=== PATIENT | female | born 1965 | race Caucasian/White ===

== ENCOUNTER → 2016-07-08 | Day surgery (SDC) | payer BC ==
[~2016-07-08] MED LIST: Lactated Ringers 1,000 ML IV SCH; Lactated Ringers 1,000 ML ONE; Midazolam 1 MG/ML 2 ML SDV ONE; Propofol 200 MG/20 ML SDV ONE; Sodium Chloride 0.9% 10 ML Syringe FLUSH PRN; fentaNYL 100 MCG/2 ML SDV ONE
--- NOTE | 2016-07-08 10:34 | PCM.OPNOTE ---
- General Post-Op/Procedure Note Date of Surgery/Procedure: 07/08/16 Operative Procedure(s): 1. Diagnostic EGD with cold forceps biopsy. 2. Diagnostic colonoscopy Pre Op Diagnosis: History of recurrent diverticulitis, personal history of adenomatous colon polyps, history of diarrhea, hematochezia, family history of colon cancer in mother, left lower quadrant pain, history of gastritis, history of duodenitis, history of gastric ulcers, reflux, heartburn, inability to wean from PPI Post-Op Diagnosis: Normal appearing upper endoscopy, normal appearing colonoscopy with no evidence of diverticulitis [place] [facility] [place] [facility] [place]geon: Clarisa Mcwilliams Anesthesia Provider: Anita Lind Special Effects Specialist: Betty Mcclain Pathology: 1. Small bowel biopsy 2. Antral biopsy 3. Distal esophageal biopsy Fluid Replacement, Intraop: 1,200 (mL crystalloid ) EBL in mLs: 1 Complications: None Condition: Good Free Text/Narrative:: INDICATION FOR PROCEDURE: The patient is a 51-year-old woman who was referred to me by KIMBERLI Olguin for evaluation of multiple abdominal complaints and concern for recurrent diverticulitis. The patient has been treated for diverticulitis three times this year. CT yesterday did not demonstrate any diverticulitis. She has previously had colonoscopies in 2009 and 2011. Performing a colonoscopy and EGD and the associated risks of the procedures had been discussed with the patient. The patient found these risks acceptable and agreed to proceed. DESCRIPTION OF PROCEDURE: The patient was taken to the operating room and placed in the left lateral decubitus position. After induction of adequate sedation, a bite block was placed. A standard Olympus gastroscope was inserted into the oropharynx and guided down the esophagus without difficulty. The gastroesophageal junction was appreciated at 39 cm from the teeth. There was no evidence of stricture or esophageal ulcerations. The scope was advanced into the stomach, and there was no gastritis or gastric ulcers. The scope was passed into the proximal jejunum and the duodenum which were unremarkable. There were no petechiae or ulcerations. The proximal jejunum was grossly normal in appearance. Multiple cold forceps biopsies were obtained of the proximal jejunum and duodenum. The scope was withdrawn into the antrum, and additional cold forceps biopsies were obtained. The remainder of the gastric body was examined, and there were no additional findings. The scope was retroflexed, and there was no evidence of hiatal hernia. The scope was straightened and withdrawn to the GE junction. Additional cold forceps biopsies were obtained of the distal esophagus. The scope was withdrawn through the remainder of the esophagus and no further abnormalities were noted. The posterior oropharynx was grossly normal in appearance. The scope was fully withdrawn and attention was then turned to the colonoscopy. A digital rectal exam was performed which was unremarkable. An Olympus colonoscope was inserted into the rectum and guided under direct visualization to the appendiceal orifice and ileocecal valve. The scope was then slowly withdrawn through the colon. The quality of the prep was good. There was no evidence of angiodysplasias, diverticulum or mass lesions. There was no evidence of diverticulitis or other colonic inflammation. The scope was withdrawn into the rectum and retroflexed. There was no significant prominence of the patient's internal hemorrhoids. The scope was straightened, the colon was desufflated,and the scope was withdrawn. The patient was awakened from sedation and transferred to the recovery room in stable condition having tolerated the procedure well. POSTOPERATIVE PLAN: I discussed with the patient my intraoperative findings and recommendations. She should complete her antibiotic course to avoid antibiotic resistance development. I will refer her to Gastroenterology for suspicious of irritable bowel syndrome for further treatment. Also, gallbladder testing may be warranted and I have ordered this for her. She may try to wean off of her Zantac, Protonix, and Carafate as tolerated.
--- NOTE | 2016-07-08 12:25 | PCM.PREANE ---
Preanesthetic Assessment - Anesthesia/Transfusion/Family Hx Anesthesia History: Prior Anesthesia Without Reaction Type of Anesthesia Reaction: Other (see below) Family History of Anesthesia Reaction: No Type of Transfusion Reactions: Reports: Unknown - Review of Systems General: No Symptoms Pulmonary: Shortness of Breath (with activity), Other (asthma) Cardiovascular: No Symptoms, Other (htn) Gastrointestinal: Diarrhea, Nausea, Other (reflux) Other: Reports: Thyroid Problems - Physical Assessment NPO Status Date: 07/07/16 NPO Status Time: 23:30 Pulse: 79 O2 Sat by Pulse Oximetry: 96 Respiratory Rate: 16 Blood Pressure: 141/89 Temperature: 37.4 C Height: 1.6 m Weight: 108.862 kg ASA Class: 3 Mental Status: Alert & Oriented x3 Airway Class: Mallampati = 2 Dentition: Reports: Normal Dentition Thyro-Mental Finger Breadths: 3 Mouth Opening Finger Breadths: 2 ROM/Head Extension: Full - Allergies Allergies/Adverse Reactions: Allergies Allergy/AdvReac Type Severity Reaction Status Date / Time Anesthetics - Amide Type Allergy Rash Verified 07/07/16 13:17 Anesthetics - Radha Type- Allergy Rash Verified 07/07/16 13:17 Parabens [Anesthetics - Radha Type] benzalkonium chloride Allergy Rash Verified 07/07/16 13:17 methylparaben Allergy Rash Verified 07/07/16 13:17 Sulfa (Sulfonamide AdvReac Nausea and Verified 07/07/16 13:17 Antibiotics) Vomiting local anesthetics Allergy Rash Uncoded 07/07/16 13:17 - Blood Blood Available: No Product(s) Available: None - Anesthesia Plan Pre-Op Medication Ordered: None - Acknowledgements Anesthesia Type Planned: MAC Pt an Appropriate Candidate for the Planned Anesthesia: Yes Alternatives and Risks of Anesthesia Discussed w Pt/Guardian: Yes Pt/Guardian Understands and Agrees with Anesthesia Plan: Yes PreAnesthesia Questionnaire Cardiovascular History: Reports: Hypertension, Other (See Below) Other Cardiovascular History: varicose veins Respiratory History: Reports: Asthma Gastrointestinal History: Reports: GERD, Hemorrhoids, Irritable Bowel Syndrome, Other (See Below) Other Gastrointestinal History: adenamatous colon polyp, magligant neoplasm of GI tract, diverticultis, abdominal pain Genitourinary History: Reports: Other (See Below) Other Genitourinary History: dysuria 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: Musculoskeletal History: Reports: Other (See Below) Other Musculoskeletal History: L foot pain Neurological History: Reports: None Psychiatric History: Reports: Depression, Other (See Below) Other Psychiatric History: insomnia Endocrine/Metabolic History: Reports: Hypothyroidism Hematologic History: Reports: Other (See Below) Other Hematologic History: leuokpenia Immunologic History: Reports: None Oncologic (Cancer) History: Reports: None Dermatologic History: Reports: Eczema - Past Surgical History Head Surgeries/Procedures: Reports: None HEENT Surgical History: Reports: Oral Surgery GI Surgical History: Reports: Colonoscopy, EGD Female Surgical History: Reports: Section, Hysterectomy Musculoskeletal Surgical History: Reports: Carpal Tunnel - SUBSTANCE USE Smoking Status *Q: Never Smoker Recreational Drug Use History: No - HOME MEDS Home Medications: Home Meds Ranitidine [Zantac] 150 mg PO BID 05/27/14 [History] Acetaminophen [Tylenol] 2 tab PO Q4H PRN 07/07/16 [History] Ciprofloxacin HCl [Ciprofloxacin HCl] 500 mg PO BID 07/07/16 [History] Citalopram Hydrobromide [Celexa] 40 mg PO DAILY 07/07/16 [History] Hydrochlorothiazide 25 mg PO DAILY 07/07/16 [History] LORazepam [LORazepam] 1 mg PO TID PRN 07/07/16 [History] Levothyroxine Sodium [Levothyroxine Sodium] 25 mcg PO DAILY 07/07/16 [History] Lisinopril 10 mg PO DAILY 07/07/16 [History] Pantoprazole Sodium [Pantoprazole Sodium] 40 mg PO BID 07/07/16 [History] Sucralfate [Carafate] 1 gm PO ASDIRECTED 07/07/16 [History] atorvaSTATin Calcium [Atorvastatin Calcium] 10 mg PO DAILY 07/07/16 [History] metroNIDAZOLE [Metronidazole] 500 mg PO TID 07/07/16 [History] traZODone HCl [Trazodone HCl] 50 mg PO BEDTIME 07/07/16 [History] - CURRENT (IN HOUSE) MEDS Current Meds: Current Medications Lactated Ringer's (Ringers, Lactated) 1,000 mls @ 125 mls/hr IV ASDIRECTED KATHRYN Stop: 07/08/16 23:00 Sodium Chloride (Saline Flush) 10 ml FLUSH ASDIRECTED PRN PRN Reason: Keep Vein Open Stop: 07/08/16 18:00
--- NOTE | 2016-07-08 14:14 | PCM48HPAN ---
Post Anesthesia Note - EVALUATION WITHIN 48HRS OF ANESTHETIC Vital Signs in Normal Range: Yes Patient Participated in Evaluation: Yes Respiratory Function Stable: Yes Airway Patent: Yes Cardiovascular Function Stable: Yes Hydration Status Stable: Yes Pain Control Satisfactory: Yes Nausea and Vomiting Control Satisfactory: Yes Mental Status Recovered: Yes
[2016-07-08 15:02] VITALS: BP 140/80
== END | disposition home or self-care (01) ==
LOC: JD.SDS 11:31
PROVIDERS: ATTEND Surgery
DX: K92.1 Melena (principal); R10.814 Left lower quadrant abdominal tenderness; R12 Heartburn; K21.9 Gastro-esophageal reflux disease without esophagitis; Z87.19 Personal history of other diseases of the digestive system; Z80.0 Family history of malignant neoplasm of digestive organs; I10 Essential (primary) hypertension; J45.909 Unspecified asthma, uncomplicated; E03.9 Hypothyroidism, unspecified; F32.9 Major depressive disorder, single episode, unspecified; Z86.010 Personal history of colon polyps; Z90.710 Acquired absence of both cervix and uterus; Z90.722 Acquired absence of ovaries, bilateral; Z90.49 Acquired absence of other specified parts of digestive tract; Z98.890 Other specified postprocedural states; Z79.899 Other long term (current) drug therapy
CPT/HCPCS: 43239; 45378; 88305; J2250; J3010; J7120; J2704

== ENCOUNTER 2016-07-24 01:57 | Emergency (ER) | payer BC ==
--- NOTE | 2016-07-24 02:14 | EDM.PDOC ---
ED HPI GENERAL MEDICAL PROBLEM - General Chief Complaint: ENT Problem Stated Complaint: NOSE BLEED Time Seen by Provider: 07/24/16 02:14 Source of Information: Reports: Patient History Limitations: Reports: No Limitations - History of Present Illness INITIAL COMMENTS - FREE TEXT/NARRATIVE: 51-year-old female reports that she got up to use the bathroom and felt like she had to blow her nose. When she did so a great deal of blood and clot came from the left naris. Subsequently continued to bleed. Started about 0100 hours this morning the bleeding it will stop when she arrived in the ED. She's not prone to nosebleeds and is been no recent nasal trauma. She is on a CPAP machine that started using about a month ago. She was spitting up blood and some clots as well. She reports no recent cold or allergy symptoms involving the nose. Is not on any blood thinners. He uses Motrin once for while. Onset: Sudden Onset Date: 07/24/16 Onset Time: 01:00 Duration: Hour(s):, Constant, Improving (Was improving at the time of admission to the ED.) Location: Reports: Face (Epistaxis left nares) Severity: Moderate Improves with: Reports: None Worsens with: Reports: None Context: Reports: Other (Awoke to use the bathroom and felt very nasally congested. When she blew her nose a large amount of clot and bleeding started from the left naris. It continued for the last 2 hours.). 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 (see below) (None) - Related Data Allergies Allergy/AdvReac Type Severity Reaction Status Date / Time Anesthetics - Amide Type Allergy Rash Verified 07/24/16 02:05 Anesthetics - Radha Type- Allergy Rash Verified 07/24/16 02:05 Parabens [Anesthetics - Radha Type] benzalkonium chloride Allergy Rash Verified 07/24/16 02:05 methylparaben Allergy Rash Verified 07/24/16 02:05 Sulfa (Sulfonamide AdvReac Nausea and Verified 07/24/16 02:05 Antibiotics) Vomiting local anesthetics Allergy Rash Uncoded 07/24/16 02:05 Home Meds: Home Meds Ranitidine [Zantac] 150 mg PO BID 05/27/14 [History] Acetaminophen [Tylenol] 2 tab PO Q4H PRN 07/07/16 [History] Citalopram Hydrobromide [Celexa] 40 mg PO DAILY 07/07/16 [History] LORazepam 1 mg PO TID PRN 07/07/16 [History] Levothyroxine Sodium 25 mcg PO DAILY 07/07/16 [History] Lisinopril 10 mg PO DAILY 07/07/16 [History] Pantoprazole Sodium 40 mg PO BID 07/07/16 [History] Sucralfate [Carafate] 1 gm PO ASDIRECTED 07/07/16 [History] atorvaSTATin Calcium [Atorvastatin Calcium] 10 mg PO DAILY 07/07/16 [History] traZODone HCl [Trazodone HCl] 50 mg PO BEDTIME PRN 07/07/16 [History] Ibuprofen 400 mg PO ASDIRECTED PRN 07/08/16 [History] Past Medical History Cardiovascular History: Reports: Hypertension, Other (See Below) Other Cardiovascular History: varicose veins Respiratory History: Reports: Asthma, Sleep Apnea (Artery using a CPAP machine about a month ago.) Gastrointestinal History: Reports: GERD, Hemorrhoids, Irritable Bowel Syndrome, Other (See Below) Other Gastrointestinal History: adenamatous colon polyp, magligant neoplasm of GI tract, diverticultis, abdominal pain, gall stones Genitourinary History: Reports: Other (See Below) Other Genitourinary History: dysuria 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: Musculoskeletal History: Reports: Other (See Below) Other Musculoskeletal History: L foot pain Neurological History: Reports: None Psychiatric History: Reports: Depression, Other (See Below) Other Psychiatric History: insomnia Endocrine/Metabolic History: Reports: Hypothyroidism Hematologic History: Reports: Other (See Below) Other Hematologic History: leuokpenia Immunologic History: Reports: None Oncologic (Cancer) History: Reports: None Dermatologic History: Reports: Eczema - Past Surgical History Head Surgeries/Procedures: Reports: None HEENT Surgical History: Reports: Oral Surgery GI Surgical History: Reports: Colonoscopy, EGD Female Surgical History: Reports: Section, Hysterectomy Musculoskeletal Surgical History: Reports: Carpal Tunnel Social & Family History - Tobacco Use Smoking Status *Q: Never Smoker - Caffeine Use Caffeine Use: Reports: Coffee, Soda - Recreational Drug Use Recreational Drug Use: No - Living Situation & Occupation Living situation: Reports: Occupation: Employed ED ROS ENT - Review of Systems Review Of Systems: See Below Constitutional: Denies: Fever, Chills, Malaise, Weakness, Fatigue, Decreased Appetite, Weight Loss HEENT: Reports: Nosebleed Respiratory: Reports: No Symptoms (Left naris as described in history of present illness), Other Cardiovascular: Reports: No Symptoms (Has obstructive sleep apnea uses CPAP for the last month.) Endocrine: Reports: No Symptoms GI/Abdominal: Reports: No Symptoms Musculoskeletal: Reports: No Symptoms Skin: Reports: No Symptoms Neurological: Reports: No Symptoms Psychiatric: Reports: No Symptoms Hematologic/Lymphatic: Reports: No Symptoms Immunologic: Reports: No Symptoms ED EXAM, ENT - Physical Exam Exam: See Below Exam Limited By: No Limitations General Appearance: Alert, WD/WN, No Apparent Distress Eye Exam: Bilateral Eye: Normal Inspection Nose: Active Bleeding (3 minimal), Other (The right nasal mucosa looked normal. The left shows marked inflammation and irritation of the anterior nasal septum. No ulcers are evident. Evidence of recent bleeding evident. No clots present.) Mouth/Throat: Normal Inspection, Normal Gums, Normal Lips, Dental Tenderness, Other (Of blood or clots in the posterior oropharynx or nasopharynx.) Head: Atraumatic, Normocephalic Neck: Normal Inspection, Supple, Non-Tender, Full Range of Motion Respiratory/Chest: No Respiratory Distress, Lungs Clear, Normal Breath Sounds, No Accessory Muscle Use ED ENT PROCEDURES - Epistaxis Procedure Indication: epistaxis, controlled Recent anticoagulants/antiplatlets: No Uncontrolled HTN: No Recent septal/nasal surgery: No Site of bleeding: left nare, anterior Clearing of clots: patient blew nose Ice pack to area: No Chemical cautery: silver nitrate topical Course - Vital Signs Last Recorded V/S: Last Vital Signs Temp 36.0 C 07/24/16 02:00 Pulse 86 07/24/16 02:00 Resp 18 07/24/16 02:00 BP 148/101 H 07/24/16 02:00 Pulse Ox 97 07/24/16 02:00 - Radiology Interpretation Free Text/Narrative:: 50-year-old female presents the ED with acute onset of left-sided epistaxis. She went to use the bathroom and felt nasally congested. When she blew her nose large amount of clot and bleeding then started from the left naris. It has been going on for about an hour and a half before decision made to come to the ED. By the time she got here the bleeding had for the most part subsided. On inspection there is evidence of marked irritation inflammation of the left anterior nasal mucosal. He underwent cauterization with silver nitrate to bring bleeding under control. I will recheck her in 10-15 minutes. - Re-Assessments/Exams Free Text/Narrative Re-Assessment/Exam: 07/24/16 02:51 on reinspection the nasal mucosa appears to been cauterized satisfactory with no further bleeding. Patient will use Polysporin ointment to the inside of each naris at bedtime for the next week. Advised probably place him water to act as a humidification in her CPAP machine as well. She'll use Polysporin on intermittent basis after this to keep the mucosa moist to prevent further nosebleeds. Departure - Departure Time of Disposition: 02:50 Disposition: Home, Self-Care 01 Condition: fair Clinical Impression: Anterior epistaxis - Discharge Information Instructions: Nosebleed, [id number] Referrals: Emelyn Banks, NARROW GAUGE OPERATOR [Primary Care Provider] - Forms: ED Department Discharge Additional Instructions: Evaluation in the interim tonight in regards to acute onset of left-sided nasal bleeding. Exam reveals marked inflammation of the anterior nasal septum on the left side of the nose. The most common causes dry air and decreased humidity in the air to cause dryness of the lining of the nose to cause her to bleed. The vessels are very close to the surface of the skin or mucosa in the nose. Area noted to have been recently bleeding was cauterized with silver nitrate to bring it under control. Suggest treatment at home to be Polysporin ointment on the end of a Q-tip applied to each side of the nasal mucosa on the septum every night at bedtime for the next week and then perhaps 3 times weekly it is possible that current use of CPAP machine is causing the lining of the nose to dry out and precipitating nosebleeds.
[2016-07-24 02:24] VITALS: BP 148/101
== END 2016-07-24 02:59 | disposition home or self-care (01) ==
LOC: JD.ED 01:57
DX: R04.0 Epistaxis (principal); I10 Essential (primary) hypertension; J45.909 Unspecified asthma, uncomplicated; G47.30 Sleep apnea, unspecified; K21.9 Gastro-esophageal reflux disease without esophagitis; F32.9 Major depressive disorder, single episode, unspecified; E03.9 Hypothyroidism, unspecified; Z98.890 Other specified postprocedural states; Z79.899 Other long term (current) drug therapy; Z88.2 Allergy status to sulfonamides; Z88.8 Allergy status to other drugs, medicaments and biological substances
CPT/HCPCS: 30901; 99282-25; 99283-25

== ENCOUNTER → 2016-09-02 | Day surgery (SDC) | payer BC ==
[~2016-09-02] MED LIST changes: +Acetaminophen/oxyCODONE 325-5 MG Tab PO ONE; +Albuterol 6.7 GM Inhaler INH ONE; +Bupivacaine 0.5% 30 ML SDV ONE; +Dexamethasone 4 MG/ML 5 ML MDV ONE; +HYDROmorphone 1 MG/ML Syringe IVPUSH PRN; +Iopamidol 612 MG/ML 50 ML SDV ONE; +Ketamine 500 mg/10 ML MDV ONE; +Ketorolac 30 MG/ML SDV ONE; +Lidocaine 1% 30 ML SDV ONE; +Lidocaine 1% 4 ML ONE; +Lidocaine 1%/Sod Bicarbonate in NS 8.4% 1 ML Syringe IV PRN; +Neostigmine Methylsulfate 1 MG/ML 5 ML Syringe ONE; +Ondansetron 4 MG/2 ML SDV IVPUSH PRN; +Ondansetron 4 MG/2 ML SDV ONE; +Phenylephrine/Normal Saline 100 MCG/ML 10 ML Syringe ONE; +Rocuronium 50 MG/5 ML Vial ONE; +Sodium Chloride 0.9% 50 ML SDV ONE; +ceFAZolin 1 GM Vial ONE; +diphenhydrAMINE 50 MG/ML SDV IVPUSH PRN; +ePHEDrine/Normal Saline 25 MG/5 ML Syringe ONE; +fentaNYL 250 MCG/5 ML SDV ONE
--- NOTE | 2016-09-02 07:02 | PCM.HP ---
H&P History of Present Illness - General Date of Service: 09/02/16 Admit Problem/Dx: Gallstones and abdominal pain Source of Information: Patient History Limitations: Reports: No Limitations - History of Present Illness Initial Comments - Free Text/Narative: Asha is a 51-year-old woman who presents today for laparoscopic cholecystectomy and intraoperative cholangiogram. She was last evaluated in the clinic on 07/28. She denies any health changes since that visit. She previoulsy had primarily pain in the right upper back and pain with the ultrasound on the right and some on the left. ~The pain was worse with fatty foods and beef. This is still the case. She does report increased burping and gassy feelings. An ultrasound of the patient's abdomen on July 17 showed multiple small layering gallstones were noted within the gallbladder. On last check her liver enzymes were normal, however she has a history of having a slightly elevated AST previously. ~She has no history of elevated bilirubin. ~ She has no ilan colored stools. ~She has no history of jaundice. She had a diagnostic EGD and diagnostic colonoscopy on July 08, this was more to evaluate a left lower quadrant abdominal pain which had been suspected to be due to recurrent diverticulitis. ~The patient had no evidence of diverticulitis during her procedure. ~In fact, there were no diverticula. ~She also had a history of adenomatous colon polyps and none were located on recent endoscopy. ~ The patient does have a history of chronic diarrhea, which we have attributed to irritable bowel disease. ~Her mother does have a history of colon cancer. ~ The patient also has a history of gastric ulcers, reflux and heartburn as well as inability to wean from PPI, however her diagnostic EGD including the biopsies obtained were unremarkable. She is allergic to the preservative in local anesthesia only. Recently had lesion removal with use of local without preservative and had no reactions. - Related Data Allergies/Adverse Reactions: Allergies Allergy/AdvReac Type Severity Reaction Status Date / Time Anesthetics - Amide Type Allergy Rash Verified 09/02/16 12:26 Anesthetics - Radha Type- Allergy Rash Verified 09/02/16 12:26 Parabens [Anesthetics - Radha Type] benzalkonium chloride Allergy Rash Verified 09/02/16 12:26 methylparaben Allergy Rash Verified 09/02/16 12:26 Sulfa (Sulfonamide AdvReac Nausea and Verified 09/02/16 12:26 Antibiotics) Vomiting local anesthetics Allergy Mild Rash Uncoded 09/02/16 12:26 Home Medications: Home Meds Ranitidine [Zantac] 150 mg PO BID 05/27/14 [History] Acetaminophen [Tylenol] 2 tab PO Q4H PRN 07/07/16 [History] Citalopram Hydrobromide [Celexa] 40 mg PO DAILY 07/07/16 [History] LORazepam 0.5 mg PO TID PRN 07/07/16 [History] Levothyroxine Sodium 50 mcg PO DAILY 07/07/16 [History] Lisinopril 10 mg PO DAILY 07/07/16 [History] Pantoprazole Sodium 40 mg PO BID 07/07/16 [History] Sucralfate [Carafate] 1 gm PO ASDIRECTED 07/07/16 [History] atorvaSTATin Calcium [Atorvastatin Calcium] 10 mg PO DAILY 07/07/16 [History] traZODone HCl [Trazodone HCl] 50 mg PO BEDTIME PRN 07/07/16 [History] Ibuprofen 400 mg PO ASDIRECTED PRN 07/08/16 [History] Past Medical History Cardiovascular History: Reports: Hypertension, Other (See Below) Other Cardiovascular History: varicose veins Respiratory History: Reports: Asthma, Sleep Apnea Gastrointestinal History: Reports: GERD, Hemorrhoids, Irritable Bowel Syndrome, Other (See Below) Other Gastrointestinal History: adenamatous colon polyp, magligant neoplasm of GI tract, diverticultis, abdominal pain, gall stones Genitourinary History: Reports: Other (See Below) Other Genitourinary History: dysuria 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: Musculoskeletal History: Reports: Other (See Below) Other Musculoskeletal History: L foot pain Neurological History: Reports: None Psychiatric History: Reports: Depression, Other (See Below) Other Psychiatric History: insomnia Endocrine/Metabolic History: Reports: Hypothyroidism Hematologic History: Reports: Other (See Below) Other Hematologic History: leuokpenia Immunologic History: Reports: None Oncologic (Cancer) History: Reports: None Dermatologic History: Reports: Eczema - Past Surgical History Head Surgeries/Procedures: Reports: None HEENT Surgical History: Reports: Oral Surgery GI Surgical History: Reports: Appendectomy, Colonoscopy, EGD Female Surgical History: Reports: Section, Hysterectomy Musculoskeletal Surgical History: Reports: Carpal Tunnel Social & Family History - Tobacco Use Smoking Status *Q: Never Smoker - Caffeine Use Caffeine Use: Reports: Coffee, Soda - Recreational Drug Use Recreational Drug Use: No - Living Situation & Occupation Living situation: Reports: Occupation: Employed H&P Review of Systems - Review of Systems: Review Of Systems: See Below Free Text/Narrative: Denies any exertional chest pain or shortness of breath. No history of any easy bleeding or bruising. No history of clotting disorders. No history of anesthetic complications. No recent cough, colds, flus. All other systems reviewed and were negative except as per history of present illness. General: Reports: No Symptoms. Denies: Fever, Chills, Night Sweats, Diaphoresis HEENT: Reports: No Symptoms Pulmonary: Reports: No Symptoms. Denies: Shortness of Breath, Cough Cardiovascular: Reports: No Symptoms. Denies: Chest Pain, Palpitations, Dyspnea on Exertion Gastrointestinal: Reports: No Symptoms, Other (see hpi ) Genitourinary: Reports: No Symptoms Musculoskeletal: Reports: No Symptoms Skin: Reports: No Symptoms Psychiatric: Reports: No Symptoms Neurological: Reports: No Symptoms Hematologic/Lymphatic: Reports: No Symptoms Immunologic: Reports: No Symptoms Exam - Exam Exam: See Below - Vital Signs Weight: 108.862 kg - Exam General: Alert, Oriented, Cooperative HEENT: Conjunctiva Clear. No: Scleral Icterus Lungs: Clear to Auscultation, Normal Respiratory Effort Cardiovascular: Regular Rate, Regular Rhythm, Normal S1, Normal S2. No: Systolic Murmur, Diastolic Murmur Abdomen: Soft. No: Tenderness Back Exam: Normal Inspection Extremities: Normal Inspection. No: Clubbing, Cyanosis, Edema, Increased Warmth Skin: Warm, Dry, Intact Neurological: Normal Speech Neuro Extensive - Mental Status: Alert, Oriented x3, Normal Mood/Affect, Normal Cognition, Memory Intact Psychiatric: Alert, Normal Affect, Normal Mood *Q Meaningful Use (ADM) - VTE *Q VTE Criteria *Q: - Stroke *Q Stroke Criteria *Q: - AMI *Q AMI Criteria *Q: - Problem List (1) Cholelithiasis SNOMED Code(s): 595845114 ICD Code: K80.20 - CALCULUS OF GALLBLADDER W/O CHOLECYSTITIS W/O OBSTRUCTION Status: Acute Current Visit: Yes Qualifiers: Cholelithiasis location: gallbladder Cholecystitis presence: without cholecystitis Biliary obstruction: without biliary obstruction Qualified Code(s): K80.20 - Calculus of gallbladder without cholecystitis without obstruction (2) Elevated liver enzymes SNOMED Code(s): 947494664, 076624007 ICD Code: R74.8 - ABNORMAL LEVELS OF OTHER SERUM ENZYMES Status: Acute Current Visit: Yes Problem List Initiated/Reviewed/Updated: Yes Orders Last 24hrs: Active Orders 24 hr Category Date Time Status Peripheral IV Care [RC] . DIRECTED Care 09/02/16 07:00 Active Verify Patient Consent Obtain [RC] ASDIRECTED Care 09/02/16 07:00 Active Lactated Ringers [Ringers, Lactated] 1,000 ml Med 09/02/16 07:00 Active IV ASDIRECTED Sodium Chloride 0.9% [Saline Flush] Med 09/02/16 07:00 Active 10 ml FLUSH ASDIRECTED PRN Medication Administration Instruction [OM.PC] Routine Oth 09/02/16 07:00 Ordered Peripheral IV Insertion Adult [OM.PC] Routine Oth 09/02/16 07:00 Ordered Medication Orders Lactated Ringer's (Ringers, Lactated) 1,000 mls @ 125 mls/hr IV ASDIRECTED KATHRYN Stop: 09/02/16 23:00 Sodium Chloride (Saline Flush) 10 ml FLUSH ASDIRECTED PRN PRN Reason: Keep Vein Open Stop: 09/02/16 18:00 Assessment/Plan Comment:: 51 year old female with: 1. Calculus of gallbladder and bile duct without cholecystitis or obstruction 2. Abdominal pain, unspecified location Plan: We will proceed with laparoscopic cholecystectomy with interoperative cholangiogram.This will be scheduled at [facility] due to her body mass index of 42 and her obstructive sleep apnea. Risks~and benefits were reviewed. Previously Explicitly discussed with the patient the possibility of worsening diarrhea and failure to improve her abdominal pain symptoms. Discussed lifting restrictions of no lifting greater than 20 pounds for 4 weeks. She had no further questions or concerns. This patient was evaluated with Dr. Clarisa Mcwilliams, plan formulated by Dr. Clarisa Andrea NP scribing for Dr. Clarisa Mcwilliams
--- NOTE | 2016-09-02 12:18 | PCM.PREANE ---
Preanesthetic Assessment - Procedure Proposed Procedure: Lap Mariola - Anesthesia/Transfusion/Family Hx Anesthesia History: Prior Anesthesia Without Reaction Family History of Anesthesia Reaction: No Transfusion History: No Prior Transfusion(s) Type of Transfusion Reactions: Reports: Unknown Intubation History: Unknown - Review of Systems General: No Symptoms Pulmonary: Other (ADRIANNA with CPAP) Cardiovascular: No Symptoms Gastrointestinal: Other (GERD) Neurological: No Symptoms Other: Reports: Depression - Physical Assessment NPO Status Date: 09/01/16 NPO Status Time: 20:00 Pulse: 78 O2 Sat by Pulse Oximetry: 98 Respiratory Rate: 18 Blood Pressure: 127/88 Temperature: 37.4 C Height: 1.6 m Weight: 108.862 kg ASA Class: 2 Mental Status: Alert & Oriented x3 Airway Class: Mallampati = 2 Dentition: Reports: Missing Tooth/Teeth (multiple molars ) Thyro-Mental Finger Breadths: 3 Mouth Opening Finger Breadths: 3 ROM/Head Extension: Full Lungs: Clear to auscultation, Normal respiratory effort Cardiovascular: Regular Rate, Regular Rhythm - Allergies Allergies/Adverse Reactions: Allergies Allergy/AdvReac Type Severity Reaction Status Date / Time Anesthetics - Amide Type Allergy Rash Verified 09/01/16 15:56 Anesthetics - Radha Type- Allergy Rash Verified 09/01/16 15:56 Parabens [Anesthetics - Radha Type] benzalkonium chloride Allergy Rash Verified 09/01/16 15:56 methylparaben Allergy Rash Verified 09/01/16 15:56 Sulfa (Sulfonamide AdvReac Nausea and Verified 09/01/16 15:56 Antibiotics) Vomiting local anesthetics Allergy Rash Uncoded 09/01/16 15:56 - Blood Blood Available: No Product(s) Available: None - Anesthesia Plan Pre-Op Medication Ordered: None - Acknowledgements Anesthesia Type Planned: General Anesthesia Pt an Appropriate Candidate for the Planned Anesthesia: Yes Alternatives and Risks of Anesthesia Discussed w Pt/Guardian: Yes Pt/Guardian Understands and Agrees with Anesthesia Plan: Yes PreAnesthesia Questionnaire Cardiovascular History: Reports: Hypertension, Other (See Below) Other Cardiovascular History: varicose veins Respiratory History: Reports: Asthma, Sleep Apnea Gastrointestinal History: Reports: GERD, Hemorrhoids, Irritable Bowel Syndrome, Other (See Below) Other Gastrointestinal History: adenamatous colon polyp, magligant neoplasm of GI tract, diverticultis, abdominal pain, gall stones Genitourinary History: Reports: Other (See Below) Other Genitourinary History: dysuria 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: Musculoskeletal History: Reports: Other (See Below) Other Musculoskeletal History: L foot pain Neurological History: Reports: None Psychiatric History: Reports: Depression, Other (See Below) Other Psychiatric History: insomnia Endocrine/Metabolic History: Reports: Hypothyroidism Hematologic History: Reports: Other (See Below) Other Hematologic History: leuokpenia Immunologic History: Reports: None Oncologic (Cancer) History: Reports: None Dermatologic History: Reports: Eczema - Past Surgical History Head Surgeries/Procedures: Reports: None HEENT Surgical History: Reports: Oral Surgery GI Surgical History: Reports: Appendectomy, Colonoscopy, EGD Female Surgical History: Reports: Section, Hysterectomy Musculoskeletal Surgical History: Reports: Carpal Tunnel - SUBSTANCE USE Smoking Status *Q: Never Smoker Recreational Drug Use History: No - HOME MEDS Home Medications: Home Meds Ranitidine [Zantac] 150 mg PO BID 05/27/14 [History] Acetaminophen [Tylenol] 2 tab PO Q4H PRN 07/07/16 [History] Citalopram Hydrobromide [Celexa] 40 mg PO DAILY 07/07/16 [History] LORazepam 0.5 mg PO TID PRN 07/07/16 [History] Levothyroxine Sodium 50 mcg PO DAILY 07/07/16 [History] Lisinopril 10 mg PO DAILY 07/07/16 [History] Pantoprazole Sodium 40 mg PO BID 07/07/16 [History] Sucralfate [Carafate] 1 gm PO ASDIRECTED 07/07/16 [History] atorvaSTATin Calcium [Atorvastatin Calcium] 10 mg PO DAILY 07/07/16 [History] traZODone HCl [Trazodone HCl] 50 mg PO BEDTIME PRN 07/07/16 [History] Ibuprofen 400 mg PO ASDIRECTED PRN 07/08/16 [History] - CURRENT (IN HOUSE) MEDS Current Meds: Current Medications Lactated Ringer's (Ringers, Lactated) 1,000 mls @ 125 mls/hr IV ASDIRECTED KATHRYN Stop: 09/02/16 23:00 Sodium Chloride (Saline Flush) 10 ml FLUSH ASDIRECTED PRN PRN Reason: Keep Vein Open Stop: 09/02/16 18:00 Discontinued Medications Dexamethasone (Dexamethasone) Confirm Administered Dose 20 mg .ROUTE .STK-MED ONE Stop: 09/02/16 12:17 Fentanyl (Sublimaze) Confirm Administered Dose 250 mcg .ROUTE .STK-MED ONE Stop: 09/02/16 12:15 Lidocaine HCl (Xylocaine-Mpf 1%) Confirm Administered Dose 4 mls @ as directed .ROUTE .STK-MED ONE Stop: 09/02/16 12:17 Lidocaine/Sodium Bicarbonate (Buffered Lidocaine 1% In Ns 8.4%) 0.25 ml IV ONETIME PRN PRN Reason: Prior to IV Start Midazolam HCl (Versed 1 Mg/Ml) Confirm Administered Dose 2 mg .ROUTE .STK-MED ONE Stop: 09/02/16 12:15 Ondansetron HCl (Zofran) Confirm Administered Dose 4 mg .ROUTE .STK-MED ONE Stop: 09/02/16 12:17 Propofol (Diprivan 20 Ml) Confirm Administered Dose 200 mg .ROUTE .STK-MED ONE Stop: 09/02/16 12:15 Rocuronium [place] (Zemuron) Confirm Administered Dose 50 mg .ROUTE .STK-MED ONE Stop: 09/02/16 12:17
[2016-09-02] MEDS: Iopamidol 612 MG/ML 50 ML SDV ONE ×2 (13:13→14:17)
[2016-09-02] MEDS: Sodium Chloride 0.9% 50 ML SDV ONE ×2 (13:14→14:17)
--- NOTE | 2016-09-02 15:24 | PCM.OPNOTE ---
- General Post-Op/Procedure Note Date of Surgery/Procedure: 09/02/16 Operative Procedure(s): 1. Laparoscopic cholecystectomy with intraoperative cholangiogram. 2. Fluoroscopic guidance and interpretation Pre Op Diagnosis: Symptomatic cholelithiases Post-Op Diagnosis: Symptomatic cholelithiases, question of possible small non- obstructing gallstones in the cystic duct, fatty liver Anesthesia Technique: General ET tube, Local Primary Surgeon: Clarisa Mcwilliams Anesthesia Provider: Taisha Hernandez Pathology: Gallbladder Fluid Replacement, Intraop: 2,200 (mL crystalloid ) EBL in mLs: 30 Complications: None Condition: Good Free Text/Narrative:: INDICATION FOR PROCEDURE: The patient is a 51-year-old woman who had been referred to me by KIMBERLI Olguin. I had been working her up for chronic abdominal pain when gallstones were discovered. She did have a remote history of elevated transaminases. I discussed with the patient performing a laparoscopic cholecystectomy with intraoperative cholangiogram and associated risks of the procedure. The patient found these risks acceptable and agreed to proceed. DESCRIPTION OF PROCEDURE: The patient was taken to the operating room and placed in the supine position. Sequential compressive devices were placed on the bilateral lower extremities. After induction of general endotracheal anesthesia, the abdomen was prepped and draped in the usual sterile fashion. Preoperative antibiotics had been administered as per protocol. Due to the patient's body habitus, her umbilicus was low, and a supraumbilical small vertical midline incision was made using a scalpel. This was deepened down through the subcutaneous tissues to the anterior abdominal wall fascia which was elevated with Kochers and incised. The abdomen was bluntly entered using a hemostat. An 0 Vicryl stay suture was placed. A Rossi cannula was introduced into the abdomen and the abdomen was insufflated to 15 mm of mercury. The abdomen was then surveyed. There was fatty change of the liver. There was a large amount of intra-abdominal fat with an extremely fatty omentum. It was difficult to visualize the other intra-abdominal organs. Attention was turned then to the patient's gallbladder which was distended and white in color. Three additional 5 mm trocars were then placed under direct visualization after first injecting local anesthetic, one in the epigastrium, one in the right subcostal margin, and one in the right lateral abdomen. The gallbladder fundus was elevated, and the triangle of Calot was dissected. The infundibulum was difficult to dissect due to the large overhanging fatty liver. The critical view of safety was obtained. The Latif cholangiocatheter clamp was placed and the catheter advanced into the infundibulum under direct visualization. A cholangiogram was performed, unfortunately there was back fill into the gallbladder which decreased the quality of the images. There was free flow contrast into the duodenum. There appeared to be a smooth and tapered common bile duct with no evidence of stricture or obstruction/filling defects. However, there did appear to be several small filling defects in the cystic duct , but contrast was traveling around the defects. Retrograde flow was seen into the common hepatic duct and hepatic radicals without obvious abnormality. It was not an optimal study. The cholangiocatheter was removed. The cystic duct was then triply clipped and fully transected. The cystic artery was then triply clipped and transected using Endo Misa. The gallbladder was then taken off the liver bed using hook electrocautery. The gallbladder was placed into an EndoCatch bag. The abdomen was irrigated and suctioned until the effluent was clear. The liver bed was reinspected for hemostasis. The 5 mm trocars were removed with no evidence of bleeding. The Rossi cannula and gallbladder within the EndoCatch bag were then removed. There were multiple small stones within the gallbladder. The patient's fascial incision was closed using an 0-Vicryl [id number] suture. Additional local anesthetic was injected janay-incisionally. The incisions were then closed using subcuticular 4-0 Monocryl suture. Dermabond was placed over the patient's skin incisions. The patient was then awakened from anesthesia, extubated, and transferred to the recovery room in stable condition having tolerated the procedure well. Sponge and instrument counts were reported as correct at the end of the case. POSTOPERATIVE PLAN: The patient will be discharged home today. Prescriptions for Percocet 5/325mg were given in addition to Zofran ODT. They will follow up in 2 weeks for a post- operative check. They are not lift over 20 pounds for the next 4 weeks. They are to call the office with any questions or concerns. I would like her to obtain an MRCP within the following week to confirm the imaging from fluoroscopy as the intraoperative cholangiogram was suboptimal.
--- NOTE | 2016-09-02 15:41 | PCM.POSTAN ---
POST ANESTHESIA ASSESSMENT - MENTAL STATUS Mental Status: other (drowsy ) - VITAL SIGNS Pulse Rate: 104 SaO2: 98 Resp Rate: 10 Blood Pressure: 97/59 Temperature: 97.9 C - RESPIRATORY Respiratory Status: respiratory rate WNL, airway patent, O2 saturation stable - CARDIOVASCULAR CV Status: pulse rate WNL, blood pressure stable - GASTROINTESTINAL GI Status: no symptoms - PAIN Pain Score: 5 - POST OP HYDRATION Hydration Status: adequate & stable
[2016-09-02] MEDS: fentaNYL 100 MCG/2 ML SDV IVPUSH PRN ×3 (15:42→16:18)
[2016-09-02 18:38] VITALS: BP 151/88
--- NOTE | 2016-09-06 13:33 | CR ---
Operative cholangiogram Technique: Multiple fluoroscopic spot views were obtained. Study obtained utilizing C-arm device in the operating room. Findings: Filling defects are seen within the cystic duct presumably representing gallstones. There is no contrast within the duodenum suggesting distal CBD obstruction. No additional abnormality is appreciated. Impression: 1. Filling defects within the cystic duct is suspicious for gallstones. 2. Lack of contrast within the duodenum and difficult to exclude obstructing distal CBD stone. Diagnostic code #3
== END | disposition home or self-care (01) ==
LOC: JD.SDS 11:13
PROVIDERS: ATTEND Surgery
DX: K80.10 Calculus of gallbladder with chronic cholecystitis without obstruction (principal); K76.0 Fatty (change of) liver, not elsewhere classified; Z88.4 Allergy status to anesthetic agent; Z88.2 Allergy status to sulfonamides; Z88.8 Allergy status to other drugs, medicaments and biological substances; I10 Essential (primary) hypertension; K21.9 Gastro-esophageal reflux disease without esophagitis; G47.30 Sleep apnea, unspecified; F32.9 Major depressive disorder, single episode, unspecified; E03.9 Hypothyroidism, unspecified
CPT/HCPCS: 47563; 74300; 88304; A9270; J0690; J1100; J1885; J2250; J2405; J2710; J3010; J7050; J7120; Q9967; 00790; J2704

== ENCOUNTER 2018-06-29 07:35 | Emergency (ER) | payer BC ==
[2018-06-29 07:46] VITALS: BP 133/85
--- NOTE | 2018-06-29 07:59 | EDM.PDOC ---
ED HPI GENERAL MEDICAL PROBLEM - General Chief Complaint: Lower Extremity Injury/Pain Stated Complaint: HURT RIGHT KNEE Time Seen by Provider: 06/29/18 07:52 Source of Information: Reports: Patient History Limitations: Reports: No Limitations - History of Present Illness INITIAL COMMENTS - FREE TEXT/NARRATIVE: 53-year-old female presents to the ED with acute right medial knee pain that occurred spontaneously while sitting on the couch last night. She felt a pop tearing sensation in the medial aspect of her knee which cause severe pain. Limited ability to weight-bear this morning. Kept her awake a good portion of the night as well. She is known to have arthritic changes in both knees. She's been told she needs a left total knee replacement. She just recently underwent L -spine surgery and in the sciatica was on the right leg. This is slowly getting better. She did take a Flexeril and hydrocodone tablet last night for pain relief with minimal relief in the right knee. Has had no surgery to either knee. 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) (A hydrocodone tablet last night with minimal relief of the pain.) - Related Data Allergies Allergy/AdvReac Type Severity Reaction Status Date / Time Anesthetics - Amide Type Allergy Rash Verified 09/02/16 12:26 Anesthetics - Radha Type- Allergy Rash Verified 09/02/16 12:26 Parabens [Anesthetics - Radha Type] benzalkonium chloride Allergy Rash Verified 09/02/16 12:26 methylparaben Allergy Rash Verified 09/02/16 12:26 Sulfa (Sulfonamide AdvReac Nausea and Verified 09/02/16 12:26 Antibiotics) Vomiting local anesthetics Allergy Mild Rash Uncoded 09/02/16 12:26 Home Meds: Home Meds Ranitidine [Zantac] 150 mg PO BID 05/27/14 [History] Acetaminophen [Tylenol] 2 tab PO Q4H PRN 07/07/16 [History] Citalopram Hydrobromide [Celexa] 40 mg PO DAILY 07/07/16 [History] LORazepam 0.5 mg PO TID PRN 07/07/16 [History] Levothyroxine Sodium 50 mcg PO DAILY 07/07/16 [History] Lisinopril 10 mg PO DAILY 07/07/16 [History] Pantoprazole Sodium 40 mg PO BID 07/07/16 [History] Sucralfate [Carafate] 1 gm PO ASDIRECTED 07/07/16 [History] atorvaSTATin Calcium [Atorvastatin Calcium] 10 mg PO DAILY 07/07/16 [History] traZODone HCl [Trazodone HCl] 50 mg PO BEDTIME PRN 07/07/16 [History] Meloxicam 15 mg PO DAILY #12 tablet 06/29/18 [Rx] oxyCODONE HCl/Acetaminophen [Percocet 5-325 mg Tablet] 1 - 2 each PO Q4H PRN # 20 tablet 06/29/18 [Rx] Past Medical History Cardiovascular History: Reports: Hypertension, Other (See Below) Other Cardiovascular History: varicose veins Respiratory History: Reports: Asthma, Sleep Apnea Gastrointestinal History: Reports: GERD, Hemorrhoids, Irritable Bowel Syndrome, Other (See Below) Other Gastrointestinal History: adenamatous colon polyp, magligant neoplasm of GI tract, diverticultis, abdominal pain, gall stones Genitourinary History: Reports: Other (See Below) Other Genitourinary History: dysuria 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: Musculoskeletal History: Reports: Back Pain, Chronic, Other (See Below) Other Musculoskeletal History: L foot pain Neurological History: Reports: None Psychiatric History: Reports: Depression, Other (See Below) Other Psychiatric History: insomnia Endocrine/Metabolic History: Reports: Hypothyroidism, Obesity/BMI 30+ Hematologic History: Reports: Other (See Below) Other Hematologic History: leuokpenia Immunologic History: Reports: None Oncologic (Cancer) History: Reports: None Dermatologic History: Reports: Eczema - Past Surgical History Head Surgeries/Procedures: Reports: None HEENT Surgical History: Reports: Oral Surgery GI Surgical History: Reports: Appendectomy, Colonoscopy, EGD Female Surgical History: Reports: Section, Hysterectomy Musculoskeletal Surgical History: Reports: Carpal Tunnel Other Musculoskeletal Surgeries/Procedures:: Lower lumbar fusion. Social & Family History - Tobacco Use Smoking Status *Q: Never Smoker - Caffeine Use Caffeine Use: Reports: Coffee - Recreational Drug Use Recreational Drug Use: No - Living Situation & Occupation Living situation: Reports: Occupation: Employed Review of Systems - Review of Systems Review Of Systems: See Below Constitutional: Denies: Chills, Diaphoresis, Fever, Weakness, Other Eyes: Reports: No Symptoms Ears: Reports: No Symptoms Nose: Reports: No Symptoms Mouth/Throat: Reports: No Symptoms Respiratory: Reports: No Symptoms Cardiovascular: Reports: Other (History of hypertension.) GI/Abdominal: Reports: Other (History of GERD) Genitourinary: Reports: No Symptoms Musculoskeletal: Reports: Back Pain (Recently underwent surgery L-spine for discectomy laminectomy right sided sciatica.), Joint Pain (Today presents with acute onset of right medial joint knee pain) Skin: Reports: No Symptoms ( since last night.) Neurological: Reports: Paresthesia Psychiatric: Reports: Depression (Depression.), Anxiety ED EXAM, GENERAL - Physical Exam Exam: See Below Exam Limited By: No Limitations General Appearance: Alert, WD/WN, Mild Distress Eye Exam: Bilateral Eye: Normal Inspection (No abnormalities detected) Extremities: Other (Examination of her right knee shows no evidence of a traumatic effusion. No pain along the lateral joint line or in the distribution of the lateral collateral ligament. There is marked tenderness along the medial joint line pain starting anteriorly and worsening at joint space at the site of mid medial collateral ligament insertion. There is some tenderness along the distribution of the superior and inferior insertion sites of medial collateral ligament. Cruciate ligaments are intact.) Neurological: Alert, Oriented, CN II-XII Intact, Normal Cognition Psychiatric: Normal Affect, Normal Mood Skin Exam: Warm, Dry, Intact, Normal Color, No Rash Course - Vital Signs Last Recorded V/S: Last Vital Signs Temp 37.0 C 06/29/18 07:43 Pulse 120 H 06/29/18 07:43 Resp 18 06/29/18 07:43 BP 133/85 06/29/18 07:43 Pulse Ox 96 06/29/18 07:43 - Orders/Labs/Meds Orders: Active Orders 24 hr Category Date Time Status Ondansetron [Zofran ODT] Med 06/29/18 09:35 Active 4 mg PO Q4H PRN Medication Orders Ondansetron HCl (Zofran Odt) 4 mg PO Q4H PRN PRN Reason: Nausea/Vomiting Last Admin: 06/29/18 09:45 Dose: 4 mg Meds: Medications Generic Name Dose Route Start Last Admin Trade Name Freq PRN Reason Stop Dose Admin Ondansetron HCl 4 mg 06/29/18 09:35 06/29/18 09:45 Zofran Odt PO 4 mg Q4H PRN Administration Nausea/Vomiting Discontinued Medications Generic Name Dose Route Start Last Admin Trade Name Freq PRN Reason Stop Dose Admin Hydromorphone HCl 1 mg 06/29/18 09:35 06/29/18 09:45 Dilaudid IM 06/29/18 09:36 1 mg ONETIME ONE Administration - Radiology Interpretation Free Text/Narrative:: 53-year-old female presents to the ED with acute medial right knee pain since last night. She is on the couch when she felt a pop tearing sensation in her right knee. Pain was severe at the time and has not let up much overnight. This morning she can barely weight-bear. Clinically she appears to torn her medial meniscus and the right knee. However she mentions that her left knee is bad enough that she needs a total knee replacement. Therefore x-rays of the right knee will be obtained to see how much general arthritic changes there is an whether or not there are any loose bodies that she's been having pain in the right knee. Will look for loose bodies. - Re-Assessments/Exams Free Text/Narrative Re-Assessment/Exam: 06/29/18 09:05: X-ray of the right knee reveals degenerative changes at the patellofemoral joint including a spur off the inferior pole of the patella. There is also significant narrowing of the medial joint space compatible with degenerative arthritis. No fractures are identified and no loose bodies were identified within the joint space. Patient will be discharged home in a right knee immobilizer to be on during the day and off at night. She will be using a walker to aid her gait since she only had back surgery last week with fusion. It has relieved her sciatic in her right leg. Apparently she had spinal stenosis. I was unable to stress the meniscus in her right knee due to inability to roll over 4-6 comfortably at the edge of the bed. Therefore my plan is to adopt a wait and see approach and see if things settle down her right knee over the next 10-14 days. If not then MRI of the knee can be done to assess the medial meniscus. He definitely is pain along the medial joint space and over the distribution of the medial collateral ligament particularly over the joint space. If this is the case then she will settle down over the next week to 10 days. He is on Flexeril 10 mg every every 8 hours when necessary for muscle spasm in her right leg and pain relief and hydrocodone 5/3/25 which is not finding very effective. Will switch her to Percocet 5/3/25 milligrams one or 2 every 4-6 hours for pain relief. Also we'll add meloxicam 15 mg once daily to her treatment plan for the next 12 days. She will follow up with Emma Santoro--her normal care provider , in 12 days time. Departure - Departure Time of Disposition: 09:42 Disposition: Home, Self-Care 01 Condition: Fair Clinical Impression: Strain of right knee Qualifiers: Encounter type: initial encounter Qualified Code(s): S86.911A - Strain of unspecified muscle(s) and tendon(s) at lower leg level, right leg, initial encounter - Discharge Information *PRESCRIPTION DRUG MONITORING PROGRAM REVIEWED*: Not Applicable *COPY OF PRESCRIPTION DRUG MONITORING REPORT IN PATIENT TOMÁS: Not Applicable Prescriptions: Meloxicam 15 mg PO DAILY #12 tablet oxyCODONE HCl/Acetaminophen [Percocet 5-325 mg Tablet] 1 - 2 each PO Q4H PRN # 20 tablet PRN Reason: pain relief. Instructions: How to Use a Knee Immobilizer, [id number], Muscle Strain Referrals: Emma Santoro PA-C [Primary Care Provider] - Forms: ED Department Discharge Additional Instructions: Evaluation the emergency room today in regards to acute injury to the medial aspect of your right knee. This occurred spontaneously while sitting on the cultures last night. Examination reveals marked pain along the medial joint space of the right knee particularly in the distribution of the medial collateral ligament and I suspect the ligament itself was straining. There is no blood within the joint to suggest internal derangement or tear. There is always a possibility of torn medial meniscus or cartilage in the knee. Suggest conservative treatment for the next 10-12 days and then review with her normal care provider Emma Santoro. Suggest knee immobilizer on during the day and off at night. You may wear it at night if necessary if you up to the bathroom and good deal. Placed her hydrocodone tablets on hold until finishing the Percocet tablets that we started today for pain relief. Use meloxicam 15 mg once daily for 12 days to relieve pain and inflammation the right knee. Suggest using a walker teenager gait and balance since you have had recent back surgery and now right knee pain. Suggest purchasing MiraLAX powder 17 g in using 1 scoop or 17 g daily while you are on the pain medications as they all like to cause constipation. Ache follow-up appointment to see Emma In 12 days time. - My Orders Last 24 Hours: My Active Orders 06/29/18 09:35 Ondansetron [Zofran ODT] 4 mg PO Q4H PRN - Assessment/Plan Last 24 Hours: My Active Orders 06/29/18 09:35 Ondansetron [Zofran ODT] 4 mg PO Q4H PRN
--- NOTE | 2018-06-29 09:20 | CR ---
Right knee: Four views of the right knee were obtained as well as an additional sunrise patellar view. Comparison: No prior right knee exam. Mild joint space narrowing is seen within the patellofemoral joint. Moderate narrowing of the medial joint compartment is seen. Medial osteophytes are noted. No joint effusion is seen. No discrete fracture or other abnormality is appreciated. Impression: 1. Degenerative change as noted above. Diagnostic code #2
[2018-06-29] MEDS ORDERED: HYDROmorphone 1 MG/ML Syringe IM ONE (09:35)
[2018-06-29] MEDS ORDERED: Ondansetron 4 MG Tab.DIS PO PRN (09:35)
== END 2018-06-29 10:00 | disposition home or self-care (01) ==
LOC: JD.ED 07:35
DX: S86.911A Strain of unspecified muscle(s) and tendon(s) at lower leg level, right leg, initial encounter (principal); J45.909 Unspecified asthma, uncomplicated; K21.9 Gastro-esophageal reflux disease without esophagitis; I10 Essential (primary) hypertension; F32.9 Major depressive disorder, single episode, unspecified; Z88.8 Allergy status to other drugs, medicaments and biological substances; Z88.2 Allergy status to sulfonamides; Z79.899 Other long term (current) drug therapy; X50.9XXA Other and unspecified overexertion or strenuous movements or postures, initial encounter
CPT/HCPCS: 73564; 96372; 99283; A9270; J1170

== ENCOUNTER 2018-11-07 08:06 | Inpatient (IN) | payer BC ==
[~2018-11-07 08:06] MED LIST changes: +Acetaminophen 325 MG Tab PO SCH; -Acetaminophen/oxyCODONE 325-5 MG Tab PO ONE; -Albuterol 6.7 GM Inhaler INH ONE; -Bupivacaine 0.5% 30 ML SDV ONE; -Dexamethasone 4 MG/ML 5 ML MDV ONE; +EPINEPHrine 1 MG/1 ML Amp ONE; -HYDROmorphone 1 MG/ML Syringe IVPUSH PRN; -Iopamidol 612 MG/ML 50 ML SDV ONE; -Ketamine 500 mg/10 ML MDV ONE; -Ketorolac 30 MG/ML SDV ONE; -Lactated Ringers 1,000 ML ONE; +Lidocaine 1% 2 ML ONE; -Lidocaine 1% 30 ML SDV ONE; -Lidocaine 1% 4 ML ONE; +Lidocaine 1%/Sod Bicarbonate in NS 8.4% 1 ML Syringe IDERM PRN; -Lidocaine 1%/Sod Bicarbonate in NS 8.4% 1 ML Syringe IV PRN; -Neostigmine Methylsulfate 1 MG/ML 5 ML Syringe ONE; -Ondansetron 4 MG/2 ML SDV IVPUSH PRN; -Ondansetron 4 MG/2 ML SDV ONE; -Phenylephrine/Normal Saline 100 MCG/ML 10 ML Syringe ONE; +Pregabalin 25 MG Cap PO SCH; -Rocuronium 50 MG/5 ML Vial ONE; +Ropivacaine 0.5% 5 MG/ML 30 ML SDV ONE; -Sodium Chloride 0.9% 50 ML SDV ONE; -diphenhydrAMINE 50 MG/ML SDV IVPUSH PRN; -ePHEDrine/Normal Saline 25 MG/5 ML Syringe ONE; -fentaNYL 250 MCG/5 ML SDV ONE; +oxyCODONE ER 10 MG TAB.ER PO SCH
[2018-11-07] MEDS ORDERED: ceFAZolin 1 GM Vial ONE (08:29)
[2018-11-07] MEDS ORDERED: Vancomycin 1 GM SDV ONE (08:29)
[2018-11-07] MEDS ORDERED: Bupivacaine 0.25% 10 ML SDV ONE (08:29)
[2018-11-07] MEDS ORDERED: Iodine/Sodium Iodide 2% Tincture 30 ML Bottle ONE (08:29)
--- NOTE | 2018-11-07 08:52 | PCM.PREANE ---
Preanesthetic Assessment - Anesthesia/Transfusion/Family Hx Anesthesia History: Prior Anesthesia Without Reaction Family History of Anesthesia Reaction: No (feels like starting cold with stuffy nose and cough) Transfusion History: No Prior Transfusion(s) Type of Transfusion Reactions: Reports: Unknown Intubation History: Unknown - Review of Systems General: Other (morbid obese with BMI of 42) Pulmonary: Other (ADRIANNA with CPAP, asthma) Cardiovascular: Other (HTn , EKG demonstrated NSR) Gastrointestinal: Other (GERD, history of colon ca) Neurological: No Symptoms Other: Reports: Thyroid Problems, Depression - Physical Assessment NPO Status Date: 11/06/18 NPO Status Time: 23:00 Vital Signs: Last Vital Signs Temp 37.6 C 11/07/18 08:15 Pulse 86 11/07/18 08:15 Resp 16 11/07/18 08:15 BP 154/86 H 11/07/18 08:15 Pulse Ox 96 11/07/18 08:15 Height: 1.6 m Weight: 111 kg ASA Class: 3 Mental Status: Alert & Oriented x3 Dentition: Reports: Normal Dentition Thyro-Mental Finger Breadths: 3 Mouth Opening Finger Breadths: 3 ROM/Head Extension: Full Lungs: Clear to Auscultation, Normal Respiratory Effort Cardiovascular: Regular Rate, Regular Rhythm - Lab Values: Laboratory Last Values MRSA (PCR) Negative 10/18/18 10:45 - Allergies Allergies/Adverse Reactions: Allergies Allergy/AdvReac Type Severity Reaction Status Date / Time Sulfa (Sulfonamide AdvReac Nausea and Verified 11/04/18 13:34 Antibiotics) Vomiting preservatives in anesthetics Allergy Hives Uncoded 11/04/18 13:34 - Blood Blood Available: No Product(s) Available: None - Anesthesia Plan Pre-Op Medication Ordered: None Beta Lory: Metoprolol Med Last Dose Date: 11/07/18 Med Last Dose Time: 07:00 - Acknowledgements Anesthesia Type Planned: Spinal Pt an Appropriate Candidate for the Planned Anesthesia: Yes Alternatives and Risks of Anesthesia Discussed w Pt/Guardian: Yes Pt/Guardian Understands and Agrees with Anesthesia Plan: Yes PreAnesthesia Questionnaire Cardiovascular History: Reports: Hypertension, Other (See Below) Other Cardiovascular History: varicose veins Respiratory History: Reports: Asthma, Sleep Apnea Gastrointestinal History: Reports: GERD, Hemorrhoids, Irritable Bowel Syndrome, Other (See Below) Other Gastrointestinal History: adenamatous colon polyp, magligant neoplasm of GI tract, diverticultis, abdominal pain, gall stones Genitourinary History: Reports: Other (See Below) Other Genitourinary History: dysuria 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: Musculoskeletal History: Reports: Back Pain, Chronic, Other (See Below) Other Musculoskeletal History: L foot pain Neurological History: Reports: None Psychiatric History: Reports: Depression, Other (See Below) Other Psychiatric History: insomnia Endocrine/Metabolic History: Reports: Hypothyroidism, Obesity/BMI 30+ Hematologic History: Reports: Other (See Below) Other Hematologic History: leuokpenia Immunologic History: Reports: None Oncologic (Cancer) History: Reports: None Dermatologic History: Reports: Eczema - Past Surgical History Head Surgeries/Procedures: Reports: None HEENT Surgical History: Reports: Oral Surgery Respiratory Surgical History: Reports: None GI Surgical History: Reports: Appendectomy, Colonoscopy, EGD Female Surgical History: Reports: Section, Hysterectomy Neurological Surgical History: Reports: None Musculoskeletal Surgical History: Reports: Carpal Tunnel Other Musculoskeletal Surgeries/Procedures:: Lower lumbar fusion. - SUBSTANCE USE Smoking Status *Q: Never Smoker Second Hand Smoke Exposure: No Recreational Drug Use History: No - HOME MEDS Home Medications: Home Meds Ranitidine [Zantac] 150 mg PO BID 05/27/14 [History] Citalopram Hydrobromide [Celexa] 40 mg PO DAILY 07/07/16 [History] Lisinopril 10 mg PO DAILY 07/07/16 [History] Pantoprazole Sodium 40 mg PO BID 07/07/16 [History] atorvaSTATin Calcium [Atorvastatin Calcium] 10 mg PO DAILY 07/07/16 [History] Cyclobenzaprine [Flexeril] 2.5 mg PO TID PRN 11/04/18 [History] Levothyroxine [Synthroid] 50 mcg PO DAILY 11/04/18 [History] Metoprolol Succinate 25 mg PO DAILY 11/04/18 [History] Ondansetron HCl [Zofran] 4 mg PO DAILY 11/04/18 [History] metFORMIN HCl [Metformin HCl ER] 500 mg PO DAILY 11/04/18 [History] traMADol HCl [Tramadol HCl] 50 mg PO Q6H PRN 11/04/18 [History] - CURRENT (IN HOUSE) MEDS Current Meds: Current Medications Acetaminophen (Tylenol) 975 mg PO ONETIME [facility] Stop: 11/07/18 13:00 Last Admin: 11/07/18 08:27 Dose: 975 mg Bisacodyl (Dulcolax) 5 mg PO DAILY PRN PRN Reason: Constipation Morphine Sulfate 8 mg/Epinephrine HCl 0.3 mg/Cefuroxime Sodium 750 mg/Ketorolac Tromethamine 30 mg/Sodium Chloride 27.9 ml 0 mg .XX ONETIME ONE Stop: 11/07/18 10:01 Cyclobenzaprine HCl (Flexeril) 10 mg PO BID PRN PRN Reason: Spasms Docusate Sodium (Colace) 100 mg PO BID [facility] Lactated Ringer's (Ringers, Lactated) 1,000 mls @ 125 mls/hr IV ASDIRECTED [facility] Stop: 11/07/18 23:00 Cefazolin Sodium/Dextrose 2 gm (/ Premix) 50 mls @ 100 mls/hr IV Q8H [facility] Stop: 11/08/18 06:59 Ketorolac Tromethamine (Toradol) 15 mg IVPUSH Q6H PRN PRN Reason: Pain Lidocaine/Sodium Bicarbonate (Buffered Lidocaine 1% In Ns 8.4%) 0.25 ml IDERM ONETIME PRN PRN Reason: Prior to IV Start Stop: 11/07/18 18:00 Magnesium Hydroxide (Milk Of Magnesia) 30 ml PO BID PRN PRN Reason: Constipation Morphine Sulfate (Morphine) 2 mg IVPUSH Q2H PRN PRN Reason: Breakthrough Pain Naloxone HCl (Narcan) 0.1 mg IVPUSH Q5M PRN PRN Reason: Oversedation Ondansetron HCl (Zofran) 4 mg IVPUSH Q6H PRN PRN Reason: Nausea/Vomiting Oxycodone HCl (Oxycontin) 10 mg PO ONETIME [facility] Stop: 11/07/18 13:00 Last Admin: 11/07/18 08:27 Dose: 10 mg Oxycodone/Acetaminophen (Percocet 325-5 Mg) 1 - 2 tab PO Q4H PRN PRN Reason: Pain Pregabalin (Lyrica) 50 mg PO ONETIME [facility] Stop: 11/07/18 13:00 Last Admin: 11/07/18 08:27 Dose: 50 mg Rivaroxaban (Xarelto) 10 mg PO DAILY KATHRYN Senna (Senna) 8.6 mg PO BID PRN PRN Reason: Constipation Sodium Chloride (Saline Flush) 10 ml FLUSH ASDIRECTED PRN PRN Reason: Keep Vein Open Stop: 11/07/18 18:00 Discontinued Medications Bupivacaine HCl (Sensorcaine-Mpf 0.25%) Confirm Administered Dose 30 ml .ROUTE .STK-MED ONE Stop: 11/07/18 08:30 Cefazolin Sodium (Ancef) Confirm Administered Dose 2 gm .ROUTE .STK-MED ONE Stop: 11/07/18 07:06 Cefazolin Sodium (Ancef) Confirm Administered Dose 2 gm .ROUTE .STK-MED ONE Stop: 11/07/18 08:30 Epinephrine HCl (Adrenalin) Confirm Administered Dose 1 mg .ROUTE .STK-MED ONE Stop: 11/07/18 07:34 Fentanyl (Sublimaze) Confirm Administered Dose 100 mcg .ROUTE .STK-MED ONE Stop: 11/07/18 07:06 Lidocaine HCl (Xylocaine-Mpf 1%) Confirm Administered Dose 2 mls @ as directed .ROUTE .STK-MED ONE Stop: 11/07/18 07:34 Iodine (Iodine 2% Mild Tincture) Confirm Administered Dose 30 ml .ROUTE .STK- MED ONE Stop: 11/07/18 08:30 Midazolam HCl (Versed 1 Mg/Ml) Confirm Administered Dose 2 mg .ROUTE .STK-MED ONE Stop: 11/07/18 07:07 Propofol (Diprivan 20 Ml) Confirm Administered Dose 600 mg .ROUTE .STK-MED ONE Stop: 11/07/18 07:06 Ropivacaine (Naropin 0.5%) Confirm Administered Dose 30 ml .ROUTE .STK-MED ONE Stop: 11/07/18 07:34 Tranexamic Acid (Cyklokapron) Confirm Administered Dose 1,000 mg .ROUTE .STK- MED ONE Stop: 11/07/18 08:30 Vancomycin HCl (Vancomycin) Confirm Administered Dose 1 gm .ROUTE .STK-MED ONE Stop: 11/07/18 08:30
[2018-11-07] MEDS ORDERED: Albuterol 0.083% 2.5 MG/3 ML Neb Soln NEB ONE (08:58)
[2018-11-07] MEDS ORDERED: Albuterol 0.083% 2.5 MG/3 ML Neb Soln ONE (09:09)
[2018-11-07] MEDS ORDERED: fentaNYL 100 MCG/2 ML SDV ONE (10:24)
[2018-11-07] MEDS ORDERED: Midazolam 1 MG/ML 2 ML SDV ONE (10:41)
[2018-11-07] MEDS ORDERED: Naloxone 0.4 MG/ML SDV IVPUSH PRN (11:00)
[2018-11-07] MEDS ORDERED: Magnesium Hydroxide 400 MG/5 ML Susp 30 ML Cup PO PRN (11:00)
[2018-11-07] MEDS ORDERED: Morphine 2 MG/ML Syringe IVPUSH PRN (11:00)
[2018-11-07] MEDS ORDERED: Ondansetron 4 MG/2 ML SDV IVPUSH PRN (11:00)
[2018-11-07] MEDS ORDERED: Sennosides 8.6 MG Tab PO PRN (11:00)
[2018-11-07] MEDS ORDERED: Bisacodyl 5 MG Tab PO PRN (11:00)
[2018-11-07] MEDS ORDERED: Lactated Ringers 1,000 ML ONE (11:04)
[2018-11-07] MEDS ORDERED: Phenylephrine/Normal Saline 100 MCG/ML 10 ML Syringe ONE (11:04)
[2018-11-07] MEDS ORDERED: Ketorolac 30 MG/ML SDV ONE (11:05)
[2018-11-07] MEDS ORDERED: Ketamine 500 mg/10 ML MDV ONE (11:05)
[2018-11-07] MEDS ORDERED: Ondansetron 4 MG/2 ML SDV ONE (11:15)
[2018-11-07] MEDS: Morphine 8 MG, EPINEPHrine 0.3 MG, Cefuroxime 750 MG, Ketorolac 30 MG, Sodium Chloride ... ONE ×10 (11:40→19:56)
[2018-11-07] MEDS ORDERED: fentaNYL 100 MCG/2 ML SDV IVPUSH PRN (12:22)
[2018-11-07] MEDS ORDERED: diphenhydrAMINE 50 MG/ML SDV IVPUSH PRN (12:22)
--- NOTE | 2018-11-07 12:22 | PCM.POSTAN ---
POST ANESTHESIA ASSESSMENT - MENTAL STATUS Mental Status: Alert, Oriented - VITAL SIGNS Vital Signs: Last Vital Signs Temp 37.6 C 11/07/18 08:15 Pulse 86 11/07/18 08:15 Resp 16 11/07/18 08:15 BP 154/86 H 11/07/18 08:15 Pulse Ox 98 11/07/18 09:12 - RESPIRATORY Respiratory Status: Respiratory Rate WNL, Airway Patent, Supplemental Oxygen - CARDIOVASCULAR CV Status: Pulse Rate WNL, Blood Pressure Stable - GASTROINTESTINAL GI Status: No Symptoms - PAIN Pain Score: 0 - POST OP HYDRATION Hydration Status: Adequate & Stable
--- NOTE | 2018-11-07 12:48 | PCM.SN ---
- Free Text/Narrative Note: Right selective femoral nerve block at the adductor canal for post-procedure pain control Time Out: 1224 Start: 1224 End: 1232 Chart reviewed. Consent signed. Questions answered. Appropriate monitors applied. Time out performed. Right mid-shaft femur evaluated with ultrasound. Scanning medially femur, I was able to identify the femoral artery in the adductor canal. The saphenous nerve was lateral to the artery. The skin was prepped lateral to the ultrasound probe with chlorahexadine. The 21ga 4 insulated block needle was inserted under direct ultrasound guidance into the adductor canal. 20mL of 0.5% ropivacaine with 1:200,000 epinephrine was injected cirmcumferentially about the nerve with intermittent negative aspiration every 5mL. Patient tolerated the procedure well. No complications noted. See pictures on progress note and vital signs on nurses notes. Block completed postoperatively. Aminah Hodgson CRNA
--- NOTE | 2018-11-07 13:02 | CR ---
Right knee: AP and lateral views of the right knee were obtained. Comparison: Previous right knee study of 06/29/18. Knee prosthesis is noted. Components are aligned. Underlying bony structures are intact. Soft tissue air is noted from the surgical procedure. Impression: 1. Satisfactory postoperative radiographic appearance of recently placed right knee prosthesis. Diagnostic code #2
[2018-11-07] MEDS: ceFAZolin 2 GM in Premix Bag 1 BAG IV SCH ×2 (15:02→21:42)
[2018-11-07] MEDS: Ketorolac 15 MG/ML SDV IVPUSH PRN (15:07)
[2018-11-07] MEDS ORDERED: Sodium Chloride 0.9% 1,000 ML IV ONE (15:29)
[2018-11-07] MEDS ORDERED: Scopolamine 1.5 MG Transdermal Patch TRDERM ONE (15:45)
[2018-11-07] MEDS: Acetaminophen/oxyCODONE 325-5 MG Tab PO PRN ×2 (17:27→21:44)
[2018-11-07] MEDS: Famotidine 20 MG Tab PO SCH (20:03)
[2018-11-07] MEDS: Pantoprazole 40 MG Tab.CR PO SCH (20:03)
[2018-11-07] MEDS: Docusate Sodium 100 MG Cap PO SCH (20:03)
[2018-11-07] MEDS: Cyclobenzaprine 10 MG Tab PO PRN (20:09)
[2018-11-08] MEDS: Ketorolac 15 MG/ML SDV IVPUSH PRN ×2 (00:18→07:58)
[2018-11-08] MEDS: Acetaminophen/oxyCODONE 325-5 MG Tab PO PRN ×3 (04:17→12:47)
[2018-11-08] MEDS: ceFAZolin 2 GM in Premix Bag 1 BAG IV SCH (05:36)
[2018-11-08] MEDS ORDERED: Levothyroxine 50 MCG Tab PO SCH (06:00)
--- NOTE | 2018-11-08 07:13 | PCM.CONS ---
H&P History of Present Illness - General Date of Service: 11/08/18 Admit Problem/Dx: Admission Diagnosis/Problem Admission Diagnosis/Problem Osteoarthritis of knee Source of Information: Patient, Old Records, Provider, RN Notes Reviewed History Limitations: Reports: Physical Impairment - History of Present Illness Initial Comments - Free Text/Narative: This is a 53 yo white female with past medical hx/o HTN, Hypothyroidism, GERD, IBS, Hemorrhoids, Eczema, Insomnia, Depression, ADRIANNA and Morbid Obesity who recently underwent RTKA. She is doing relatively well POD#1. Her pain however is not fully controlled controlled. She rates her pain at 6/10 and did not sleep well last night. She denies any other acute issues. His Hgb is stable at 11.1. The hospitalist services were consulted for post operative care. Right Knee Pain Score (Numeric/FACES): 6 - Related Data Allergies/Adverse Reactions: Allergies Allergy/AdvReac Type Severity Reaction Status Date / Time Sulfa (Sulfonamide AdvReac Nausea and Verified 11/07/18 13:46 Antibiotics) Vomiting preservatives in anesthetics Allergy Hives Uncoded 11/04/18 13:34 Home Medications: Home Meds Ranitidine [Zantac] 150 mg PO BID 05/27/14 [History] Citalopram Hydrobromide [Celexa] 40 mg PO DAILY 07/07/16 [History] Lisinopril 10 mg PO DAILY 07/07/16 [History] Pantoprazole Sodium 40 mg PO BID 07/07/16 [History] atorvaSTATin Calcium [Atorvastatin Calcium] 10 mg PO DAILY 07/07/16 [History] Levothyroxine [Synthroid] 50 mcg PO DAILY 11/04/18 [History] Metoprolol Succinate 25 mg PO DAILY 11/04/18 [History] Ondansetron HCl [Zofran] 4 mg PO DAILY 11/04/18 [History] metFORMIN HCl [Metformin HCl ER] 500 mg PO DAILY 11/04/18 [History] traMADol HCl [Tramadol HCl] 50 mg PO Q6H PRN 11/04/18 [History] Bisacodyl [Dulcolax] 5 mg PO DAILY PRN tablet 11/08/18 [Rx] Cyclobenzaprine [Flexeril] 5 mg PO TID PRN #30 tablet 11/08/18 [Rx] Docusate Sodium [Colace] 100 mg PO BID cap 11/08/18 [Rx] Magnesium Hydroxide [Milk of Magnesia] 30 ml PO BID PRN cup 11/08/18 [Rx] Remove Patch 1 ea TRDERM Q72H each 11/08/18 [Rx] Rivaroxaban [Xarelto] 10 mg PO DAILY #30 tablet 11/08/18 [Rx] Sennosides [Senna] 8.6 mg PO BID PRN tablet 11/08/18 [Rx] oxyCODONE 5 - 10 mg PO Q4H PRN #60 tab 11/08/18 [Rx] Past Medical History Cardiovascular History: Reports: Hypertension, Other (See Below) Other Cardiovascular History: varicose veins Respiratory History: Reports: Asthma, Sleep Apnea Gastrointestinal History: Reports: GERD, Hemorrhoids, Irritable Bowel Syndrome, Other (See Below) Other Gastrointestinal History: adenamatous colon polyp, magligant neoplasm of GI tract, diverticultis, abdominal pain, gall stones Genitourinary History: Reports: Other (See Below) Other Genitourinary History: dysuria 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: Musculoskeletal History: Reports: Back Pain, Chronic, Other (See Below) Other Musculoskeletal History: L foot pain Neurological History: Reports: None Psychiatric History: Reports: Depression, Other (See Below) Other Psychiatric History: insomnia Endocrine/Metabolic History: Reports: Hypothyroidism, Obesity/BMI 30+ Hematologic History: Reports: Other (See Below) Other Hematologic History: leuokpenia Immunologic History: Reports: None Oncologic (Cancer) History: Reports: None Dermatologic History: Reports: Eczema - Past Surgical History Head Surgeries/Procedures: Reports: None HEENT Surgical History: Reports: Oral Surgery Respiratory Surgical History: Reports: None GI Surgical History: Reports: Appendectomy, Colonoscopy, EGD Female Surgical History: Reports: Section, Hysterectomy Neurological Surgical History: Reports: None Musculoskeletal Surgical History: Reports: Carpal Tunnel Other Musculoskeletal Surgeries/Procedures:: Lower lumbar fusion. Social & Family History - Family History Family Medical History: Noncontributory - Tobacco Use Smoking Status *Q: Never Smoker Second Hand Smoke Exposure: No - Caffeine Use Caffeine Use: Reports: Coffee Other Caffeine Use: 2-3 cups/day - Recreational Drug Use Recreational Drug Use: No - Living Situation & Occupation Living situation: Reports: Occupation: Employed H&P Review of Systems - Review of Systems: Review Of Systems: See Below General: Denies: Fever, Chills, Malaise, Weakness, Fatigue HEENT: Reports: No Symptoms Pulmonary: Denies: Shortness of Breath Cardiovascular: Denies: Chest Pain, Dyspnea on Exertion, Lightheadedness Gastrointestinal: Denies: Abdominal Pain, Nausea, Vomiting Genitourinary: Reports: No Symptoms Musculoskeletal: Reports: Leg Pain Psychiatric: Denies: Confusion, Depression, Anxiety, Suicidal Ideation Neurological: Reports: Difficulty Walking, Gait Disturbance. Denies: Confusion , Weakness Hematologic/Lymphatic: Reports: No Symptoms Immunologic: Reports: No Symptoms Exam - Exam Exam: See Below - Vital Signs Vital Signs: Last Vital Signs Temp 37.1 C 11/08/18 03:56 Pulse 84 11/08/18 03:56 Resp 20 11/08/18 03:56 BP 103/65 11/08/18 03:56 Pulse Ox 93 L 11/08/18 03:56 Weight: 114.124 kg - Exam General: Alert, Oriented, Cooperative, Other (Morbidly Obese) HEENT: Conjunctiva Clear, EACs Clear, EOMI, Hearing Intact, Mucosa Moist & [place] , Nares Patent, Normal Nasal Septum, Posterior Pharynx Clear, Pupils Equal, Pupils Reactive Neck: Supple, Trachea Midline Lungs: Normal Respiratory Effort, Decreased Breath Sounds Cardiovascular: Regular Rate, Regular Rhythm GI/Abdominal Exam: Normal Bowel Sounds, Soft, Non-Tender, No Organomegaly, No Distention, No Abnormal Bruit, Other (Obese) (Female) Exam: Deferred Rectal (Female) Exam: Deferred Back Exam: Normal Inspection, Decreased Range of Motion Extremities: Normal Inspection, Non-Tender, No Pedal Edema, Normal Capillary Refill, Limited Range of Motion Peripheral Pulses: 2+: Dorsalis Pedis (L), Dorsalis Pedis (R) Skin: Warm, Dry, Intact Skin Alteration Location (Drawings Not To Scale): 1 - dressed, covered and wrapped with polar care Neuro Extensive - Mental Status: Oriented x3, Normal Cognition, Memory Intact Neuro Extensive - Motor, Sensory, Reflexes: CN II-XII Intact (limited but grossly intact), Abnormal Gait DTR: 2+: Achilles (L), Achilles (R) Psychiatric: Alert, Normal Affect, Normal Mood - Patient Data Lab Results Last 24 hrs: Laboratory Results - last 24 hr 11/07/18 11/08/18 11/08/18 Range/Units 09:04 04:20 04:20 WBC 5.18 (3.98-10.04) K/mm3 RBC 4.22 (3.98-5.22) M/mm3 Hgb 11.1 L (11.2-15.7) gm/dl Hct 34.9 (34.1-44.9) % MCV 82.7 (79.4-94.8) fl MCH 26.3 (25.6-32.2) pg MCHC 31.8 L (32.2-35.5) g/dl RDW Std Deviation 45.1 (36.4-46.3) fL Plt Count 211 (182-369) K/mm3 MPV 10.6 (9.4-12.3) fl Sodium 141 (136-145) mEq/L Potassium 4.1 (3.5-5.1) mEq/L Chloride 105 (98-107) mEq/L Carbon Dioxide 26 (21-32) mEq/L Anion Gap 14.1 (5-15) BUN 13 (7-18) mg/dL Creatinine 0.9 (0.55-1.02) mg/dL Est Cr Clr Drug Dosing 60.99 mL/min Estimated GFR (MDRD) > 60 (>60) mL/min BUN/Creatinine Ratio 14.4 (14-18) Glucose 102 (74-106) mg/dL POC Glucose 89 (70-105) mg/dL Calcium 8.6 (8.5-10.1) mg/dL Total Bilirubin 0.5 (0.2-1.0) mg/dL AST 133 H (15-37) U/L ALT 206 H (14-59) U/L Alkaline Phosphatase 121 H (46-116) U/L Total Protein 6.4 (6.4-8.2) g/dl Albumin 3.1 L (3.4-5.0) g/dl Globulin 3.3 gm/dL Albumin/Globulin Ratio 0.9 L (1-2) Result Diagrams: 11/08/18 04:20 11/08/18 04:20 Consult PN Assessment/Plan POD#: 1 Procedures: Procedures BONE IMAGING (3D) (03/23/18) BONE IMAGING WHOLE BODY (03/23/18) CONTROL OF NOSEBLEED (07/24/16) CT ABD & PELV W/CONTRAST (07/07/16) CT HEAD/BRAIN W/O DYE (05/27/14) DIAGNOSTIC COLONOSCOPY (07/08/16) EGD BIOPSY SINGLE/MULTIPLE (07/08/16) EMERGENCY DEPT VISIT (06/29/18) IMMUNIZATION ADMIN (05/27/14) LAPARO CHOLECYSTECTOMY/GRAPH (09/02/16) MRI ABDOMEN W/O DYE (09/10/16) MRI JNT OF LWR EXTRE W/O DYE (08/02/17) MRI LUMBAR SPINE W/O DYE (01/21/18) POLYSOM 6/>YRS CPAP 4/> PARM (06/10/16) RPR S/N/AX/GEN/TRNK2.6-7.5CM (05/27/14) TDAP VACCINE 7 YRS/> IM (05/27/14) THER/PROPH/DIAG INJ SC/IM (06/29/18) TISSUE EXAM BY PATHOLOGIST (09/02/16) TISSUE EXAM BY PATHOLOGIST (07/08/16) US EXAM ABDOM COMPLETE (07/17/16) X-RAY BILE DUCTS/PANCREAS (09/02/16) X-RAY EXAM KNEE 4 OR MORE (06/29/18) X-RAY EXAM L-S SPINE 2/3 VWS (07/22/18) X-RAY EXAM NECK SPINE 4/5VWS (01/06/18) Problem List Initiated/Reviewed/Updated: Yes Plan: Assessment: Acute: RTKA - POD #1 - Defer Management to Primary Team Post-Operative Care - Had a brief episode of hypotension after surgery - Patient is clinically and hemodynamically stable - Hgb is at 11.1 - She is drinking and eating well Transaminitis - AST/ALT:133/203 - Alks of 121 with GGT level of 689 - Patient she was taking a lot of Tylenol prior to surgery - She is on Statin but denies hx/o IVDU or Hep C infection - Was hypotensive post surgery - She is status post cholecystectomy - Hold statin and avoid Tylenol - Consider outpatient abdominal U/S if no improvement of liver enzymes to r/ o biliary disease/abnormality - Discussed case with her PCP if patient goes home today Chronic: HTN, Hypothyroidism, GERD, IBS, Hemorrhoids, Eczema, Insomnia, Depression, ADRIANNA on CPAP and Morbid Obesity Plan: From the hospitalist standpoint, patient is doing relatively well. We recommend the following as above, continue current treatment, and resume home medications. Any changes or further recommendations will be based on the patient 's course. Thank you for the opportunity to participate in the management of this patient. We will follow her along with you. Requesting Provider: Dr. Jeff Date Consult Requested: 11/07/18 Reason for Consult: Post Operative Care Patient History Reviewed: Yes Admission H&P Reviewed: Yes Notified Requestor: Yes Time Spent (in minutes): 20
[2018-11-08 07:55] VITALS: BP 112/76; PULSE 93
[2018-11-08] MEDS: Docusate Sodium 100 MG Cap PO SCH (08:02)
[2018-11-08] MEDS: Famotidine 20 MG Tab PO SCH (08:02)
[2018-11-08] MEDS: Pantoprazole 40 MG Tab.CR PO SCH (08:03)
--- NOTE | 2018-11-08 08:18 | PCM48HPAN ---
Post Anesthesia Note - EVALUATION WITHIN 48HRS OF ANESTHETIC Vital Signs in Normal Range: Yes Patient Participated in Evaluation: Yes Respiratory Function Stable: Yes Airway Patent: Yes Cardiovascular Function Stable: Yes Hydration Status Stable: Yes Pain Control Satisfactory: Yes Nausea and Vomiting Control Satisfactory: Yes (little nausea yesterday, better today) Mental Status Recovered: Yes Vital Signs: Last Vital Signs Temp 99.1 F 11/08/18 07:53 Pulse 93 11/08/18 08:02 Resp 16 11/08/18 07:53 BP 112/76 11/08/18 08:02 Pulse Ox 94 L 11/08/18 07:53
--- NOTE | 2018-11-08 08:33 | PCM.SURGPN ---
- General Info Date of Service: 11/08/18 POD#: 1 Functional Status: Reports: Tolerating Diet, Ambulating, Urinating, Incentive Spirometry, Other (The pt states her pain was controlled over the night.) - Patient Data Vitals - Most Recent: Last Vital Signs Temp 99.1 F 11/08/18 07:53 Pulse 93 11/08/18 08:02 Resp 16 11/08/18 07:53 BP 112/76 11/08/18 08:02 Pulse Ox 94 L 11/08/18 07:53 Weight - Most Recent: 251 lb 9.6 oz I&O - Last 24 Hours: Intake & Output 11/07/18 11/08/18 11/08/18 22:59 06:59 14:59 Intake Total 2780 1700 Output Total 800 1450 Balance 1980 250 Lab Results Last 24 Hrs: Laboratory Results - last 24 hr 11/07/18 11/08/18 11/08/18 Range/Units 09:04 04:20 04:20 WBC 5.18 (3.98-10.04) K/mm3 RBC 4.22 (3.98-5.22) M/mm3 Hgb 11.1 L (11.2-15.7) gm/dl Hct 34.9 (34.1-44.9) % MCV 82.7 (79.4-94.8) fl MCH 26.3 (25.6-32.2) pg MCHC 31.8 L (32.2-35.5) g/dl RDW Std Deviation 45.1 (36.4-46.3) fL Plt Count 211 (182-369) K/mm3 MPV 10.6 (9.4-12.3) fl Sodium 141 (136-145) mEq/L Potassium 4.1 (3.5-5.1) mEq/L Chloride 105 (98-107) mEq/L Carbon Dioxide 26 (21-32) mEq/L Anion Gap 14.1 (5-15) BUN 13 (7-18) mg/dL Creatinine 0.9 (0.55-1.02) mg/dL Est Cr Clr Drug Dosing 60.99 mL/min Estimated GFR (MDRD) > 60 (>60) mL/min BUN/Creatinine Ratio 14.4 (14-18) Glucose 102 (74-106) mg/dL POC Glucose 89 (70-105) mg/dL Calcium 8.6 (8.5-10.1) mg/dL Total Bilirubin 0.5 (0.2-1.0) mg/dL GGT (5-55) U/L AST 133 H (15-37) U/L ALT 206 H (14-59) U/L Alkaline Phosphatase 121 H (46-116) U/L Total Protein 6.4 (6.4-8.2) g/dl Albumin 3.1 L (3.4-5.0) g/dl Globulin 3.3 gm/dL Albumin/Globulin Ratio 0.9 L (1-2) 11/08/18 Range/Units 04:20 WBC (3.98-10.04) K/mm3 RBC (3.98-5.22) M/mm3 Hgb (11.2-15.7) gm/dl Hct (34.1-44.9) % MCV (79.4-94.8) fl MCH (25.6-32.2) pg MCHC (32.2-35.5) g/dl RDW Std Deviation (36.4-46.3) fL Plt Count (182-369) K/mm3 MPV (9.4-12.3) fl Sodium (136-145) mEq/L Potassium (3.5-5.1) mEq/L Chloride (98-107) mEq/L Carbon Dioxide (21-32) mEq/L Anion Gap (5-15) BUN (7-18) mg/dL Creatinine (0.55-1.02) mg/dL Est Cr Clr Drug Dosing mL/min Estimated GFR (MDRD) (>60) mL/min BUN/Creatinine Ratio (14-18) Glucose (74-106) mg/dL POC Glucose (70-105) mg/dL Calcium (8.5-10.1) mg/dL Total Bilirubin (0.2-1.0) mg/dL GGT 689 H (5-55) U/L AST (15-37) U/L ALT (14-59) U/L Alkaline Phosphatase (46-116) U/L Total Protein (6.4-8.2) g/dl Albumin (3.4-5.0) g/dl Globulin gm/dL Albumin/Globulin Ratio (1-2) Med Orders - Current: Current Medications Bisacodyl (Dulcolax) 5 mg PO DAILY PRN PRN Reason: Constipation Citalopram Hydrobromide (Celexa) 40 mg PO DAILY [facility] Last Admin: 11/08/18 08:02 Dose: 40 mg Cyclobenzaprine HCl (Flexeril) 10 mg PO BID PRN PRN Reason: Spasms Last Admin: 11/07/18 20:09 Dose: 10 mg Docusate Sodium (Colace) 100 mg PO BID [facility] Last Admin: 11/08/18 08:02 Dose: 100 mg Famotidine (Pepcid) 20 mg PO BID [facility] Last Admin: 11/08/18 08:02 Dose: 20 mg Levothyroxine Sodium (Synthroid) 50 mcg PO ACBREAKFAST [facility] Last Admin: 11/08/18 05:36 Dose: 50 mcg Lisinopril (Prinivil) 10 mg PO DAILY [facility] Last Admin: 11/08/18 08:02 Dose: 10 mg Magnesium Hydroxide (Milk Of Magnesia) 30 ml PO BID PRN PRN Reason: Constipation Metoprolol Succinate (Toprol Xl) 25 mg PO DAILY [facility] Last Admin: 11/08/18 08:02 Dose: 25 mg Miscellaneous Information (Remove Patch) 1 ea TRDERM Q72H [facility] Morphine Sulfate (Morphine) 2 mg IVPUSH Q2H PRN PRN Reason: Breakthrough Pain Naloxone HCl (Narcan) 0.1 mg IVPUSH Q5M PRN PRN Reason: Oversedation Ondansetron HCl (Zofran) 4 mg IVPUSH Q6H PRN PRN Reason: Nausea/Vomiting Last Admin: 11/07/18 15:08 Dose: 4 mg Oxycodone/Acetaminophen (Percocet 325-5 Mg) 1 - 2 tab PO Q4H PRN PRN Reason: Pain Last Admin: 11/08/18 08:03 Dose: 2 tab Pantoprazole Sodium (Protonix) 40 mg PO BID [facility] Last Admin: 11/08/18 08:03 Dose: 40 mg Rivaroxaban (Xarelto) 10 mg PO DAILY [facility] Last Admin: 11/08/18 08:02 Dose: 10 mg Senna (Senna) 8.6 mg PO BID PRN PRN Reason: Constipation Simvastatin (Zocor) 10 mg PO DAILY [facility] Discontinued Medications Acetaminophen (Tylenol) 975 mg PO ONETIME [facility] Stop: 11/07/18 13:00 Last Admin: 11/07/18 08:27 Dose: 975 mg Albuterol (Proventil Neb Soln) 2.5 mg NEB ONETIME ONE Stop: 11/07/18 08:59 Last Admin: 11/07/18 09:11 Dose: 2.5 mg Albuterol (Proventil Neb Soln) Confirm Administered Dose 2.5 mg .ROUTE .STK-MED ONE Stop: 11/07/18 09:10 Last Admin: 11/07/18 16:00 Dose: Not Given Bupivacaine HCl (Sensorcaine-Mpf 0.25%) Confirm Administered Dose 30 ml .ROUTE .STK-MED ONE Stop: 11/07/18 08:30 Last Admin: 11/07/18 11:41 Dose: 30 ml Cefazolin Sodium (Ancef) Confirm Administered Dose 2 gm .ROUTE .STK-MED ONE Stop: 11/07/18 07:06 Cefazolin Sodium (Ancef) Confirm Administered Dose 2 gm .ROUTE .STK-MED ONE Stop: 11/07/18 08:30 Last Admin: 11/07/18 11:35 Dose: 2 gm Morphine Sulfate 8 mg/Epinephrine HCl 0.3 mg/Cefuroxime Sodium 750 mg/Ketorolac Tromethamine 30 mg/Sodium Chloride 27.9 ml 0 mg .XX ONETIME ONE Stop: 11/07/18 10:01 Last Admin: 11/07/18 19:56 Dose: Not Given Diphenhydramine HCl (Benadryl) 25 mg IVPUSH Q6H PRN PRN Reason: itching Stop: 11/07/18 16:00 Epinephrine HCl (Adrenalin) Confirm Administered Dose 1 mg .ROUTE .STK-MED ONE Stop: 11/07/18 07:34 Fentanyl (Sublimaze) Confirm Administered Dose 100 mcg .ROUTE .STK-MED ONE Stop: 11/07/18 07:06 Fentanyl (Sublimaze) Confirm Administered Dose 100 mcg .ROUTE .STK-MED ONE Stop: 11/07/18 10:25 Fentanyl (Sublimaze) 50 mcg IVPUSH Q5M PRN PRN Reason: pain Stop: 11/07/18 16:00 Glycopyrrolate () Confirm Administered Dose 1 mg .ROUTE .STK-MED ONE Stop: 11/07/18 11:02 Lactated Ringer's (Ringers, Lactated) 1,000 mls @ 125 mls/hr IV ASDIRECTED [facility] Stop: 11/07/18 23:00 Last Admin: 11/07/18 08:45 Dose: 125 mls/hr Cefazolin Sodium/Dextrose 2 gm (/ Premix) 50 mls @ 100 mls/hr IV Q8H [facility] Stop: 11/08/18 06:59 Last Admin: 11/08/18 05:36 Dose: 100 mls/hr Lidocaine HCl (Xylocaine-Mpf 1%) Confirm Administered Dose 2 mls @ as directed .ROUTE .STK-MED ONE Stop: 11/07/18 07:34 Lactated Ringer's (Ringers, Lactated) Confirm Administered Dose 1,000 mls @ as directed .ROUTE .STK-MED ONE Stop: 11/07/18 11:05 Sodium Chloride (Normal Saline) 1,000 mls @ 999 mls/hr IV ONETIME ONE Stop: 11/07/18 16:29 Last Admin: 11/07/18 15:45 Dose: 999 mls/hr Iodine (Iodine 2% Mild Tincture) Confirm Administered Dose 30 ml .ROUTE .STK- MED ONE Stop: 11/07/18 08:30 Last Admin: 11/07/18 11:32 Dose: 18 ml Ketamine HCl (Ketalar) Confirm Administered Dose 500 mg .ROUTE .STK-MED ONE Stop: 11/07/18 11:06 Ketorolac Tromethamine (Toradol) 15 mg IVPUSH Q6H PRN PRN Reason: Pain Last Admin: 11/08/18 07:58 Dose: 15 mg Ketorolac Tromethamine (Toradol) Confirm Administered Dose 30 mg .ROUTE .STK- MED ONE Stop: 11/07/18 11:06 Lidocaine/Sodium Bicarbonate (Buffered Lidocaine 1% In Ns 8.4%) 0.25 ml IDERM ONETIME PRN PRN Reason: Prior to IV Start Stop: 11/07/18 18:00 Midazolam HCl (Versed 1 Mg/Ml) Confirm Administered Dose 2 mg .ROUTE .STK-MED ONE Stop: 11/07/18 07:07 Midazolam HCl (Versed 1 Mg/Ml) Confirm Administered Dose 2 mg .ROUTE .STK-MED ONE Stop: 11/07/18 10:42 Ondansetron HCl (Zofran) Confirm Administered Dose 4 mg .ROUTE .STK-MED ONE Stop: 11/07/18 11:16 Oxycodone HCl (Oxycontin) 10 mg PO ONETIME [facility] Stop: 11/07/18 13:00 Last Admin: 11/07/18 08:27 Dose: 10 mg Phenylephrine HCl (Phenylephrine In Ns 100 Mcg/Ml) Confirm Administered Dose 1 mg .ROUTE .STK-MED ONE Stop: 11/07/18 11:05 Pregabalin (Lyrica) 50 mg PO ONETIME [facility] Stop: 11/07/18 13:00 Last Admin: 11/07/18 08:27 Dose: 50 mg Propofol (Diprivan 20 Ml) Confirm Administered Dose 600 mg .ROUTE .STK-MED ONE Stop: 11/07/18 07:06 Ropivacaine (Naropin 0.5%) Confirm Administered Dose 30 ml .ROUTE .STK-MED ONE Stop: 11/07/18 07:34 Scopolamine (Transderm-Scop) 1.5 mg TRDERM Q72H ONE Stop: 11/07/18 15:46 Last Admin: 11/07/18 15:45 Dose: 1.5 mg Simvastatin (Zocor) 10 mg PO DAILY [facility] Sodium Chloride (Saline Flush) 10 ml FLUSH ASDIRECTED PRN PRN Reason: Keep Vein Open Stop: 11/07/18 18:00 Tranexamic Acid (Cyklokapron) Confirm Administered Dose 1,000 mg .ROUTE .STK- MED ONE Stop: 11/07/18 08:30 Last Admin: 11/07/18 11:50 Dose: 1,000 mg Vancomycin HCl (Vancomycin) Confirm Administered Dose 1 gm .ROUTE .STK-MED ONE Stop: 11/07/18 08:30 Last Admin: 11/07/18 11:43 Dose: 1 gm - Exam Wound/Incisions: Dressing Dry and Intact General: Alert, Cooperative, No Acute Distress Lungs: Normal Respiratory Effort Extremities: Other (NVS intact for RLE. Navid's negative.) - Problem List Review Problem List Initiated/Reviewed/Updated: Yes - My Orders Last 24 Hours: Active Orders 24 hr Category Date Time Status RT Aerosol Therapy [RC] ASDIRECTED Care 11/07/18 08:58 Active Ready for Discharge [RC] PER UNIT ROUTINE Care 11/08/18 08:28 Ordered Regular Diet [DIET] Diet 11/07/18 Lunch Active Acetaminophen/oxyCODONE [Percocet 325-5 MG] Med 11/07/18 11:00 Active 1 - 2 tab PO Q4H PRN Bisacodyl [Dulcolax] Med 11/07/18 11:00 Active 5 mg PO DAILY PRN Citalopram [Celexa] Med 11/08/18 09:00 Active 40 mg PO DAILY Cyclobenzaprine [Flexeril] Med 11/07/18 11:00 Active 10 mg PO BID PRN Docusate Sodium [Colace] Med 11/07/18 21:00 Active 100 mg PO BID Famotidine [Pepcid] Med 11/07/18 21:00 Active 20 mg PO BID Levothyroxine [Synthroid] Med 11/08/18 06:00 Active 50 mcg PO ACBREAKFAST Lisinopril [Prinivil] Med 11/08/18 09:00 Active 10 mg PO DAILY Magnesium Hydroxide [Milk of Magnesia] Med 11/07/18 11:00 Active 30 ml PO BID PRN Metoprolol Succinate [Toprol XL] Med 11/08/18 09:00 Active 25 mg PO DAILY Morphine Med 11/07/18 11:00 Active 2 mg IVPUSH Q2H PRN Naloxone [Narcan] Med 11/07/18 11:00 Active 0.1 mg IVPUSH Q5M PRN Ondansetron [Zofran] Med 11/07/18 11:00 Active 4 mg IVPUSH Q6H PRN Pantoprazole [ProTONIX] Med 11/07/18 21:00 Active 40 mg PO BID Remove Patch Med 11/10/18 15:45 Active 1 ea TRDERM Q72H Rivaroxaban [Xarelto] Med 11/08/18 09:00 Active 10 mg PO DAILY Sennosides [Senna] Med 11/07/18 11:00 Active 8.6 mg PO BID PRN Simvastatin [Zocor] Med 11/11/18 09:00 Active 10 mg PO DAILY Medication Orders Bisacodyl (Dulcolax) 5 mg PO DAILY PRN PRN Reason: Constipation Citalopram Hydrobromide (Celexa) 40 mg PO DAILY [facility] Last Admin: 11/08/18 08:02 Dose: 40 mg Cyclobenzaprine HCl (Flexeril) 10 mg PO BID PRN PRN Reason: Spasms Last Admin: 11/07/18 20:09 Dose: 10 mg Docusate Sodium (Colace) 100 mg PO BID [facility] Last Admin: 11/08/18 08:02 Dose: 100 mg Admin: 11/07/18 20:03 Dose: 100 mg Famotidine (Pepcid) 20 mg PO BID [facility] Last Admin: 11/08/18 08:02 Dose: 20 mg Admin: 11/07/18 20:03 Dose: 20 mg Levothyroxine Sodium (Synthroid) 50 mcg PO ACBREAKFAST [facility] Last Admin: 11/08/18 05:36 Dose: 50 mcg Lisinopril (Prinivil) 10 mg PO DAILY [facility] Last Admin: 11/08/18 08:02 Dose: 10 mg Magnesium Hydroxide (Milk Of Magnesia) 30 ml PO BID PRN PRN Reason: Constipation Metoprolol Succinate (Toprol Xl) 25 mg PO DAILY [facility] Last Admin: 11/08/18 08:02 Dose: 25 mg Miscellaneous Information (Remove Patch) 1 ea TRDERM Q72H [facility] Morphine Sulfate (Morphine) 2 mg IVPUSH Q2H PRN PRN Reason: Breakthrough Pain Naloxone HCl (Narcan) 0.1 mg IVPUSH Q5M PRN PRN Reason: Oversedation Ondansetron HCl (Zofran) 4 mg IVPUSH Q6H PRN PRN Reason: Nausea/Vomiting Last Admin: 11/07/18 15:08 Dose: 4 mg Oxycodone/Acetaminophen (Percocet 325-5 Mg) 1 - 2 tab PO Q4H PRN PRN Reason: Pain Last Admin: 11/08/18 08:03 Dose: 2 tab Admin: 11/08/18 04:17 Dose: 2 tab Admin: 11/07/18 21:44 Dose: 2 tab Admin: 11/07/18 17:27 Dose: 2 tab Pantoprazole Sodium (Protonix) 40 mg PO BID [facility] Last Admin: 11/08/18 08:03 Dose: 40 mg Admin: 11/07/18 20:03 Dose: 40 mg Rivaroxaban (Xarelto) 10 mg PO DAILY [facility] Last Admin: 11/08/18 08:02 Dose: 10 mg Senna (Senna) 8.6 mg PO BID PRN PRN Reason: Constipation Simvastatin (Zocor) 10 mg PO DAILY [facility]ATHRYN - Assessment Assessment (Free Text/Narrative):: POD#1 - right TKA - Plan Plan (Free Text/Narrative):: 1. Hgb 11.1. 2. Xarelto 10mg PO daily (hx GERD and ulcer), frequent mobility, TEDs. 3. Discharge to home today if cleared by Hospitalist service and therapies. 4. LFTs elevated. Further orders per Hospitalist service. The pt's case was discussed with Dr. Jeff.
[2018-11-08] MEDS ORDERED: Citalopram 20 MG Tab PO SCH (09:00)
[2018-11-08] MEDS ORDERED: Lisinopril 10 MG Tab PO SCH (09:00)
[2018-11-08] MEDS ORDERED: Rivaroxaban 10 MG Tab PO SCH (09:00)
[2018-11-08] MEDS ORDERED: Metoprolol Succinate 25 MG Tab.ER PO SCH (09:00)
[2018-11-08] MEDS ORDERED: Simvastatin 10 MG Tab PO SCH (09:00)
[2018-11-08] MEDS: Cyclobenzaprine 10 MG Tab PO PRN (11:34)
--- NOTE | 2018-11-09 09:32 | PCM.DCSUM1 ---
Discharge Summary - Hospital Course Brief History: Preston is a 62 yo male who underwent right TKA with Dr. Jeff on . The procedure was completed under spinal anesthesia with MAC. The pt tolerated the procedure well and was admitted to the Medical-Surgical Unit. The pt received Ancef janay-operatively. She participated in P.T. and O.T. and progressed well. She was allowed to WBAT and used a FWW for mobility. The pt' s surgical wound was dressed with a Mepilex dressing and remained clean and dry. On POD#1, the pt was started on Xarelto 10mg PO daily for VTE prophylaxis. The pt used TEDs and SCDs also. On POD#1, the pt's hemoglobin was 11.1. Medical management was provided by the Hospitalist service and the pt 's hospital course was remarkable for elevated LFTs. The pt will follow-up with her PCP regarding lab testing. On POD#1, the pt was deemed appropriate for discharge to home. - Discharge Data Discharge Date: 11/08/18 Discharge Disposition: Home, Self-Care 01 Condition: Good - Referral to Home Health Primary Care Physician: Laurie Guo PA-C - Patient Summary/Data Consults: Consultations 11/07/18 07:06 OT Evaluation and Treatment [CONS] Routine PT Evaluation and Treatment [CONS] Routine 11/07/18 07:07 Consult to Physician [CONS] Routine - Patient Instructions Diet: Usual Diet as Tolerated Activity: Apply Ice, As Tolerated, Elevate Extremity, Full Weight Bearing Driving: Do Not Drive Showering/Bathing: May Shower Wound/Incision Care: Keep Operative Site/Wound Site Clean and Dry, Do NOT Change Dressing Notify Provider of: Fever, Increased Pain, Swelling and Redness, Drainage, Nausea and/or Vomiting Other/Special Instructions: Please get up and moving around EVERY HOUR while awake. This helps to prevent blood clots. Please use your walker and have help with mobility as needed. Take a short walk in your home every hour while awake. Please take the Xarelto blood thinner medication daily as directed. At home, please complete the exercises that you learned during the Hospital stay. Schedule for physical therapy. Use the pain medication as needed. The medication may cause drowsiness and constipation. Contact your primary care provider for instructions if you are constipated. You may use a stool softener like docusate sodium or Colace 100mg twice daily and/or a laxative like Miralax daily for constipation. Increase your water and fiber intake while you are using the pain medication. Discontinue use of the pain medication as soon as able. Please do not use other medications that may cause drowsiness (other pain medications, anxiety pills, cold medications, sleeping pills, etc) while using the prescription pain medication. Do not use alcohol while using the pain medication. Please do not use Tylenol or acetaminophen at this time due to elevated liver tests. HOLD use of the Lipitor at this time. Please follow- up with your primary care provider to monitor your liver tests. At this time, please do not use ibuprofen (Motrin, Advil) or naproxen (Aleve) for pain management as you are using the Xarelto. When the Xarelto course is completed in 4 to 6 weeks, you could use ibuprofen or naproxen for pain management (IF THIS IS ALLOWED BY OUR PRIMARY CARE PROVIDER). Wear the SAW hose during the day and you may remove these at night. Elevate the limb to decrease swelling. Place ice to the area often. Place a towel between your skin and the blue pad. Use the incentive spirometer often. Take deep breaths throughout the day. Please keep the dressing in place until follow-up. Notify the Clinic if the dressing becomes saturated. Increase your protein intake while you are healing. Please closely monitor your blood sugars and notify your primary care provider with abnormal values. Elevated blood sugars increases the risk of infection. Call the Clinic with questions or concerns - [phone]. - Discharge Plan *PRESCRIPTION DRUG MONITORING PROGRAM REVIEWED*: No *COPY OF PRESCRIPTION DRUG MONITORING REPORT IN PATIENT TOMÁS: No Prescriptions/Med Rec: Cyclobenzaprine [Flexeril] 5 mg PO TID PRN #30 tablet PRN Reason: Spasms oxyCODONE 5 - 10 mg PO Q4H PRN #60 tab PRN Reason: Pain Rivaroxaban [Xarelto] 10 mg PO DAILY #30 tablet Home Medications: Home Meds Ranitidine [Zantac] 150 mg PO BID 05/27/14 [History] Citalopram Hydrobromide [Celexa] 40 mg PO DAILY 07/07/16 [History] Lisinopril 10 mg PO DAILY 07/07/16 [History] Pantoprazole Sodium 40 mg PO BID 07/07/16 [History] atorvaSTATin Calcium [Atorvastatin Calcium] 10 mg PO DAILY 07/07/16 [History] Levothyroxine [Synthroid] 50 mcg PO DAILY 11/04/18 [History] Metoprolol Succinate 25 mg PO DAILY 11/04/18 [History] Ondansetron HCl [Zofran] 4 mg PO DAILY 11/04/18 [History] metFORMIN HCl [Metformin HCl ER] 500 mg PO DAILY 11/04/18 [History] traMADol HCl [Tramadol HCl] 50 mg PO Q6H PRN 11/04/18 [History] Bisacodyl [Dulcolax] 5 mg PO DAILY PRN tablet 11/08/18 [Rx] Cyclobenzaprine [Flexeril] 5 mg PO TID PRN #30 tablet 11/08/18 [Rx] Docusate Sodium [Colace] 100 mg PO BID cap 11/08/18 [Rx] Magnesium Hydroxide [Milk of Magnesia] 30 ml PO BID PRN cup 11/08/18 [Rx] Remove Patch 1 ea TRDERM Q72H each 11/08/18 [Rx] Rivaroxaban [Xarelto] 10 mg PO DAILY #30 tablet 11/08/18 [Rx] Sennosides [Senna] 8.6 mg PO BID PRN tablet 11/08/18 [Rx] oxyCODONE 5 - 10 mg PO Q4H PRN #60 tab 11/08/18 [Rx] Patient Handouts: Total Knee Replacement, [id number] Referrals: Emma Santoro PA-C [Ordering Only Provider] - 11/14/18 2:00 pm Abi Coy PA-C [Physician Education Faculty Member] - (Please follow up with JANAY Whiteside on November 15 at 9:45, November 22 at 10:45, & December 27 at 10:45.) - Discharge Summary/Plan Comment DC Time >30 min.: No - Patient Data Vitals - Most Recent: Last Vital Signs Temp 99.1 F 11/08/18 07:53 Pulse 93 11/08/18 08:02 Resp 16 11/08/18 07:53 BP 112/76 11/08/18 08:02 Pulse Ox 94 L 11/08/18 07:53 Weight - Most Recent: 251 lb 9.6 oz Med Orders - Current: Current Medications Discontinued Medications Acetaminophen (Tylenol) 975 mg PO ONETIME [facility] Stop: 11/07/18 13:00 Last Admin: 11/07/18 08:27 Dose: 975 mg Albuterol (Proventil Neb Soln) 2.5 mg NEB ONETIME ONE Stop: 11/07/18 08:59 Last Admin: 11/07/18 09:11 Dose: 2.5 mg Albuterol (Proventil Neb Soln) Confirm Administered Dose 2.5 mg .ROUTE .STK-MED ONE Stop: 11/07/18 09:10 Last Admin: 11/07/18 16:00 Dose: Not Given Bisacodyl (Dulcolax) 5 mg PO DAILY PRN PRN Reason: Constipation Bupivacaine HCl (Sensorcaine-Mpf 0.25%) Confirm Administered Dose 30 ml .ROUTE .STK-MED ONE Stop: 11/07/18 08:30 Last Admin: 11/07/18 11:41 Dose: 30 ml Cefazolin Sodium (Ancef) Confirm Administered Dose 2 gm .ROUTE .STK-MED ONE Stop: 11/07/18 07:06 Cefazolin Sodium (Ancef) Confirm Administered Dose 2 gm .ROUTE .STK-MED ONE Stop: 11/07/18 08:30 Last Admin: 11/07/18 11:35 Dose: 2 gm Citalopram Hydrobromide (Celexa) 40 mg PO DAILY [facility] Last Admin: 11/08/18 08:02 Dose: 40 mg Morphine Sulfate 8 mg/Epinephrine HCl 0.3 mg/Cefuroxime Sodium 750 mg/Ketorolac Tromethamine 30 mg/Sodium Chloride 27.9 ml 0 mg .XX ONETIME ONE Stop: 11/07/18 10:01 Last Admin: 11/07/18 19:56 Dose: Not Given Cyclobenzaprine HCl (Flexeril) 10 mg PO BID PRN PRN Reason: Spasms Last Admin: 11/08/18 11:34 Dose: 10 mg Diphenhydramine HCl (Benadryl) 25 mg IVPUSH Q6H PRN PRN Reason: itching Stop: 11/07/18 16:00 Docusate Sodium (Colace) 100 mg PO BID [facility] Last Admin: 11/08/18 08:02 Dose: 100 mg Epinephrine HCl (Adrenalin) Confirm Administered Dose 1 mg .ROUTE .STK-MED ONE Stop: 11/07/18 07:34 Famotidine (Pepcid) 20 mg PO BID [facility] Last Admin: 11/08/18 08:02 Dose: 20 mg Fentanyl (Sublimaze) Confirm Administered Dose 100 mcg .ROUTE .STK-MED ONE Stop: 11/07/18 07:06 Fentanyl (Sublimaze) Confirm Administered Dose 100 mcg .ROUTE .STK-MED ONE Stop: 11/07/18 10:25 Fentanyl (Sublimaze) 50 mcg IVPUSH Q5M PRN PRN Reason: pain Stop: 11/07/18 16:00 Glycopyrrolate () Confirm Administered Dose 1 mg .ROUTE .STK-MED ONE Stop: 11/07/18 11:02 Lactated Ringer's (Ringers, Lactated) 1,000 mls @ 125 mls/hr IV ASDIRECTED [facility] Stop: 11/07/18 23:00 Last Admin: 11/07/18 08:45 Dose: 125 mls/hr Cefazolin Sodium/Dextrose 2 gm (/ Premix) 50 mls @ 100 mls/hr IV Q8H [facility] Stop: 11/08/18 06:59 Last Admin: 11/08/18 05:36 Dose: 100 mls/hr Lidocaine HCl (Xylocaine-Mpf 1%) Confirm Administered Dose 2 mls @ as directed .ROUTE .STK-MED ONE Stop: 11/07/18 07:34 Lactated Ringer's (Ringers, Lactated) Confirm Administered Dose 1,000 mls @ as directed .ROUTE .STK-MED ONE Stop: 11/07/18 11:05 Sodium Chloride (Normal Saline) 1,000 mls @ 999 mls/hr IV ONETIME ONE Stop: 11/07/18 16:29 Last Admin: 11/07/18 15:45 Dose: 999 mls/hr Iodine (Iodine 2% Mild Tincture) Confirm Administered Dose 30 ml .ROUTE .STK- MED ONE Stop: 11/07/18 08:30 Last Admin: 11/07/18 11:32 Dose: 18 ml Ketamine HCl (Ketalar) Confirm Administered Dose 500 mg .ROUTE .STK-MED ONE Stop: 11/07/18 11:06 Ketorolac Tromethamine (Toradol) 15 mg IVPUSH Q6H PRN PRN Reason: Pain Last Admin: 11/08/18 07:58 Dose: 15 mg Ketorolac Tromethamine (Toradol) Confirm Administered Dose 30 mg .ROUTE .STK- MED ONE Stop: 11/07/18 11:06 Levothyroxine Sodium (Synthroid) 50 mcg PO ACBREAKFAST [facility] Last Admin: 11/08/18 05:36 Dose: 50 mcg Lidocaine/Sodium Bicarbonate (Buffered Lidocaine 1% In Ns 8.4%) 0.25 ml IDERM ONETIME PRN PRN Reason: Prior to IV Start Stop: 11/07/18 18:00 Lisinopril (Prinivil) 10 mg PO DAILY [facility] Last Admin: 11/08/18 08:02 Dose: 10 mg Magnesium Hydroxide (Milk Of Magnesia) 30 ml PO BID PRN PRN Reason: Constipation Metoprolol Succinate (Toprol Xl) 25 mg PO DAILY [facility] Last Admin: 11/08/18 08:02 Dose: 25 mg Midazolam HCl (Versed 1 Mg/Ml) Confirm Administered Dose 2 mg .ROUTE .STK-MED ONE Stop: 11/07/18 07:07 Midazolam HCl (Versed 1 Mg/Ml) Confirm Administered Dose 2 mg .ROUTE .STK-MED ONE Stop: 11/07/18 10:42 Miscellaneous Information (Remove Patch) 1 ea TRDERM Q72H [facility] Morphine Sulfate (Morphine) 2 mg IVPUSH Q2H PRN PRN Reason: Breakthrough Pain Naloxone HCl (Narcan) 0.1 mg IVPUSH Q5M PRN PRN Reason: Oversedation Ondansetron HCl (Zofran) 4 mg IVPUSH Q6H PRN PRN Reason: Nausea/Vomiting Last Admin: 11/07/18 15:08 Dose: 4 mg Ondansetron HCl (Zofran) Confirm Administered Dose 4 mg .ROUTE .STK-MED ONE Stop: 11/07/18 11:16 Oxycodone HCl (Oxycontin) 10 mg PO ONETIME [facility] Stop: 11/07/18 13:00 Last Admin: 11/07/18 08:27 Dose: 10 mg Oxycodone/Acetaminophen (Percocet 325-5 Mg) 1 - 2 tab PO Q4H PRN PRN Reason: Pain Last Admin: 11/08/18 12:47 Dose: 2 tab Pantoprazole Sodium (Protonix) 40 mg PO BID [facility] Last Admin: 11/08/18 08:03 Dose: 40 mg Phenylephrine HCl (Phenylephrine In Ns 100 Mcg/Ml) Confirm Administered Dose 1 mg .ROUTE .STK-MED ONE Stop: 11/07/18 11:05 Pregabalin (Lyrica) 50 mg PO ONETIME [facility] Stop: 11/07/18 13:00 Last Admin: 11/07/18 08:27 Dose: 50 mg Propofol (Diprivan 20 Ml) Confirm Administered Dose 600 mg .ROUTE .STK-MED ONE Stop: 11/07/18 07:06 Rivaroxaban (Xarelto) 10 mg PO DAILY [facility] Last Admin: 11/08/18 08:02 Dose: 10 mg Ropivacaine (Naropin 0.5%) Confirm Administered Dose 30 ml .ROUTE .STK-MED ONE Stop: 11/07/18 07:34 Scopolamine (Transderm-Scop) 1.5 mg TRDERM Q72H ONE Stop: 11/07/18 15:46 Last Admin: 11/07/18 15:45 Dose: 1.5 mg Senna (Senna) 8.6 mg PO BID PRN PRN Reason: Constipation Simvastatin (Zocor) 10 mg PO DAILY KATHRYN Simvastatin (Zocor) 10 mg PO DAILY [facility] Sodium Chloride (Saline Flush) 10 ml FLUSH ASDIRECTED PRN PRN Reason: Keep Vein Open Stop: 11/07/18 18:00 Tranexamic Acid (Cyklokapron) Confirm Administered Dose 1,000 mg .ROUTE .STK- MED ONE Stop: 11/07/18 08:30 Last Admin: 11/07/18 11:50 Dose: 1,000 mg Vancomycin HCl (Vancomycin) Confirm Administered Dose 1 gm .ROUTE .STK-MED ONE Stop: 11/07/18 08:30 Last Admin: 11/07/18 11:43 Dose: 1 gm
[2018-11-11] MEDS ORDERED: Simvastatin 10 MG Tab PO SCH (09:00)
--- NOTE | 2018-11-11 10:56 | PCM.OPNOTE ---
- General Post-Op/Procedure Note Date of Surgery/Procedure: 11/07/18 Operative Procedure(s): right total knee arthroplasty Pre Op Diagnosis: right knee osteoarthrosis Post-Op Diagnosis: Same Anesthesia Technique: Local, MAC, Spinal Primary Surgeon: Abdi Jeff Anesthesia Provider: Anita Lind Printing Services Coordinator: Abi Coy Printing Services Coordinator: Bailee aHynes EBChana in mLs: 500 Complications: None Condition: Good Free Text/Narrative:: size 3/3 9mm 29x9
--- NOTE | 2018-11-11 11:44 | OR ---
DATE OF OPERATION: 11/07/2018 SURGEON: Abdi Jeff MD OPERATION PERFORMED: Right total knee arthroplasty. PREOPERATIVE DIAGNOSIS: Right knee osteoarthrosis. POSTOPERATIVE DIAGNOSIS: Right knee osteoarthrosis. ANESTHESIA: Local MAC with spinal. ANESTHESIA PROVIDER: Anita Lind. BENEFITS COORDINATOR: 1. Abi Coy PA-C. 2. Bailee Haynes LPN. ESTIMATED BLOOD LOSS: 500 mL. COMPLICATIONS: None. CONDITION: Stable. IMPLANTS: 1. [place] size 3 press-fit CR femur. 2. [place] size 3 press-fit tibial base plate. 3. [place] size 3, 9 mm CS polyethylene insert. 4. [place] size 29 x 9 mm asymmetric press-fit patella. DESCRIPTION OF PROCEDURE: The patient was identified in the preop holding area. Proper site was marked and identified by the surgeon. The patient was taken back to the operating theater. After adequate anesthesia, the patient's right lower extremity had a nonsterile tourniquet applied and it was sterilely prepped and draped in the usual sterile fashion. OR time-out was performed. The patient received 2 g IV Ancef. At this time, the right lower extremity was exsanguinated. Tourniquet was insufflated to 300 mmHg. Standard medial parapatellar incision was made. Medial parapatellar arthrotomy was created. Deep fibers of the MCL were raised and anterior fat pad was resected. At this time, attention was turned to the patella. Patella measured 22, it was resected to a 13 for 29 x 9 mm patella. Drill holes were then drilled and found to be in adequate position. The drill was then drilled in the distal femur and the intramedullary distal femoral cutting guide was then placed. 8 mm was resected off the distal femur and was found to be an adequate resection. Sizing guide was placed. It was found to be a size 3 press-fit CR femur that was shown on the implant record at the beginning of this dictation. The drill holes were drilled for the epicondylar axis using [place]itesides line and epicondyles as reference. At this time, the 4-in - 1 cutting block was placed. An anterior posterior and anterior and posterior chamfer cuts were then completed. Attention was turned to the tibia. The posterior medial lateral retractors were placed. The extramedullary tibial guide was placed. It was placed in the old footprint of the ACL. It was aligned with the center of the ankle and 0 degrees of slope, 9 mm was then resected off the unaffected side. There was found to be an acceptable reduction. At this time, posterior osteophytes were removed along with medial and lateral meniscus. A trial implant was placed with a correct sized tibia that was mentioned at the beginning of the dictation. A [place] size 3, 9 mm CS polyethylene insert was then placed. The patient's knee was brought through range of motion. The patella was tracking centrally and was stable to varus and valgus stress. Alignment was found to be roughly at 0 degrees. The tibia was stamped and drilled in proper rotation. The universal tibial base plate was impacted in place. Next, the [place] size 3 press-fit CR femur impacted into place and the [place] size 3, 9 mm CS polyethylene insert was placed. The patient's knee was brought into full extension. The patella was then press-fit in place at this time. Tourniquet was deflated. One liter dilute Betadine solution was irrigated through the knee along with 3 L of pulse lavage irrigation with Ancef. Periarticular injection was then completed. The patient's knee was brought through a range of motion. Knee was found to be stable to varus valgus stress, the patella was tracking centrally with full range of motion. At this time, a #2 barbed suture was used for closure of the medial parapatellar arthrotomy. Topical tranexamic acid was placed. 2-0 Vicryl was used subcutaneously, Prineo was used for the skin. The patient tolerated the procedure well and was sent to the PACU in stable condition. NNAMDI /[id number] GIBSON
== END 2018-11-08 13:20 | disposition home or self-care (01) | DRG 302 ==
LOC: JD.SDS 08:06 → JD.MS 12:09
PROVIDERS: ADMIT Orthopaedic Surgery; ATTEND Orthopaedic Surgery
PROC: 0SRC0JA Replacement of Right Knee Joint with Synthetic Substitute, Uncemented, Open Approach (ICD-10-PCS; principal; 2018-11-07)
PROC: 3E0T3BZ Introduction of Anesthetic Agent into Peripheral Nerves and Plexi, Percutaneous Approach (ICD-10-PCS; 2018-11-07)
DX: M17.11 Unilateral primary osteoarthritis, right knee (principal); Z68.41 Body mass index [BMI] 40.0-44.9, adult; I10 Essential (primary) hypertension; K58.9 Irritable bowel syndrome, unspecified; G47.33 Obstructive sleep apnea (adult) (pediatric); E66.01 Morbid (severe) obesity due to excess calories; G89.29 Other chronic pain; M54.9 Dorsalgia, unspecified; I95.9 Hypotension, unspecified; R74.0 Nonspecific elevation of levels of transaminase and lactic acid dehydrogenase [LDH]; F32.9 Major depressive disorder, single episode, unspecified; K21.9 Gastro-esophageal reflux disease without esophagitis; G47.00 Insomnia, unspecified; E03.9 Hypothyroidism, unspecified; Z88.2 Allergy status to sulfonamides; Z88.4 Allergy status to anesthetic agent; Z99.81 Dependence on supplemental oxygen; Z79.84 Long term (current) use of oral hypoglycemic drugs; Z79.899 Other long term (current) drug therapy; Z98.1 Arthrodesis status; Z86.010 Personal history of colon polyps; Z90.49 Acquired absence of other specified parts of digestive tract; Z90.710 Acquired absence of both cervix and uterus; G89.18 Other acute postprocedural pain
CPT/HCPCS: 01402; 36415; 64450; 73560-26-RT; 73560-RT; 80053; 82962; 82977; 85027; 87641; 94640; 97110-GP; 97116-GP; 97161-GP; 97165-GO; 97535-GO; A9270-GY; C1776; J0171; J0690; J0697; J1885; J2001; J2250; J2270; J2370; J2405; J2704; J2795; J3010; J3370; J3490; J7040; J7120

== ENCOUNTER 2019-05-01 07:30 | Inpatient (IN) | payer BC ==
[~2019-05-01 07:30] MED LIST changes: -Acetaminophen 325 MG Tab PO SCH; +Acetaminophen/oxyCODONE 325-5 MG Tab PO PRN; +Bisacodyl 5 MG Tab PO PRN; +Cyclobenzaprine 10 MG Tab PO PRN; -EPINEPHrine 1 MG/1 ML Amp ONE; +EPINEPHrine 1 MG/ML SDV ONE; +Ketorolac 15 MG/ML SDV IVPUSH PRN; -Lidocaine 1% 2 ML ONE; +Morphine 2 MG/ML Syringe IVPUSH PRN; +Naloxone 0.4 MG/ML SDV IVPUSH PRN; +Ondansetron 4 MG/2 ML SDV IVPUSH PRN; -Pregabalin 25 MG Cap PO SCH; +Sennosides 8.6 MG Tab PO PRN; -ceFAZolin 1 GM Vial ONE; +ceFAZolin 2 GM in Premix Bag 1 BAG IV SCH; -oxyCODONE ER 10 MG TAB.ER PO SCH
[2019-05-01] MEDS ORDERED: oxyCODONE ER 10 MG TAB.ER PO SCH (08:00)
[2019-05-01] MEDS ORDERED: Acetaminophen 325 MG Tab PO SCH (08:00)
[2019-05-01] MEDS ORDERED: Pregabalin 25 MG Cap PO SCH (08:00)
--- NOTE | 2019-05-01 08:33 | PCM.CONS ---
H&P History of Present Illness - General Date of Service: 05/01/19 Admit Problem/Dx: Admission Diagnosis/Problem Admission Diagnosis/Problem Osteoarthritis of knee Source of Information: Patient, Old Records, Provider, RN, RN Notes Reviewed History Limitations: Reports: No Limitations - History of Present Illness Initial Comments - Free Text/Narative: Asha Dominguez is a 54 yo female patient of Dr. Jeff who is post-operative day 0 of left TKA. Hospital medicine was consulted for post-operative medical care of the following listed medical conditions. At this time she is resting comfortably in bed. Pain is controlled. She denies any chest pain, shortness of breath, palpitations, nausea, or vomiting. She carries a history of: Depression , IBS, Hemorrhoids, Malignant neoplasm of GI tract, diverticulosis, chronic back pain, Type II DM, Eczema, GERD, HTN, Insomnia, Hypothyroidism, Asthma, BPPV , Gastric ulcer, Leukopenia, Obesity. She was never a smoker. She is a full code. Her primary care provider is Emma Santoro PA-C. - Related Data Allergies/Adverse Reactions: Allergies Allergy/AdvReac Type Severity Reaction Status Date / Time Sulfa (Sulfonamide AdvReac Nausea and Verified 04/28/19 12:43 Antibiotics) Vomiting preservatives in anesthetics Allergy Hives Uncoded 04/28/19 12:43 Home Medications: Home Meds Citalopram Hydrobromide [Celexa] 40 mg PO DAILY 07/07/16 [History] Lisinopril 10 mg PO DAILY 07/07/16 [History] atorvaSTATin Calcium [Atorvastatin Calcium] 10 mg PO DAILY 07/07/16 [History] Levothyroxine [Synthroid] 50 mcg PO DAILY 11/04/18 [History] Metoprolol Succinate 25 mg PO DAILY 11/04/18 [History] Ondansetron HCl [Zofran] 4 mg PO DAILY 11/04/18 [History] metFORMIN HCl [Metformin HCl ER] 500 mg PO DAILY 11/04/18 [History] Ascorbic Acid [Vitamin C] 1,000 mg PO DAILY 04/28/19 [History] Cholecalciferol (Vitamin D3) [Vitamin D3] 5,000 unit PO DAILY 04/28/19 [History] Ferrous Sulfate [Iron] 325 mg PO DAILY 04/28/19 [History] Past Medical History HEENT History: Reports: Epistaxis Cardiovascular History: Reports: Hypertension, Other (See Below) Other Cardiovascular History: varicose veins Respiratory History: Reports: Asthma, Sleep Apnea Gastrointestinal History: Reports: Colon Polyp, GERD, Hemorrhoids, Irritable Bowel Syndrome, Other (See Below) Other Gastrointestinal History: adenamatous colon polyp, magligant neoplasm of GI tract, diverticultis, abdominal pain, gall stones Genitourinary History: Reports: Other (See Below) Other Genitourinary History: dysuria, renal cysts [employer] History: Reports: Musculoskeletal History: Reports: Back Pain, Chronic, Other (See Below) Other Musculoskeletal History: L foot pain Neurological History: Reports: Vertigo Psychiatric History: Reports: Depression, Other (See Below) Other Psychiatric History: insomnia Endocrine/Metabolic History: Reports: Hypothyroidism, Obesity/BMI 30+ Hematologic History: Reports: Other (See Below) Other Hematologic History: leuokpenia Immunologic History: Reports: None Oncologic (Cancer) History: Reports: None Dermatologic History: Reports: Eczema - Past Surgical History Head Surgeries/Procedures: Reports: None HEENT Surgical History: Reports: Oral Surgery Respiratory Surgical History: Reports: None GI Surgical History: Reports: Appendectomy, Cholecystectomy, Colonoscopy, EGD Female Surgical History: Reports: Section, Hysterectomy Neurological Surgical History: Reports: None Musculoskeletal Surgical History: Reports: Carpal Tunnel, Knee Replacement Other Musculoskeletal Surgeries/Procedures:: Lower lumbar fusion. Social & Family History - Family History Family Medical History: Noncontributory - Tobacco Use Smoking Status *Q: Never Smoker Second Hand Smoke Exposure: No - Caffeine Use Caffeine Use: Reports: Coffee Other Caffeine Use: 2-3 cups/day - Recreational Drug Use Recreational Drug Use: No - Living Situation & Occupation Living situation: Reports: Occupation: Employed H&P Review of Systems - Review of Systems: Review Of Systems: See Below General: Reports: No Symptoms. Denies: Fever, Chills HEENT: Reports: No Symptoms. Denies: Headaches, Sore Throat Pulmonary: Reports: No Symptoms. Denies: Shortness of Breath, Wheezing, Pleuritic Chest Pain, Cough, Sputum Cardiovascular: Reports: No Symptoms. Denies: Chest Pain, Palpitations Gastrointestinal: Reports: No Symptoms. Denies: Abdominal Pain, Constipation, Diarrhea, Nausea, Vomiting Genitourinary: Reports: No Symptoms. Denies: Pain Musculoskeletal: Reports: Leg Pain (left) Skin: Reports: No Symptoms. Denies: Cyanosis Psychiatric: Reports: No Symptoms. Denies: Confusion Neurological: Reports: Difficulty Walking, Gait Disturbance Hematologic/Lymphatic: Reports: No Symptoms Immunologic: Reports: No Symptoms Exam - Exam Exam: See Below - Exam Quality Assessment: DVT Prophylaxis General: Alert, Oriented, Cooperative. No: Mild Distress HEENT: Conjunctiva Clear, EACs Clear, Hearing Intact, Mucosa Moist & [place], Nares Patent, Posterior Pharynx Clear, PERRLA Neck: Supple, Trachea Midline Lungs: Clear to Auscultation Cardiovascular: Regular Rate, Regular Rhythm GI/Abdominal Exam: Normal Bowel Sounds, Soft, Non-Tender, No Distention, No Abnormal Bruit (Female) Exam: Deferred Rectal (Female) Exam: Deferred Extremities: Normal Capillary Refill, Leg Pain, Limited Range of Motion, Other ( Bandage in place on left leg. Bandage is dry and intact. Cooling pack in place. ) Peripheral Pulses: 2+: Radial (L), Radial (R), Dorsalis Pedis (L), Dorsalis Pedis (R) Skin: Warm, Dry, Intact Neurological: Cranial Nerves Intact (Grossly ) Neuro Extensive - Mental Status: Alert, Oriented x3, Normal Mood/Affect Consult PN Assessment/Plan POD#: 0 Procedures: Procedures BONE IMAGING (3D) (03/23/18) BONE IMAGING WHOLE BODY (03/23/18) CONTROL OF NOSEBLEED (07/24/16) CT ABD & PELV W/CONTRAST (07/07/16) CT HEAD/BRAIN W/O DYE (05/27/14) DIAGNOSTIC COLONOSCOPY (07/08/16) EGD BIOPSY SINGLE/MULTIPLE (07/08/16) EMERGENCY DEPT VISIT (06/29/18) IMMUNIZATION ADMIN (05/27/14) LAPARO CHOLECYSTECTOMY/GRAPH (09/02/16) MRI ABDOMEN W/O DYE (09/10/16) MRI JNT OF LWR EXTRE W/O DYE (08/02/17) MRI LUMBAR SPINE W/O DYE (01/21/18) POLYSOM 6/>YRS CPAP 4/> PARM (06/10/16) RPR S/N/AX/GEN/TRNK2.6-7.5CM (05/27/14) TDAP VACCINE 7 YRS/> IM (05/27/14) THER/PROPH/DIAG INJ SC/IM (06/29/18) TISSUE EXAM BY PATHOLOGIST (09/02/16) TISSUE EXAM BY PATHOLOGIST (07/08/16) US EXAM ABDOM COMPLETE (07/17/16) X-RAY BILE DUCTS/PANCREAS (09/02/16) X-RAY EXAM KNEE 4 OR MORE (06/29/18) X-RAY EXAM L-S SPINE 2/3 VWS (07/22/18) X-RAY EXAM NECK SPINE 4/5VWS (01/06/18) (1) S/P total knee arthroplasty SNOMED Code(s): 0971489655117, 387349127, 9223266245570 Code(s): Z96.659 - PRESENCE OF UNSPECIFIED ARTIFICIAL KNEE JOINT Priority: High Current Visit: Yes Qualifiers: Laterality: left Qualified Code(s): Z96.652 - Presence of left artificial knee joint (2) Osteoarthritis SNOMED Code(s): 126839395 Code(s): M19.90 - UNSPECIFIED OSTEOARTHRITIS, UNSPECIFIED SITE Priority: High Current Visit: Yes Qualifiers: Osteoarthritis location: knee Osteoarthritis type: primary Laterality: left Qualified Code(s): M17.12 - Unilateral primary osteoarthritis, left knee (3) Depression SNOMED Code(s): 82722865 Code(s): F32.9 - MAJOR DEPRESSIVE DISORDER, SINGLE EPISODE, UNSPECIFIED Priority: Low Current Visit: No Qualifiers: Depression Type: other depression Qualified Code(s): F32.89 - Other specified depressive episodes (4) IBS (irritable bowel syndrome) SNOMED Code(s): 04668268 Code(s): K58.9 - IRRITABLE BOWEL SYNDROME WITHOUT DIARRHEA Priority: Medium Current Visit: No Qualifiers: Irritable bowel syndrome type: unspecified Qualified Code(s): K58.9 - Irritable bowel syndrome without diarrhea (5) GERD (gastroesophageal reflux disease) SNOMED Code(s): 412168538 Code(s): K21.9 - GASTRO-ESOPHAGEAL REFLUX DISEASE WITHOUT ESOPHAGITIS Priority: Low Current Visit: No Qualifiers: Esophagitis presence: esophagitis presence not specified Qualified Code(s) : K21.9 - Gastro-esophageal reflux disease without esophagitis (6) HTN (hypertension) SNOMED Code(s): 82987552 Code(s): I10 - ESSENTIAL (PRIMARY) HYPERTENSION Priority: Medium Current Visit: No Qualifiers: Hypertension type: unspecified Qualified Code(s): I10 - Essential (primary ) hypertension (7) Insomnia SNOMED Code(s): 365030194 Code(s): G47.00 - INSOMNIA, UNSPECIFIED Priority: Low Current Visit: No Qualifiers: Insomnia type: unspecified Qualified Code(s): G47.00 - Insomnia, unspecified (8) Hypothyroid SNOMED Code(s): 54429890 Code(s): E03.9 - HYPOTHYROIDISM, UNSPECIFIED Priority: Low Current Visit : No Qualifiers: Hypothyroidism type: unspecified Qualified Code(s): E03.9 - Hypothyroidism , unspecified (9) Asthma SNOMED Code(s): 870241037 Code(s): J45.909 - UNSPECIFIED ASTHMA, UNCOMPLICATED Priority: Medium Current Visit: No Qualifiers: Asthma severity: unspecified severity Asthma persistence: unspecified Asthma complication type: unspecified Qualified Code(s): J45.909 - Unspecified asthma, uncomplicated (10) BPPV (benign paroxysmal positional vertigo) SNOMED Code(s): 225073753 Code(s): H81.10 - BENIGN PAROXYSMAL VERTIGO, UNSPECIFIED EAR Priority: Low Current Visit: No Qualifiers: Laterality: unspecified laterality Qualified Code(s): H81.10 - Benign paroxysmal vertigo, unspecified ear (11) Gastric ulcer SNOMED Code(s): 214321374 Code(s): K25.9 - GASTRIC ULCER, UNSP ACUTE OR CHRONIC, W/O HEMOR OR PERF Priority: Low Current Visit: No Qualifiers: Gastric ulcer chronicity: unspecified ulcer chronicity Gastric ulcer complication status: unspecified whether hemorrhage or perforation present Qualified Code(s): K25.9 - Gastric ulcer, unspecified as acute or chronic, without hemorrhage or perforation (12) Leukopenia SNOMED Code(s): 03537359, 882322912 Code(s): D72.819 - DECREASED WHITE BLOOD CELL COUNT, UNSPECIFIED Priority: Low Current Visit: No Qualifiers: Leukopenia type: unspecified Qualified Code(s): D72.819 - Decreased white blood cell count, unspecified (13) Malignant neoplasm of gastrointestinal tract SNOMED Code(s): 535434123 Code(s): C26.9 - MALIGNANT NEOPLASM OF ILL-DEFINED SITES WITHIN THE DGSTV SYS Priority: Low Current Visit: No (14) Chronic back pain SNOMED Code(s): 569369377 Code(s): M54.9 - DORSALGIA, UNSPECIFIED; G89.29 - OTHER CHRONIC PAIN Priority: Low Current Visit: No Qualifiers: Back pain location: back pain in unspecified location Back pain laterality : unspecified Qualified Code(s): M54.9 - Dorsalgia, unspecified; G89.29 - Other chronic pain (15) Type II diabetes mellitus SNOMED Code(s): 91723801 Code(s): E11.9 - TYPE 2 DIABETES MELLITUS WITHOUT COMPLICATIONS Priority: Low Current Visit: No Qualifiers: Diabetes mellitus oysterman insulin use: unspecified fpc insulin use status Diabetes mellitus complication status: with other specified complication Qualified Code(s): E11.69 - Type 2 diabetes mellitus with other specified complication (16) Obesity SNOMED Code(s): 700699152, 589276735 Code(s): E66.9 - OBESITY, UNSPECIFIED Priority: Low Current Visit: No Qualifiers: Obesity type: unspecified obesity type Obesity classification: adult class 3 (BMI >= 40) Serious obesity comorbidity presence: unspecified whether serious comorbidity present Body mass index: BMI 40.0-44.9 Qualified Code(s) : E66.01 - Morbid (severe) obesity due to excess calories; Z68.41 - Body mass index (BMI) 40.0-44.9, adult (17) Eczema SNOMED Code(s): 94085240 Code(s): L30.9 - DERMATITIS, UNSPECIFIED Priority: Low Current Visit: No Qualifiers: Eczema type: unspecified Qualified Code(s): L30.9 - Dermatitis, unspecified Problem List Initiated/Reviewed/Updated: Yes Plan: I/P: Acute: S/P left total knee arthroplasty - post-operative day 0 -DVT prophylaxis and pain management per primary care team -PT/OT -IS/RT -Monitor oxygen saturation -Titrate oxygen as needed -Home medications reviewed -Vital signs stable -Monitor labs -Pre-operative Hgb was 14.2 -Pre-operative GFR was 75 -Pre-operative A1C was 5.2% Osteoarthritis of Left knee -Pain management per primary care team Chronic: Depression IBS Hemorrhoids Malignant neoplasm of GI tract Diverticulosis Chronic back pain Type II DM Eczema GERD HTN Insomnia Hypothyroidism Asthma BPPV Gastric ulcer Leukopenia Plan: CM for discharge planning GI prophylaxis Home medications as indicated Other orders as listed above Routine AM labs She is a full code. Her PCP is Emma Santoro PA-C Thank you for allowing us to participate in the care of this patient!! Requesting Provider: Dr. Jeff Date Consult Requested: 05/01/19 Patient History Reviewed: Yes Admission H&P Reviewed: Yes Notified Requestor: Yes
--- NOTE | 2019-05-01 08:35 | PCM.PREANE ---
Preanesthetic Assessment - Procedure Proposed Procedure: left total knee replacement - Anesthesia/Transfusion/Family Hx Anesthesia History: No Prior Anesthesia Family History of Anesthesia Reaction: No Transfusion History: No Prior Transfusion(s) Type of Transfusion Reactions: Reports: Unknown Intubation History: Unknown - Review of Systems General: No Symptoms Pulmonary: No Symptoms Cardiovascular: No Symptoms Gastrointestinal: No Symptoms Neurological: No Symptoms Other: Reports: Diabetes, Thyroid Problems, Depression - Physical Assessment NPO Status Date: 04/30/19 NPO Status Time: 19:00 Vital Signs: 144/83 88 98% 16 99.1 Height: 5 ft 4 in Weight: 110.223 kg ASA Class: 2 Mental Status: Alert & Oriented x3 Airway Class: Mallampati = 1 Dentition: Reports: Normal Dentition Thyro-Mental Finger Breadths: 3 Mouth Opening Finger Breadths: 3 ROM/Head Extension: Full Lungs: Clear to Auscultation, Normal Respiratory Effort Cardiovascular: Regular Rate, Regular Rhythm, No Murmurs - Lab Values: Laboratory Last Values MRSA (PCR) Negative 04/19/19 15:49 - Allergies Allergies/Adverse Reactions: Allergies Allergy/AdvReac Type Severity Reaction Status Date / Time Sulfa (Sulfonamide AdvReac Nausea and Verified 04/28/19 12:43 Antibiotics) Vomiting preservatives in anesthetics Allergy Hives Uncoded 04/28/19 12:43 - Blood Blood Available: No - Anesthesia Plan Beta Lory: Metoprolol Med Last Dose Date: 05/01/19 Med Last Dose Time: 07:00 - Acknowledgements Anesthesia Type Planned: Spinal Pt an Appropriate Candidate for the Planned Anesthesia: Yes Alternatives and Risks of Anesthesia Discussed w Pt/Guardian: Yes Pt/Guardian Understands and Agrees with Anesthesia Plan: Yes PreAnesthesia Questionnaire HEENT History: Reports: Epistaxis Cardiovascular History: Reports: Hypertension, Other (See Below) Other Cardiovascular History: varicose veins Respiratory History: Reports: Asthma, Sleep Apnea (cpap) Gastrointestinal History: Reports: Colon Polyp, GERD, Hemorrhoids, Irritable Bowel Syndrome, Other (See Below) Other Gastrointestinal History: adenamatous colon polyp, magligant neoplasm of GI tract, diverticultis, abdominal pain, gall stones Genitourinary History: Reports: Other (See Below) Other Genitourinary History: dysuria, renal cysts [employer] History: Reports: Musculoskeletal History: Reports: Back Pain, Chronic, Other (See Below) Other Musculoskeletal History: L foot pain Neurological History: Reports: Vertigo Psychiatric History: Reports: Depression, Other (See Below) Other Psychiatric History: insomnia Endocrine/Metabolic History: Reports: Diabetes, Type II, Hypothyroidism, Obesity /BMI 30+ Hematologic History: Reports: Other (See Below) Other Hematologic History: leuokpenia Immunologic History: Reports: None Oncologic (Cancer) History: Reports: None Dermatologic History: Reports: Eczema, Other (See Below) (noted small red raised areas with pus on right and left legs) - Past Surgical History Head Surgeries/Procedures: Reports: None HEENT Surgical History: Reports: Oral Surgery Respiratory Surgical History: Reports: None GI Surgical History: Reports: Appendectomy, Cholecystectomy, Colonoscopy, EGD Female Surgical History: Reports: Section, Hysterectomy Neurological Surgical History: Reports: None Musculoskeletal Surgical History: Reports: Carpal Tunnel, Knee Replacement Other Musculoskeletal Surgeries/Procedures:: Lower lumbar fusion. - SUBSTANCE USE Smoking Status *Q: Never Smoker Tobacco Use Within Last Twelve Months: No Second Hand Smoke Exposure: No Days Per Week of Alcohol Use: 1 Recreational Drug Use History: No - HOME MEDS Home Medications: Home Meds Citalopram Hydrobromide [Celexa] 40 mg PO DAILY 07/07/16 [History] Lisinopril 10 mg PO DAILY 07/07/16 [History] atorvaSTATin Calcium [Atorvastatin Calcium] 10 mg PO DAILY 07/07/16 [History] Levothyroxine [Synthroid] 50 mcg PO DAILY 11/04/18 [History] Metoprolol Succinate 25 mg PO DAILY 11/04/18 [History] Ondansetron HCl [Zofran] 4 mg PO DAILY 11/04/18 [History] metFORMIN HCl [Metformin HCl ER] 500 mg PO DAILY 11/04/18 [History] Ascorbic Acid [Vitamin C] 1,000 mg PO DAILY 04/28/19 [History] Cholecalciferol (Vitamin D3) [Vitamin D3] 5,000 unit PO DAILY 04/28/19 [History] Ferrous Sulfate [Iron] 325 mg PO DAILY 04/28/19 [History] - CURRENT (IN HOUSE) MEDS Current Meds: Current Medications Acetaminophen (Tylenol) 975 mg PO ONETIME KATHRYN Stop: 05/01/19 13:00 Bisacodyl (Dulcolax) 5 mg PO DAILY PRN PRN Reason: Constipation Morphine Sulfate 8 mg/Epinephrine HCl 0.3 mg/Cefuroxime Sodium 750 mg/Ketorolac Tromethamine 30 mg/Sodium Chloride 7.9 ml 0 mg .XX ONETIME ONE Stop: 05/01/19 10:01 Cyclobenzaprine HCl (Flexeril) 10 mg PO TID PRN PRN Reason: Spasms Docusate Sodium (Colace) 100 mg PO BID KATHRYN Famotidine (Pepcid) 20 mg PO Q12H [facility] Lactated Ringer's (Ringers, Lactated) 1,000 mls @ 125 mls/hr IV ASDIRECTED [facility] Stop: 05/01/19 23:00 Cefazolin Sodium/Dextrose 2 gm (/ Premix) 50 mls @ 100 mls/hr IV Q8H [facility] Stop: 05/01/19 23:14 Ketorolac Tromethamine (Toradol) 15 mg IVPUSH Q6H PRN PRN Reason: Pain Lidocaine/Sodium Bicarbonate (Buffered Lidocaine 1% In Ns 8.4%) 0.25 ml IDERM ONETIME PRN PRN Reason: Prior to IV Start Stop: 05/01/19 18:00 Morphine Sulfate (Morphine) 2 mg IVPUSH Q2H PRN PRN Reason: Breakthrough Pain Naloxone HCl (Narcan) 0.1 mg IVPUSH Q5M PRN PRN Reason: Oversedation Ondansetron HCl (Zofran) 4 mg IVPUSH Q6H PRN PRN Reason: Nausea/Vomiting Oxycodone HCl (Oxycontin) 10 mg PO ONETIME [facility] Stop: 05/01/19 13:00 Oxycodone/Acetaminophen (Percocet 325-5 Mg) 1 - 2 tab PO Q4H PRN PRN Reason: Pain Pregabalin (Lyrica) 50 mg PO ONETIME [facility] Stop: 05/01/19 13:00 Rivaroxaban (Xarelto) 10 mg PO DAILY [facility] Senna (Senna) 8.6 mg PO BID PRN PRN Reason: Constipation Sodium Chloride (Saline Flush) 10 ml FLUSH ASDIRECTED PRN PRN Reason: Keep Vein Open Stop: 05/01/19 18:00 Discontinued Medications Epinephrine HCl (Adrenalin) Confirm Administered Dose 1 mg .ROUTE .STK-MED ONE Stop: 05/01/19 07:15 Fentanyl (Sublimaze) Confirm Administered Dose 100 mcg .ROUTE .STK-MED ONE Stop: 05/01/19 07:21 Midazolam HCl (Versed 1 Mg/Ml) Confirm Administered Dose 2 mg .ROUTE .STK-MED ONE Stop: 05/01/19 07:21 Propofol (Diprivan 20 Ml) Confirm Administered Dose 600 mg .ROUTE .STK-MED ONE Stop: 05/01/19 07:21 Ropivacaine (Naropin 0.5%) Confirm Administered Dose 30 ml .ROUTE .STK-MED ONE Stop: 05/01/19 07:14 Ropivacaine (Naropin 0.5%) Confirm Administered Dose 30 ml .ROUTE .STK-MED ONE Stop: 05/01/19 07:15
[2019-05-01 08:37] VITALS: BP 144/83; PULSE 88
[2019-05-01] MEDS ORDERED: Morphine 8 MG, EPINEPHrine 0.3 MG, Cefuroxime 750 MG, Ketorolac 30 MG, Sodium Chloride ... ONE ×5 (10:00)
[2019-05-01] MEDS ORDERED: Famotidine 20 MG Tab PO SCH (21:00)
[2019-05-01] MEDS ORDERED: Docusate Sodium 100 MG Cap PO SCH (21:00)
[2019-05-02] MEDS ORDERED: Rivaroxaban 10 MG Tab PO SCH (09:00)
== END 2019-05-01 09:47 | disposition still patient (30) | DRG 351 ==
LOC: JD.MS 08:14 → EDSTATUS 08:45
PROVIDERS: ADMIT Orthopaedic Surgery; ATTEND Orthopaedic Surgery
DX: M17.12 Unilateral primary osteoarthritis, left knee (principal); I10 Essential (primary) hypertension; J45.909 Unspecified asthma, uncomplicated; K21.9 Gastro-esophageal reflux disease without esophagitis; G47.30 Sleep apnea, unspecified; M54.9 Dorsalgia, unspecified; G89.29 Other chronic pain; F32.9 Major depressive disorder, single episode, unspecified; G47.00 Insomnia, unspecified; E11.9 Type 2 diabetes mellitus without complications; E03.9 Hypothyroidism, unspecified; E66.9 Obesity, unspecified; Z79.890 Hormone replacement therapy; Z90.49 Acquired absence of other specified parts of digestive tract; Z90.710 Acquired absence of both cervix and uterus; Z88.2 Allergy status to sulfonamides; Z88.8 Allergy status to other drugs, medicaments and biological substances; Z79.84 Long term (current) use of oral hypoglycemic drugs; Z79.899 Other long term (current) drug therapy; Z68.41 Body mass index [BMI] 40.0-44.9, adult; Z53.9 Procedure and treatment not carried out, unspecified reason
CPT/HCPCS: 82962; 87641; A9270-GY; J0171; J2250; J2704; J2795; J3010; J7120

== ENCOUNTER 2019-05-08 11:30 | Inpatient (IN) | payer BC ==
[~2019-05-08 11:30] MED LIST changes: -Acetaminophen/oxyCODONE 325-5 MG Tab PO PRN; -Bisacodyl 5 MG Tab PO PRN; -Cyclobenzaprine 10 MG Tab PO PRN; -EPINEPHrine 1 MG/ML SDV ONE; -Ketorolac 15 MG/ML SDV IVPUSH PRN; -Midazolam 1 MG/ML 2 ML SDV ONE; -Morphine 2 MG/ML Syringe IVPUSH PRN; -Naloxone 0.4 MG/ML SDV IVPUSH PRN; -Ondansetron 4 MG/2 ML SDV IVPUSH PRN; -Propofol 200 MG/20 ML SDV ONE; -Ropivacaine 0.5% 5 MG/ML 30 ML SDV ONE; -Sennosides 8.6 MG Tab PO PRN; -ceFAZolin 2 GM in Premix Bag 1 BAG IV SCH; -fentaNYL 100 MCG/2 ML SDV ONE
[2019-05-11] MEDS ORDERED: Lactated Ringers 1,000 ML IV SCH (00:01)
[2019-05-11] MEDS ORDERED: Lidocaine 1%/Sod Bicarbonate in NS 8.4% 1 ML Syringe IDERM PRN (00:01)
[2019-05-11] MEDS ORDERED: Sodium Chloride 0.9% 10 ML Syringe FLUSH PRN (00:01)
[2019-05-11] MEDS ORDERED: Bisacodyl 5 MG Tab PO PRN (06:36)
[2019-05-11] MEDS ORDERED: Morphine 8 MG, EPINEPHrine 0.3 MG, Cefuroxime 750 MG, Ketorolac 30 MG, Sodium Chloride ... PRN ×5 (06:36)
[2019-05-11] MEDS ORDERED: Naloxone 0.4 MG/ML SDV IVPUSH PRN (06:36)
[2019-05-11] MEDS ORDERED: Ondansetron 4 MG/2 ML SDV IVPUSH PRN ×2 (06:36→10:16)
[2019-05-11] MEDS ORDERED: Sennosides 8.6 MG Tab PO PRN (06:36)
[2019-05-11] MEDS ORDERED: Magnesium Hydroxide 400 MG/5 ML Susp 30 ML Cup PO PRN (06:36)
[2019-05-11] MEDS ORDERED: Morphine 2 MG/ML Syringe IVPUSH PRN (06:36)
[2019-05-11] MEDS ORDERED: EPINEPHrine 1 MG/ML SDV ONE (07:33)
[2019-05-11] MEDS ORDERED: Ropivacaine 0.5% 5 MG/ML 30 ML SDV ONE (07:33)
[2019-05-11] MEDS ORDERED: oxyCODONE ER 10 MG TAB.ER PO SCH (08:00)
[2019-05-11] MEDS ORDERED: Pregabalin 25 MG Cap PO SCH (08:00)
[2019-05-11] MEDS ORDERED: Acetaminophen 325 MG Tab PO SCH (08:00)
--- NOTE | 2019-05-11 08:17 | PCM.CONS ---
H&P History of Present Illness - General Date of Service: 05/11/19 Admit Problem/Dx: Admission Diagnosis/Problem Admission Diagnosis/Problem Osteoarthritis of knee Source of Information: Patient, Old Records, Provider, RN, RN Notes Reviewed History Limitations: Reports: No Limitations - History of Present Illness Initial Comments - Free Text/Narative: Asha Dominguez is a 54 yo female patient of Dr. Jeff who is post-operative day 0 of left TKA. Hospital medicine was consulted for post-operative medical care of the following listed medical conditions. At this time she is resting comfortably in bed. Pain is controlled. She denies any chest pain, shortness of breath, palpitations, nausea, or vomiting. She carries a history of: Depression , IBS, GERD, HTN, Insomnia, Hypothyroid, Asthma, BPPV, Gastric ulcer, Leukopenia , ADRIANNA treated with CPAP, History of colon cancer, Type II DM, Hemorrhoids, Cholelithiasis, Chronic back pain, Obesity, Eczema. She was never a smoker. She is a full code. Her primary care provider is Emma Santoro PA-C. Left Knee Pain Score (Numeric/FACES): 5 - Related Data Allergies/Adverse Reactions: Allergies Allergy/AdvReac Type Severity Reaction Status Date / Time Sulfa (Sulfonamide AdvReac Nausea and Verified 05/11/19 13:20 Antibiotics) Vomiting preservatives in anesthetics Allergy Hives Uncoded 05/11/19 13:20 Home Medications: Home Meds Citalopram Hydrobromide [Celexa] 40 mg PO DAILY 07/07/16 [History] Lisinopril 10 mg PO DAILY 07/07/16 [History] atorvaSTATin Calcium [Atorvastatin Calcium] 10 mg PO DAILY 07/07/16 [History] Levothyroxine [Synthroid] 50 mcg PO DAILY 11/04/18 [History] Metoprolol Succinate 25 mg PO DAILY 11/04/18 [History] Ondansetron HCl [Zofran] 4 mg PO DAILY PRN 11/04/18 [History] metFORMIN HCl [Metformin HCl ER] 500 mg PO DAILY 11/04/18 [History] Ascorbic Acid [Vitamin C] 1,000 mg PO DAILY 04/28/19 [History] Cholecalciferol (Vitamin D3) [Vitamin D3] 5,000 unit PO DAILY 04/28/19 [History] Ferrous Sulfate [Iron] 325 mg PO DAILY 04/28/19 [History] Past Medical History HEENT History: Reports: Epistaxis Cardiovascular History: Reports: Hypertension, Other (See Below) Other Cardiovascular History: varicose veins Respiratory History: Reports: Asthma, Sleep Apnea Gastrointestinal History: Reports: Colon Polyp, GERD, Hemorrhoids, Irritable Bowel Syndrome, Other (See Below) Other Gastrointestinal History: adenamatous colon polyp, magligant neoplasm of GI tract, diverticultis, abdominal pain, gall stones Genitourinary History: Reports: Other (See Below) Other Genitourinary History: dysuria, renal cysts 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: Musculoskeletal History: Reports: Back Pain, Chronic, Other (See Below) Other Musculoskeletal History: L foot pain Neurological History: Reports: Vertigo Psychiatric History: Reports: Depression, Other (See Below) Other Psychiatric History: insomnia Endocrine/Metabolic History: Reports: Diabetes, Type II, Hypothyroidism, Obesity /BMI 30+ Hematologic History: Reports: Other (See Below) Other Hematologic History: leuokpenia Immunologic History: Reports: None Oncologic (Cancer) History: Reports: None Dermatologic History: Reports: Eczema, Other (See Below) - Past Surgical History Head Surgeries/Procedures: Reports: None HEENT Surgical History: Reports: Oral Surgery Respiratory Surgical History: Reports: None GI Surgical History: Reports: Appendectomy, Cholecystectomy, Colonoscopy, EGD Female Surgical History: Reports: Section, Hysterectomy Neurological Surgical History: Reports: None Musculoskeletal Surgical History: Reports: Carpal Tunnel, Knee Replacement Other Musculoskeletal Surgeries/Procedures:: Lower lumbar fusion. Oncologic Surgical History: Reports: None Social & Family History - Family History Family Medical History: Noncontributory - Tobacco Use Smoking Status *Q: Never Smoker Second Hand Smoke Exposure: No - Caffeine Use Caffeine Use: Reports: Coffee Other Caffeine Use: 2-3 cups/day - Recreational Drug Use Recreational Drug Use: No - Living Situation & Occupation Living situation: Reports: Occupation: Employed H&P Review of Systems - Review of Systems: Review Of Systems: See Below General: Reports: No Symptoms. Denies: Fever, Chills HEENT: Reports: No Symptoms. Denies: Headaches, Sore Throat Pulmonary: Reports: No Symptoms. Denies: Shortness of Breath, Wheezing, Pleuritic Chest Pain, Cough, Sputum Cardiovascular: Reports: No Symptoms. Denies: Chest Pain, Palpitations, Dyspnea on Exertion Gastrointestinal: Reports: Abdominal Pain (mild generalized ), Nausea. Denies: Constipation, Diarrhea, Vomiting Genitourinary: Reports: No Symptoms Musculoskeletal: Reports: Leg Pain Skin: Reports: No Symptoms. Denies: Cyanosis Psychiatric: Reports: No Symptoms. Denies: Confusion Neurological: Reports: Difficulty Walking, Gait Disturbance Hematologic/Lymphatic: Reports: No Symptoms Immunologic: Reports: No Symptoms Exam - Exam Exam: See Below - Exam Quality Assessment: DVT Prophylaxis General: Alert, Oriented, Cooperative. No: Mild Distress HEENT: Conjunctiva Clear, EACs Clear, Hearing Intact, Mucosa Moist & [place], Posterior Pharynx Clear Neck: Supple, Trachea Midline Lungs: Clear to Auscultation, Normal Respiratory Effort Cardiovascular: Regular Rate, Regular Rhythm GI/Abdominal Exam: Normal Bowel Sounds, Soft, Non-Tender (Reports generalized tenderness but no tenderness noted on palpitation ), No Organomegaly, No Distention (Female) Exam: Deferred Rectal (Female) Exam: Deferred Back Exam: Normal Inspection, Full Range of Motion Extremities: Normal Inspection, Normal Range of Motion, Non-Tender, No Pedal Edema, Normal Capillary Refill Peripheral Pulses: 2+: Radial (L), Radial (R), Dorsalis Pedis (L), Dorsalis Pedis (R) Skin: Warm, Dry, Intact Neurological: Cranial Nerves Intact (Grossly ) Neuro Extensive - Mental Status: Alert, Oriented x3, Normal Mood/Affect Consult PN Assessment/Plan POD#: 0 Procedures: Procedures BONE IMAGING (3D) (03/23/18) BONE IMAGING WHOLE BODY (03/23/18) CONTROL OF NOSEBLEED (07/24/16) CT ABD & PELV W/CONTRAST (07/07/16) CT HEAD/BRAIN W/O DYE (05/27/14) DIAGNOSTIC COLONOSCOPY (07/08/16) EGD BIOPSY SINGLE/MULTIPLE (07/08/16) EMERGENCY DEPT VISIT (06/29/18) IMMUNIZATION ADMIN (05/27/14) LAPARO CHOLECYSTECTOMY/GRAPH (09/02/16) MRI ABDOMEN W/O DYE (09/10/16) MRI JNT OF LWR EXTRE W/O DYE (08/02/17) MRI LUMBAR SPINE W/O DYE (01/21/18) POLYSOM 6/>YRS CPAP 4/> PARM (06/10/16) RPR S/N/AX/GEN/TRNK2.6-7.5CM (05/27/14) TDAP VACCINE 7 YRS/> IM (05/27/14) THER/PROPH/DIAG INJ SC/IM (06/29/18) TISSUE EXAM BY PATHOLOGIST (09/02/16) TISSUE EXAM BY PATHOLOGIST (07/08/16) US EXAM ABDOM COMPLETE (07/17/16) X-RAY BILE DUCTS/PANCREAS (09/02/16) X-RAY EXAM KNEE 4 OR MORE (06/29/18) X-RAY EXAM L-S SPINE 2/3 VWS (07/22/18) X-RAY EXAM NECK SPINE 4/5VWS (01/06/18) (1) S/P total knee arthroplasty SNOMED Code(s): 9413786728926, 658721531, 5279860760662 Code(s): Z96.659 - PRESENCE OF UNSPECIFIED ARTIFICIAL KNEE JOINT Priority: High Current Visit: No Qualifiers: Laterality: left Qualified Code(s): Z96.652 - Presence of left artificial knee joint (2) Osteoarthritis SNOMED Code(s): 681294212 Code(s): M19.90 - UNSPECIFIED OSTEOARTHRITIS, UNSPECIFIED SITE Priority: High Current Visit: No Qualifiers: Osteoarthritis location: knee Osteoarthritis type: primary Laterality: left Qualified Code(s): M17.12 - Unilateral primary osteoarthritis, left knee (3) Hemorrhoids SNOMED Code(s): 62479286 Code(s): K64.9 - UNSPECIFIED HEMORRHOIDS Priority: Low Current Visit: No Qualifiers: Hemorrhoid type: unspecified Qualified Code(s): K64.9 - Unspecified hemorrhoids (4) ADRIANNA on CPAP SNOMED Code(s): 47071904 Code(s): G47.33 - OBSTRUCTIVE SLEEP APNEA (ADULT) (PEDIATRIC); Z99.89 - DEPENDENCE ON OTHER ENABLING MACHINES AND DEVICES Priority: Medium Current Visit: No (5) Asthma SNOMED Code(s): 177536062 Code(s): J45.909 - UNSPECIFIED ASTHMA, UNCOMPLICATED Priority: Medium Current Visit: No Qualifiers: Asthma severity: unspecified severity Asthma persistence: unspecified Asthma complication type: unspecified Qualified Code(s): J45.909 - Unspecified asthma, uncomplicated (6) BPPV (benign paroxysmal positional vertigo) SNOMED Code(s): 564816218 Code(s): H81.10 - BENIGN PAROXYSMAL VERTIGO, UNSPECIFIED EAR Priority: Low Current Visit: No Qualifiers: Laterality: unspecified laterality Qualified Code(s): H81.10 - Benign paroxysmal vertigo, unspecified ear (7) Cholelithiasis SNOMED Code(s): 293257870 Code(s): K80.20 - CALCULUS OF GALLBLADDER W/O CHOLECYSTITIS W/O OBSTRUCTION Current Visit: No Qualifiers: Cholelithiasis location: gallbladder Cholecystitis presence: without cholecystitis Biliary obstruction: without biliary obstruction Qualified Code(s): K80.20 - Calculus of gallbladder without cholecystitis without obstruction (8) Chronic back pain SNOMED Code(s): 728984600 Code(s): M54.9 - DORSALGIA, UNSPECIFIED; G89.29 - OTHER CHRONIC PAIN Priority: Low Current Visit: No Qualifiers: Back pain location: back pain in unspecified location Back pain laterality : unspecified Qualified Code(s): M54.9 - Dorsalgia, unspecified; G89.29 - Other chronic pain (9) Depression SNOMED Code(s): 00933806 Code(s): F32.9 - MAJOR DEPRESSIVE DISORDER, SINGLE EPISODE, UNSPECIFIED Priority: Low Current Visit: No Qualifiers: Depression Type: other depression Qualified Code(s): F32.89 - Other specified depressive episodes (10) Eczema SNOMED Code(s): 51230644 Code(s): L30.9 - DERMATITIS, UNSPECIFIED Priority: Low Current Visit: No Qualifiers: Eczema type: unspecified Qualified Code(s): L30.9 - Dermatitis, unspecified (11) GERD (gastroesophageal reflux disease) SNOMED Code(s): 741680915 Code(s): K21.9 - GASTRO-ESOPHAGEAL REFLUX DISEASE WITHOUT ESOPHAGITIS Priority: Low Current Visit: No Qualifiers: Esophagitis presence: esophagitis presence not specified Qualified Code(s) : K21.9 - Gastro-esophageal reflux disease without esophagitis (12) Gastric ulcer SNOMED Code(s): 379587520 Code(s): K25.9 - GASTRIC ULCER, UNSP ACUTE OR CHRONIC, W/O HEMOR OR PERF Priority: Low Current Visit: No Qualifiers: Gastric ulcer chronicity: unspecified ulcer chronicity Gastric ulcer complication status: unspecified whether hemorrhage or perforation present Qualified Code(s): K25.9 - Gastric ulcer, unspecified as acute or chronic, without hemorrhage or perforation (13) HTN (hypertension) SNOMED Code(s): 38277927 Code(s): I10 - ESSENTIAL (PRIMARY) HYPERTENSION Priority: Medium Current Visit: No Qualifiers: Hypertension type: unspecified Qualified Code(s): I10 - Essential (primary ) hypertension (14) Hypothyroid SNOMED Code(s): 52658650 Code(s): E03.9 - HYPOTHYROIDISM, UNSPECIFIED Priority: Low Current Visit : No Qualifiers: Hypothyroidism type: unspecified Qualified Code(s): E03.9 - Hypothyroidism , unspecified (15) IBS (irritable bowel syndrome) SNOMED Code(s): 93599497 Code(s): K58.9 - IRRITABLE BOWEL SYNDROME WITHOUT DIARRHEA Priority: Medium Current Visit: No Qualifiers: Irritable bowel syndrome type: unspecified Qualified Code(s): K58.9 - Irritable bowel syndrome without diarrhea (16) Insomnia SNOMED Code(s): 551598338 Code(s): G47.00 - INSOMNIA, UNSPECIFIED Priority: Low Current Visit: No Qualifiers: Insomnia type: unspecified Qualified Code(s): G47.00 - Insomnia, unspecified (17) Leukopenia SNOMED Code(s): 94166235, 816746619 Code(s): D72.819 - DECREASED WHITE BLOOD CELL COUNT, UNSPECIFIED Priority: Low Current Visit: No Qualifiers: Leukopenia type: unspecified Qualified Code(s): D72.819 - Decreased white blood cell count, unspecified (18) Malignant neoplasm of gastrointestinal tract SNOMED Code(s): 454312592 Code(s): C26.9 - MALIGNANT NEOPLASM OF ILL-DEFINED SITES WITHIN THE DGSTV SYS Priority: Low Current Visit: No (19) Obesity SNOMED Code(s): 352536627, 086067444 Code(s): E66.9 - OBESITY, UNSPECIFIED Priority: Low Current Visit: No Qualifiers: Obesity type: unspecified obesity type Obesity classification: adult class 3 (BMI >= 40) Serious obesity comorbidity presence: unspecified whether serious comorbidity present Body mass index: BMI 40.0-44.9 Qualified Code(s) : E66.01 - Morbid (severe) obesity due to excess calories; Z68.41 - Body mass index (BMI) 40.0-44.9, adult (20) Type II diabetes mellitus SNOMED Code(s): 69220872 Code(s): E11.9 - TYPE 2 DIABETES MELLITUS WITHOUT COMPLICATIONS Priority: Low Current Visit: No Qualifiers: 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 status Diabetes mellitus complication status: with other specified complication Qualified Code(s): E11.69 - Type 2 diabetes mellitus with other specified complication Problem List Initiated/Reviewed/Updated: Yes Plan: I/P: Acute: S/P left total knee arthroplasty - post-operative day 0 -DVT prophylaxis and pain management per primary care team -PT/OT -IS/RT -Monitor oxygen saturation -Titrate oxygen as needed -Home medications reviewed -Vital signs stable -Monitor labs -Pre-operative Hgb was 14.2 -Pre-operative GFR was 75 -Pre-operative A1C was 5.2% -Pre-operative 12-lead EKG showed sinus rhythm at 80 BPM Osteoarthritis of left knee -Pain management per primary care team Post-operative nausea -No emesis -Nursing gave Zofran and scopolamine patch -Monitor Chronic: Depression IBS GERD HTN Insomnia Hypothyroid Asthma BPPV Gastric ulcer Leukopenia ADRIANNA treated with CPAP History of colon cancer Type II DM Hemorrhoids Cholelithiasis Chronic back pain Obesity Eczema Plan: CM for discharge planning GI prophylaxis Home medications as indicated Other orders as listed above Routine AM labs She is a full code. Her PCP is Emma Santoro PA-C Thank you for allowing us to participate in the care of this patient!! Requesting Provider: Dr. Jeff Date Consult Requested: 05/11/19 Patient History Reviewed: Yes Admission H&P Reviewed: Yes Notified Requestor: Yes
[2019-05-11] MEDS ORDERED: ceFAZolin 1 GM Vial ONE ×2 (08:40→09:46)
[2019-05-11] MEDS ORDERED: Bupivacaine 0.25% 10 ML SDV ONE (08:41)
[2019-05-11] MEDS ORDERED: Iodine/Sodium Iodide 2% Tincture 30 ML Bottle ONE (08:41)
[2019-05-11] MEDS ORDERED: Scopolamine 1.5 MG Transdermal Patch TRDERM ONE (09:04)
--- NOTE | 2019-05-11 09:04 | PCM.PREANE ---
Preanesthetic Assessment - Anesthesia/Transfusion/Family Hx Anesthesia History: Prior Anesthesia Without Reaction Type of Anesthesia Reaction: Excessive Nausea/Vomiting (with hysterectomy/none with spinal with right knee replacement) Family History of Anesthesia Reaction: No Transfusion History: No Prior Transfusion(s) Intubation History: Unknown (use of glidescope noted with previous intubation) - Review of Systems General: No Symptoms Pulmonary: No Symptoms (ADRIANNA with CPAP, Asthma very stable, last used inhaler 1 year ago. ETOH on occasion.) Cardiovascular: No Symptoms (HTN, ) Gastrointestinal: No Symptoms (GERD/History of Colon Cancer: leukopenia) Neurological: No Symptoms (History of Vertigo/L4-L5 back surgery noted with hardware noted) Other: Reports: Diabetes (Am BS=76 @ 0912), Thyroid Problems (Hypothyroid), Neck Pain (1-2 with extension), Depression - Physical Assessment NPO Status Date: 05/10/19 NPO Status Time: 19:00 Vital Signs: HR:90 BP:156/85 Resp:19 Sat:97% Temp:98.9 Height: 1.6 m Weight: 110 kg ASA Class: 3 Mental Status: Alert & Oriented x3 Airway Class: Mallampati = 3 Dentition: Reports: Normal Dentition, Caries Thyro-Mental Finger Breadths: 3 Mouth Opening Finger Breadths: 3 ROM/Head Extension: Full Lungs: Clear to Auscultation, Normal Respiratory Effort Cardiovascular: Regular Rate, Regular Rhythm, No Murmurs - Lab Values: All labs reviewed and noted and within acceptable ranges to proceed with scheduled procedure. - Imaging/EKG Impressions: CXR: negative EKG: SR rate = 80 - Allergies Allergies/Adverse Reactions: Allergies Allergy/AdvReac Type Severity Reaction Status Date / Time Sulfa (Sulfonamide AdvReac Nausea and Verified 04/28/19 12:43 Antibiotics) Vomiting preservatives in anesthetics Allergy Hives Uncoded 04/28/19 12:43 - Anesthesia Plan Pre-Op Medication Ordered: Beta Lory, Other (preoperative oral meds: lyrica, tylenol, oxycodone @) Beta Lory: Metoprolol Med Last Dose Date: 05/11/19 Med Last Dose Time: 07:30 - Acknowledgements Anesthesia Type Planned: Spinal (Left Adductor canal block under US guidance for post operative pain control requested by Dr. Jeff.) Pt an Appropriate Candidate for the Planned Anesthesia: Yes Alternatives and Risks of Anesthesia Discussed w Pt/Guardian: Yes Pt/Guardian Understands and Agrees with Anesthesia Plan: Yes PreAnesthesia Questionnaire HEENT History: Reports: Epistaxis Cardiovascular History: Reports: Hypertension, Other (See Below) Other Cardiovascular History: varicose veins Respiratory History: Reports: Asthma, Sleep Apnea Gastrointestinal History: Reports: Colon Polyp, GERD, Hemorrhoids, Irritable Bowel Syndrome, Other (See Below) Other Gastrointestinal History: adenamatous colon polyp, magligant neoplasm of GI tract, diverticultis, abdominal pain, gall stones Genitourinary History: Reports: Other (See Below) Other Genitourinary History: dysuria, renal cysts [employer]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: Musculoskeletal History: Reports: Back Pain, Chronic, Other (See Below) Other Musculoskeletal History: L foot pain Neurological History: Reports: Vertigo Psychiatric History: Reports: Depression, Other (See Below) Other Psychiatric History: insomnia Endocrine/Metabolic History: Reports: Diabetes, Type II, Hypothyroidism, Obesity /BMI 30+ Hematologic History: Reports: Other (See Below) Other Hematologic History: leuokpenia Immunologic History: Reports: None Oncologic (Cancer) History: Reports: None Dermatologic History: Reports: Eczema, Other (See Below) - Past Surgical History Head Surgeries/Procedures: Reports: None HEENT Surgical History: Reports: Oral Surgery Respiratory Surgical History: Reports: None GI Surgical History: Reports: Appendectomy, Cholecystectomy, Colonoscopy, EGD Female Surgical History: Reports: Section, Hysterectomy Neurological Surgical History: Reports: None Musculoskeletal Surgical History: Reports: Carpal Tunnel, Knee Replacement Other Musculoskeletal Surgeries/Procedures:: Lower lumbar fusion. Oncologic Surgical History: Reports: None - SUBSTANCE USE Smoking Status *Q: Never Smoker Second Hand Smoke Exposure: No Recreational Drug Use History: No - HOME MEDS Home Medications: Home Meds Citalopram Hydrobromide [Celexa] 40 mg PO DAILY 07/07/16 [History] Lisinopril 10 mg PO DAILY 07/07/16 [History] atorvaSTATin Calcium [Atorvastatin Calcium] 10 mg PO DAILY 07/07/16 [History] Levothyroxine [Synthroid] 50 mcg PO DAILY 11/04/18 [History] Metoprolol Succinate 25 mg PO DAILY 11/04/18 [History] Ondansetron HCl [Zofran] 4 mg PO DAILY 11/04/18 [History] metFORMIN HCl [Metformin HCl ER] 500 mg PO DAILY 11/04/18 [History] Ascorbic Acid [Vitamin C] 1,000 mg PO DAILY 04/28/19 [History] Cholecalciferol (Vitamin D3) [Vitamin D3] 5,000 unit PO DAILY 04/28/19 [History] Ferrous Sulfate [Iron] 325 mg PO DAILY 04/28/19 [History] - CURRENT (IN HOUSE) MEDS Current Meds: Current Medications Acetaminophen (Tylenol) 975 mg PO ONETIME KATHRYN Stop: 05/11/19 16:00 Bisacodyl (Dulcolax) 5 mg PO DAILY PRN PRN Reason: Constipation Morphine Sulfate 8 mg/Epinephrine HCl 0.3 mg/Cefuroxime Sodium 750 mg/Ketorolac Tromethamine 30 mg/Sodium Chloride 7.9 ml 0 mg .XX ASDIRECTED PRN PRN Reason: Pain Stop: 05/11/19 12:00 Cyclobenzaprine HCl (Flexeril) 10 mg PO TID PRN PRN Reason: Spasms Docusate Sodium (Colace) 100 mg PO BID KATHRYN Famotidine (Pepcid) 20 mg PO Q12H [facility] Lactated Ringer's (Ringers, Lactated) 1,000 mls @ 125 mls/hr IV ASDIRECTED KATHRYN Stop: 05/11/19 23:00 Cefazolin Sodium/Dextrose 2 gm (/ Premix) 50 mls @ 100 mls/hr IV Q8H [facility] Stop: 05/11/19 23:14 Ketorolac Tromethamine (Toradol) 15 mg IVPUSH Q6H PRN PRN Reason: Pain Lidocaine/Sodium Bicarbonate (Buffered Lidocaine 1% In Ns 8.4%) 0.25 ml IDERM ONETIME PRN PRN Reason: Prior to IV Start Stop: 05/11/19 18:00 Magnesium Hydroxide (Milk Of Magnesia) 30 ml PO BID PRN PRN Reason: Constipation Morphine Sulfate (Morphine) 2 mg IVPUSH Q2H PRN PRN Reason: Breakthrough Pain Naloxone HCl (Narcan) 0.1 mg IVPUSH Q5M PRN PRN Reason: Oversedation Ondansetron HCl (Zofran) 4 mg IVPUSH Q6H PRN PRN Reason: Nausea/Vomiting Oxycodone HCl (Oxycontin) 10 mg PO ONETIME [facility] Stop: 05/11/19 16:00 Oxycodone/Acetaminophen (Percocet 325-5 Mg) 1 - 2 tab PO Q4H PRN PRN Reason: Pain Pregabalin (Lyrica) 50 mg PO ONETIME [facility] Stop: 05/11/19 16:00 Rivaroxaban (Xarelto) 10 mg PO DAILY [facility] Senna (Senna) 8.6 mg PO BID PRN PRN Reason: Constipation Sodium Chloride (Saline Flush) 10 ml FLUSH ASDIRECTED PRN PRN Reason: Keep Vein Open Stop: 05/11/19 18:00 Discontinued Medications Bupivacaine HCl (Sensorcaine-Mpf 0.25%) Confirm Administered Dose 30 ml .ROUTE .STK-MED ONE Stop: 05/11/19 08:42 Cefazolin Sodium (Ancef) Confirm Administered Dose 2 gm .ROUTE .STK-MED ONE Stop: 05/11/19 08:41 Epinephrine HCl (Adrenalin) Confirm Administered Dose 1 mg .ROUTE .STK-MED ONE Stop: 05/11/19 07:34 Lactated Ringer's (Ringers, Lactated) 1,000 mls @ 125 mls/hr IV ASDIRECTED [facility] Stop: 05/08/19 23:00 Iodine (Iodine 2% Mild Tincture) Confirm Administered Dose 30 ml .ROUTE .STK- MED ONE Stop: 05/11/19 08:42 Lidocaine/Sodium Bicarbonate (Buffered Lidocaine 1% In Ns 8.4%) 0.25 ml IDERM ONETIME PRN PRN Reason: Prior to IV Start Stop: 05/08/19 18:00 Ropivacaine (Naropin 0.5%) Confirm Administered Dose 30 ml .ROUTE .STK-MED ONE Stop: 05/11/19 07:34 Sodium Chloride (Saline Flush) 10 ml FLUSH ASDIRECTED PRN PRN Reason: Keep Vein Open Stop: 05/08/19 18:00 Tranexamic Acid (Cyklokapron) Confirm Administered Dose 1,000 mg .ROUTE .STK- MED ONE Stop: 05/11/19 08:41 Vancomycin HCl (Vancomycin) Confirm Administered Dose 1 gm .ROUTE .STK-MED ONE Stop: 05/11/19 08:41
[2019-05-11] MEDS ORDERED: Ketorolac 30 MG/ML SDV ONE (09:46)
[2019-05-11] MEDS ORDERED: Propofol 200 MG/20 ML SDV ONE ×2 (09:46→11:10)
[2019-05-11] MEDS ORDERED: fentaNYL 100 MCG/2 ML SDV ONE (09:46)
[2019-05-11] MEDS ORDERED: Lidocaine 1% 6 ML ONE (09:46)
[2019-05-11] MEDS ORDERED: Lactated Ringers 2,000 ML ONE (09:46)
[2019-05-11] MEDS ORDERED: Ondansetron 4 MG/2 ML SDV ONE (09:46)
[2019-05-11] MEDS ORDERED: Ketamine 500 mg/10 ML MDV ONE (09:47)
[2019-05-11] MEDS ORDERED: diphenhydrAMINE 50 MG/ML SDV IVPUSH PRN (10:16)
[2019-05-11] MEDS ORDERED: ePHEDrine 50 MG/ML SDV IVPUSH PRN (10:16)
[2019-05-11] MEDS ORDERED: fentaNYL 100 MCG/2 ML SDV IVPUSH PRN (10:16)
[2019-05-11] MEDS ORDERED: Albuterol 0.083% 2.5 MG/3 ML Neb Soln NEB PRN (10:16)
[2019-05-11] MEDS ORDERED: HYDROmorphone 0.5 MG/0.5 ML Syringe IVPUSH PRN (10:16)
[2019-05-11] MEDS ORDERED: Phenylephrine 1 MG in Sodium Chloride 0.9% 10 ML IV SCH (10:30)
[2019-05-11] MEDS: Vancomycin 1 GM SDV ONE ×2 (11:10→11:12)
--- NOTE | 2019-05-11 12:08 | PCM.POSTAN ---
POST ANESTHESIA ASSESSMENT - MENTAL STATUS Mental Status: Alert - VITAL SIGNS Vital Signs: Last Vital Signs Temp 97.6 05/11/19 1142 Pulse 77 05/11/19 1142 Resp 17 05/11/19 1142 BP 104/57 05/11/19 1142 Pulse Ox 98 05/11/19 1142 - RESPIRATORY Respiratory Status: Respiratory Rate WNL, Airway Patent, O2 Saturation Stable, Supplemental Oxygen - CARDIOVASCULAR CV Status: Pulse Rate WNL, Blood Pressure Stable - GASTROINTESTINAL GI Status: No Symptoms - POST OP HYDRATION Hydration Status: Adequate & Stable
--- NOTE | 2019-05-11 12:14 | PCM.SN ---
- Free Text/Narrative Note: Left selective femoral nerve block at the adductor canal for post-procedure pain control under US guidance requested by Dr. Jeff. Time Out: 1147 Start: 1153 End: 1159 Chart reviewed. Consent signed. Questions answered. Appropriate monitors applied. Time out performed. Left mid-shaft femur identified with ultrasound, scanning medially of femur, the femoral artery in the adductor canal visualized , and the femoral nerve located laterally to the artery. The skin was prepped lateral to the ultrasound probe with chlorahexadine times two. The 21ga 4 insulated block needle was inserted under direct ultrasound guidance into the adductor canal. 25mL of 0.5% ropivacaine with 1:200,000 epinephrine was injected circumferentially around the nerve with intermittent negative aspiration noted. Patient tolerated the procedure well. Sterile technique noted along with sterile gloves, mask, and sterile probe cover. See picture on progress note and vital signs on nurses notes. Block completed in PACU. Saba Mace CRNA
[2019-05-11] MEDS: Ketorolac 15 MG/ML SDV IVPUSH PRN (14:20)
--- NOTE | 2019-05-11 14:58 | CR ---
Left knee: Portable AP and crosstable lateral views of the left knee were obtained. Comparison: No prior knee exam is available. Knee prosthesis is noted. Components are aligned. Soft tissue air is noted from the surgical procedure. No underlying bony abnormality is appreciated. Impression: 1. Satisfactory postop radiographic appearance of a recently placed left knee prosthesis. Diagnostic code #2 Study was dictated in MDT
[2019-05-11] MEDS: ceFAZolin 2 GM in Premix Bag 1 BAG IV SCH (17:19)
[2019-05-11] MEDS: Acetaminophen/oxyCODONE 325-5 MG Tab PO PRN (17:20)
[2019-05-11] MEDS: Citalopram 20 MG Tab PO SCH (18:00)
[2019-05-11] MEDS: Lisinopril 10 MG Tab PO SCH (18:01)
[2019-05-11] MEDS: Cholecalciferol (Vitamin D3) 5,000 UNIT Tab PO SCH (18:01)
[2019-05-11] MEDS: Ferrous Sulfate 324 MG Tab.EC PO SCH (18:01)
[2019-05-11] MEDS: Famotidine 20 MG Tab PO SCH (20:31)
[2019-05-11] MEDS: Simvastatin 10 MG Tab PO SCH (20:31)
[2019-05-11] MEDS: Docusate Sodium 100 MG Cap PO SCH (20:31)
[2019-05-12] MEDS: ceFAZolin 2 GM in Premix Bag 1 BAG IV SCH ×3 (00:45→09:08)
[2019-05-12] MEDS: Acetaminophen/oxyCODONE 325-5 MG Tab PO PRN ×2 (00:52→05:29)
[2019-05-12] MEDS: Ketorolac 15 MG/ML SDV IVPUSH PRN ×2 (03:42→15:11)
[2019-05-12] MEDS: Levothyroxine 50 MCG Tab PO SCH (05:30)
--- NOTE | 2019-05-12 07:38 | PCM.CONSN ---
- General Info Date of Service: 05/12/19 Admission Dx/Problem (Free Text): Admission Diagnosis/Problem Admission Diagnosis/Problem Osteoarthritis of knee Functional Status: Reports: Pain Controlled, Tolerating Diet, Ambulating, Urinating, Incentive Spirometry. Denies: New Symptoms - Review of Systems General: Reports: No Symptoms. Denies: Fever, Chills HEENT: Reports: No Symptoms. Denies: Headaches, Sore Throat Pulmonary: Reports: No Symptoms. Denies: Shortness of Breath, Pleuritic Chest Pain, Cough, Sputum, Wheezing Cardiovascular: Reports: No Symptoms. Denies: Chest Pain, Palpitations, Dyspnea on Exertion Gastrointestinal: Reports: No Symptoms. Denies: Abdominal Pain, Constipation, Diarrhea, Nausea, Vomiting Genitourinary: Reports: No Symptoms. Denies: Pain Musculoskeletal: Reports: No Symptoms Skin: Reports: No Symptoms. Denies: Cyanosis Neurological: Reports: No Symptoms, Difficulty Walking. Denies: Confusion Psychiatric: Reports: No Symptoms - Patient Data Vitals - Most Recent: Last Vital Signs Temp 97.9 F 05/12/19 03:49 Pulse 78 05/12/19 03:49 Resp 16 05/12/19 03:49 BP 103/70 05/12/19 03:49 Pulse Ox 100 05/12/19 03:49 Weight - Most Recent: 251 lb 3.2 oz I&O - Last 24 Hours: Intake & Output 05/11/19 05/12/19 05/12/19 22:59 06:59 14:59 Intake Total 1020 16 Output Total 200 950 Balance 820 -934 Lab Results Last 24 Hours: Laboratory Results - last 24 hr 05/11/19 05/11/19 05/12/19 Range/Units 09:12 11:55 05:55 WBC 5.98 (3.98-10.04) K/mm3 RBC 3.80 L (3.98-5.22) M/mm3 Hgb 10.8 L (11.2-15.7) gm/dl Hct 32.9 L (34.1-44.9) % MCV 86.6 D (79.4-94.8) fl MCH 28.4 (25.6-32.2) pg MCHC 32.8 (32.2-35.5) g/dl RDW Std Deviation 42.2 (36.4-46.3) fL Plt Count 180 L (182-369) K/mm3 MPV 10.7 (9.4-12.3) fl Sodium (136-145) mEq/L Potassium (3.5-5.1) mEq/L Chloride (98-107) mEq/L Carbon Dioxide (21-32) mEq/L Anion Gap (5-15) BUN (7-18) mg/dL Creatinine (0.55-1.02) mg/dL Est Cr Clr Drug Dosing mL/min Estimated GFR (MDRD) (>60) mL/min BUN/Creatinine Ratio (14-18) Glucose (74-106) mg/dL POC Glucose 76 89 (70-105) mg/dL Calcium (8.5-10.1) mg/dL Total Bilirubin (0.2-1.0) mg/dL AST (15-37) U/L ALT (14-59) U/L Alkaline Phosphatase (46-116) U/L Total Protein (6.4-8.2) g/dl Albumin (3.4-5.0) g/dl Globulin gm/dL Albumin/Globulin Ratio (1-2) 05/11/ Range/Units 05:55 WBC (3.98-10.04) K/mm3 RBC (3.98-5.22) M/mm3 Hgb (11.2-15.7) gm/dl Hct (34.1-44.9) % MCV (79.4-94.8) fl MCH (25.6-32.2) pg MCHC (32.2-35.5) g/dl RDW Std Deviation (36.4-46.3) fL Plt Count (182-369) K/mm3 MPV (9.4-12.3) fl Sodium 141 (136-145) mEq/L Potassium 4.2 (3.5-5.1) mEq/L Chloride 105 (98-107) mEq/L Carbon Dioxide 27 (21-32) mEq/L Anion Gap 13.2 (5-15) BUN 17 (7-18) mg/dL Creatinine 0.9 (0.55-1.02) mg/dL Est Cr Clr Drug Dosing 57.74 mL/min Estimated GFR (MDRD) > 60 (>60) mL/min BUN/Creatinine Ratio 18.9 H (14-18) Glucose 102 (74-106) mg/dL POC Glucose (70-105) mg/dL Calcium 8.9 (8.5-10.1) mg/dL Total Bilirubin 0.5 (0.2-1.0) mg/dL AST 53 H (15-37) U/L ALT 104 H (14-59) U/L Alkaline Phosphatase 74 (46-116) U/L Total Protein 6.1 L (6.4-8.2) g/dl Albumin 3.0 L (3.4-5.0) g/dl Globulin 3.1 gm/dL Albumin/Globulin Ratio 1.0 (1-2) Med Orders - Current: Current Medications Bisacodyl (Dulcolax) 5 mg PO DAILY PRN PRN Reason: Constipation Cholecalciferol (Vitamin D3) 5,000 unit PO DAILY@1899 [facility] Last Admin: 05/11/19 18:01 Dose: 5,000 unit Citalopram Hydrobromide (Celexa) 40 mg PO DAILY@1899 [facility] Last Admin: 05/11/19 18:00 Dose: 40 mg Cyclobenzaprine HCl (Flexeril) 10 mg PO TID PRN PRN Reason: Spasms Docusate Sodium (Colace) 100 mg PO BID [facility] Last Admin: 05/11/19 20:31 Dose: 100 mg Famotidine (Pepcid) 20 mg PO Q12H [facility] Last Admin: 05/11/19 20:31 Dose: 20 mg Ferrous Sulfate (Ferrous Sulfate) 324 mg PO DAILY@1899 [facility] Last Admin: 05/11/19 18:01 Dose: 324 mg Cefazolin Sodium/Dextrose 2 gm (/ Premix) 50 mls @ 100 mls/hr IV Q8H [facility] Stop: 05/12/19 10:14 Last Admin: 05/12/19 00:45 Dose: 100 mls/hr Ketorolac Tromethamine (Toradol) 15 mg IVPUSH Q6H PRN PRN Reason: Pain Last Admin: 05/12/19 03:42 Dose: 15 mg Levothyroxine Sodium (Synthroid) 50 mcg PO ACBREAKFAST [facility] Last Admin: 05/12/19 05:30 Dose: 50 mcg Lisinopril (Prinivil) 10 mg PO DAILY@1899 [facility] Last Admin: 05/11/19 18:01 Dose: Not Given Magnesium Hydroxide (Milk Of Magnesia) 30 ml PO BID PRN PRN Reason: Constipation Metoprolol Succinate (Toprol Xl) 25 mg PO DAILY [facility] Morphine Sulfate (Morphine) 2 mg IVPUSH Q2H PRN PRN Reason: Breakthrough Pain Naloxone HCl (Narcan) 0.1 mg IVPUSH Q5M PRN PRN Reason: Oversedation Ondansetron HCl (Zofran) 4 mg IVPUSH Q6H PRN PRN Reason: Nausea/Vomiting Last Admin: 05/11/19 14:18 Dose: 4 mg Oxycodone/Acetaminophen (Percocet 325-5 Mg) 1 - 2 tab PO Q4H PRN PRN Reason: Pain Last Admin: 05/12/19 05:29 Dose: 2 tab Rivaroxaban (Xarelto) 10 mg PO DAILY [facility] Senna (Senna) 8.6 mg PO BID PRN PRN Reason: Constipation Simvastatin (Zocor) 10 mg PO BEDTIME [facility] Last Admin: 05/11/19 20:31 Dose: 10 mg Discontinued Medications Acetaminophen (Tylenol) 975 mg PO ONETIME KATHRYN Stop: 05/11/19 16:00 Last Admin: 05/11/19 09:25 Dose: 975 mg Albuterol (Proventil Neb Soln) 2.5 mg NEB ONETIME PRN PRN Reason: asthma Stop: 05/11/19 13:00 Bupivacaine HCl (Sensorcaine-Mpf 0.25%) Confirm Administered Dose 30 ml .ROUTE .STK-MED ONE Stop: 05/11/19 08:42 Last Admin: 05/11/19 11:09 Dose: 30 ml Cefazolin Sodium (Ancef) Confirm Administered Dose 2 gm .ROUTE .STK-MED ONE Stop: 05/11/19 08:41 Last Admin: 05/11/19 11:03 Dose: 2 gm Cefazolin Sodium (Ancef) Confirm Administered Dose 2 gm .ROUTE .STK-MED ONE Stop: 05/11/19 09:47 Morphine Sulfate 8 mg/Epinephrine HCl 0.3 mg/Cefuroxime Sodium 750 mg/Ketorolac Tromethamine 30 mg/Sodium Chloride 7.9 ml 0 mg .XX ASDIRECTED PRN PRN Reason: Pain Stop: 05/11/19 12:00 Last Admin: 05/11/19 11:09 Dose: 788.3 mg Diphenhydramine HCl (Benadryl) 25 mg IVPUSH Q6H PRN PRN Reason: pruritis Stop: 05/11/19 13:00 Ephedrine Sulfate (Ephedrine Sulfate) 5 mg IVPUSH ASDIRECTED PRN PRN Reason: Hypotension Stop: 05/11/19 13:00 Epinephrine HCl (Adrenalin) Confirm Administered Dose 1 mg .ROUTE .STK-MED ONE Stop: 05/11/19 07:34 Fentanyl (Sublimaze) Confirm Administered Dose 100 mcg .ROUTE .STK-MED ONE Stop: 05/11/19 09:47 Fentanyl (Sublimaze) 50 mcg IVPUSH Q5M PRN PRN Reason: Pain Stop: 05/11/19 13:00 Last Admin: 05/11/19 12:17 Dose: 50 mcg Hydromorphone HCl (Dilaudid) 0.5 mg IVPUSH Q15M PRN PRN Reason: Pain (severe 7-10) Stop: 05/11/19 13:00 Lactated Ringer's (Ringers, Lactated) 1,000 mls @ 125 mls/hr IV ASDIRECTED KATHRYN Stop: 05/08/19 23:00 Lactated Ringer's (Ringers, Lactated) 1,000 mls @ 125 mls/hr IV ASDIRECTED KATHRYN Stop: 05/11/19 23:00 Last Admin: 05/11/19 09:15 Dose: 125 mls/hr Lidocaine HCl (Xylocaine-Mpf 1%) Confirm Administered Dose 6 mls @ as directed .ROUTE .STK-MED ONE Stop: 05/11/19 09:47 Lactated Ringer's (Ringers, Lactated) Confirm Administered Dose 2,000 mls @ as directed .ROUTE .STK-MED ONE Stop: 05/11/19 09:47 Phenylephrine HCl 1 mg/ Sodium (Chloride) 10.1 mls @ 1 mls/sec IV TITRATE KATHRYN; Protocol Stop: 05/11/19 13:00 Iodine (Iodine 2% Mild Tincture) Confirm Administered Dose 30 ml .ROUTE .STK- MED ONE Stop: 05/11/19 08:42 Last Admin: 05/11/19 11:00 Dose: 18 ml Ketamine HCl (Ketalar) Confirm Administered Dose 500 mg .ROUTE .STK-MED ONE Stop: 05/11/19 09:48 Ketorolac Tromethamine (Toradol) Confirm Administered Dose 30 mg .ROUTE .STK- MED ONE Stop: 05/11/19 09:47 Lidocaine/Sodium Bicarbonate (Buffered Lidocaine 1% In Ns 8.4%) 0.25 ml IDERM ONETIME PRN PRN Reason: Prior to IV Start Stop: 05/08/19 18:00 Lidocaine/Sodium Bicarbonate (Buffered Lidocaine 1% In Ns 8.4%) 0.25 ml IDERM ONETIME PRN PRN Reason: Prior to IV Start Stop: 05/11/19 18:00 Miscellaneous Medication (Phenylephrine 1 Mg/10 Ml-Ns) Confirm Administered Dose 1 mg IV .STK-MED ONE Stop: 05/11/19 09:47 Ondansetron HCl (Zofran) Confirm Administered Dose 4 mg .ROUTE .STK-MED ONE Stop: 05/11/19 09:47 Ondansetron HCl (Zofran) 4 mg IVPUSH ONETIME PRN PRN Reason: Nausea/Vomiting Stop: 05/11/19 13:00 Oxycodone HCl (Oxycontin) 10 mg PO ONETIME KATHRYN Stop: 05/11/19 16:00 Last Admin: 05/11/19 09:25 Dose: 10 mg Pregabalin (Lyrica) 50 mg PO ONETIME KATHRYN Stop: 05/11/19 16:00 Last Admin: 05/11/19 09:25 Dose: 50 mg Propofol (Diprivan 20 Ml) Confirm Administered Dose 400 mg .ROUTE .STK-MED ONE Stop: 05/11/19 09:47 Propofol (Diprivan 20 Ml) Confirm Administered Dose 200 mg .ROUTE .STK-MED ONE Stop: 05/11/19 11:11 Ropivacaine (Naropin 0.5%) Confirm Administered Dose 30 ml .ROUTE .STK-MED ONE Stop: 05/11/19 07:34 Scopolamine (Transderm-Scop) 1.5 mg TRDERM ONETIME ONE Stop: 05/11/19 09:05 Last Admin: 05/11/19 09:27 Dose: 1.5 mg Sodium Chloride (Saline Flush) 10 ml FLUSH ASDIRECTED PRN PRN Reason: Keep Vein Open Stop: 05/08/19 18:00 Sodium Chloride (Saline Flush) 10 ml FLUSH ASDIRECTED PRN PRN Reason: Keep Vein Open Stop: 05/11/19 18:00 Tranexamic Acid (Cyklokapron) Confirm Administered Dose 1,000 mg .ROUTE .AnzuK- MED ONE Stop: 05/11/19 08:41 Last Admin: 05/11/19 11:18 Dose: 1,000 mg Vancomycin HCl (Vancomycin) Confirm Administered Dose 1 gm .ROUTE .[place]-MED ONE Stop: 05/11/19 08:41 Last Admin: 05/11/19 11:12 Dose: 1 gm - Exam Quality Assessment: DVT Prophylaxis. No: Supplemental Oxygen, Urine Catheter General: Alert, Oriented, Cooperative, No Acute Distress HEENT: Pupils Equal, Pupils Reactive, Mucous Membr. Moist/[place] Neck: Supple, Trachea Midline Lungs: Clear to Auscultation, Normal Respiratory Effort Cardiovascular: Regular Rate, Regular Rhythm GI/Abdominal Exam: Normal Bowel Sounds, Soft, Non-Tender, No Distention, No Abnormal Bruit (Female) Exam: Deferred Back Exam: Normal Inspection, Full Range of Motion Extremities: Normal Capillary Refill, Leg Pain, Limited Range of Motion, Other ( Bandage in place on right leg. Cooling pack in place. ) Peripheral Pulses: 2+: Radial (L), Radial (R), Dorsalis Pedis (L), Dorsalis Pedis (R) Skin: Warm, Dry, Intact Wound/Incisions: Dressing Dry and Intact Neurological: No New Focal Deficit Psy/Mental Status: Alert, Normal Affect, Normal Mood Sepsis Event Note - Evaluation Sepsis Screening Result: No Definite Risk - Focused Exam Vital Signs: Vital Signs Temp Pulse Resp BP Pulse Ox 05/12/19 03:49 97.9 F 78 16 103/70 100 05/12/19 00:43 97.9 F 73 18 95/64 99 05/11/19 20:30 97.7 F 68 16 106/61 99 Date Exam was Performed: 05/12/19 Time Exam was Performed: 10:49 Consult PN Assessment/Plan POD#: 1 Procedures: Procedures BONE IMAGING (3D) (03/23/18) BONE IMAGING WHOLE BODY (03/23/18) CONTROL OF NOSEBLEED (07/24/16) CT ABD & PELV W/CONTRAST (07/07/16) CT HEAD/BRAIN W/O DYE (05/27/14) DIAGNOSTIC COLONOSCOPY (07/08/16) EGD BIOPSY SINGLE/MULTIPLE (07/08/16) EMERGENCY DEPT VISIT (06/29/18) IMMUNIZATION ADMIN (05/27/14) LAPARO CHOLECYSTECTOMY/GRAPH (09/02/16) MRI ABDOMEN W/O DYE (09/10/16) MRI JNT OF LWR EXTRE W/O DYE (08/02/17) MRI LUMBAR SPINE W/O DYE (01/21/18) POLYSOM 6/>YRS CPAP 4/> PARM (06/10/16) RPR S/N/AX/GEN/TRNK2.6-7.5CM (05/27/14) TDAP VACCINE 7 YRS/> IM (05/27/14) THER/PROPH/DIAG INJ SC/IM (06/29/18) TISSUE EXAM BY PATHOLOGIST (09/02/16) TISSUE EXAM BY PATHOLOGIST (07/08/16) US EXAM ABDOM COMPLETE (07/17/16) X-RAY BILE DUCTS/PANCREAS (09/02/16) X-RAY EXAM KNEE 4 OR MORE (06/29/18) X-RAY EXAM L-S SPINE 2/3 VWS (07/22/18) X-RAY EXAM NECK SPINE 4/5VWS (01/06/18) (1) S/P total knee arthroplasty SNOMED Code(s): 7370576199865, 369370691, 5848056746611 Code(s): Z96.659 - PRESENCE OF UNSPECIFIED ARTIFICIAL KNEE JOINT Priority: High Current Visit: No Qualifiers: Laterality: left Qualified Code(s): Z96.652 - Presence of left artificial knee joint (2) Osteoarthritis SNOMED Code(s): 145328131 Code(s): M19.90 - UNSPECIFIED OSTEOARTHRITIS, UNSPECIFIED SITE Priority: High Current Visit: No Qualifiers: Osteoarthritis location: knee Osteoarthritis type: primary Laterality: left Qualified Code(s): M17.12 - Unilateral primary osteoarthritis, left knee (3) Hemorrhoids SNOMED Code(s): 21790906 Code(s): K64.9 - UNSPECIFIED HEMORRHOIDS Priority: Low Current Visit: No Qualifiers: Hemorrhoid type: unspecified Qualified Code(s): K64.9 - Unspecified hemorrhoids (4) ADRIANNA on CPAP SNOMED Code(s): 07490240 Code(s): G47.33 - OBSTRUCTIVE SLEEP APNEA (ADULT) (PEDIATRIC); Z99.89 - DEPENDENCE ON OTHER ENABLING MACHINES AND DEVICES Priority: Medium Current Visit: No (5) Asthma SNOMED Code(s): 097389096 Code(s): J45.909 - UNSPECIFIED ASTHMA, UNCOMPLICATED Priority: Medium Current Visit: No Qualifiers: Asthma severity: unspecified severity Asthma persistence: unspecified Asthma complication type: unspecified Qualified Code(s): J45.909 - Unspecified asthma, uncomplicated (6) BPPV (benign paroxysmal positional vertigo) SNOMED Code(s): 460192040 Code(s): H81.10 - BENIGN PAROXYSMAL VERTIGO, UNSPECIFIED EAR Priority: Low Current Visit: No Qualifiers: Laterality: unspecified laterality Qualified Code(s): H81.10 - Benign paroxysmal vertigo, unspecified ear (7) Cholelithiasis SNOMED Code(s): 226689272 Code(s): K80.20 - CALCULUS OF GALLBLADDER W/O CHOLECYSTITIS W/O OBSTRUCTION Current Visit: No Qualifiers: Cholelithiasis location: gallbladder Cholecystitis presence: without cholecystitis Biliary obstruction: without biliary obstruction Qualified Code(s): K80.20 - Calculus of gallbladder without cholecystitis without obstruction (8) Chronic back pain SNOMED Code(s): 068980401 Code(s): M54.9 - DORSALGIA, UNSPECIFIED; G89.29 - OTHER CHRONIC PAIN Priority: Low Current Visit: No Qualifiers: Back pain location: back pain in unspecified location Back pain laterality : unspecified Qualified Code(s): M54.9 - Dorsalgia, unspecified; G89.29 - Other chronic pain (9) Depression SNOMED Code(s): 06690488 Code(s): F32.9 - MAJOR DEPRESSIVE DISORDER, SINGLE EPISODE, UNSPECIFIED Priority: Low Current Visit: No Qualifiers: Depression Type: other depression Qualified Code(s): F32.89 - Other specified depressive episodes (10) Eczema SNOMED Code(s): 86134349 Code(s): L30.9 - DERMATITIS, UNSPECIFIED Priority: Low Current Visit: No Qualifiers: Eczema type: unspecified Qualified Code(s): L30.9 - Dermatitis, unspecified (11) GERD (gastroesophageal reflux disease) SNOMED Code(s): 518168345 Code(s): K21.9 - GASTRO-ESOPHAGEAL REFLUX DISEASE WITHOUT ESOPHAGITIS Priority: Low Current Visit: No Qualifiers: Esophagitis presence: esophagitis presence not specified Qualified Code(s) : K21.9 - Gastro-esophageal reflux disease without esophagitis (12) Gastric ulcer SNOMED Code(s): 792263812 Code(s): K25.9 - GASTRIC ULCER, UNSP ACUTE OR CHRONIC, W/O HEMOR OR PERF Priority: Low Current Visit: No Qualifiers: Gastric ulcer chronicity: unspecified ulcer chronicity Gastric ulcer complication status: unspecified whether hemorrhage or perforation present Qualified Code(s): K25.9 - Gastric ulcer, unspecified as acute or chronic, without hemorrhage or perforation (13) HTN (hypertension) SNOMED Code(s): 90882758 Code(s): I10 - ESSENTIAL (PRIMARY) HYPERTENSION Priority: Medium Current Visit: No Qualifiers: Hypertension type: unspecified Qualified Code(s): I10 - Essential (primary ) hypertension (14) Hypothyroid SNOMED Code(s): 95313764 Code(s): E03.9 - HYPOTHYROIDISM, UNSPECIFIED Priority: Low Current Visit : No Qualifiers: Hypothyroidism type: unspecified Qualified Code(s): E03.9 - Hypothyroidism , unspecified (15) IBS (irritable bowel syndrome) SNOMED Code(s): 64520192 Code(s): K58.9 - IRRITABLE BOWEL SYNDROME WITHOUT DIARRHEA Priority: Medium Current Visit: No Qualifiers: Irritable bowel syndrome type: unspecified Qualified Code(s): K58.9 - Irritable bowel syndrome without diarrhea (16) Insomnia SNOMED Code(s): 765825188 Code(s): G47.00 - INSOMNIA, UNSPECIFIED Priority: Low Current Visit: No Qualifiers: Insomnia type: unspecified Qualified Code(s): G47.00 - Insomnia, unspecified (17) Leukopenia SNOMED Code(s): 51700336, 560347168 Code(s): D72.819 - DECREASED WHITE BLOOD CELL COUNT, UNSPECIFIED Priority: Low Current Visit: No Qualifiers: Leukopenia type: unspecified Qualified Code(s): D72.819 - Decreased white blood cell count, unspecified (18) Malignant neoplasm of gastrointestinal tract SNOMED Code(s): 090257465 Code(s): C26.9 - MALIGNANT NEOPLASM OF ILL-DEFINED SITES WITHIN THE DGSTV SYS Priority: Low Current Visit: No (19) Obesity SNOMED Code(s): 059634591, 784860671 Code(s): E66.9 - OBESITY, UNSPECIFIED Priority: Low Current Visit: No Qualifiers: Obesity type: unspecified obesity type Obesity classification: adult class 3 (BMI >= 40) Serious obesity comorbidity presence: unspecified whether serious comorbidity present Body mass index: BMI 40.0-44.9 Qualified Code(s) : E66.01 - Morbid (severe) obesity due to excess calories; Z68.41 - Body mass index (BMI) 40.0-44.9, adult (20) Type II diabetes mellitus SNOMED Code(s): 33345783 Code(s): E11.9 - TYPE 2 DIABETES MELLITUS WITHOUT COMPLICATIONS Priority: Low Current Visit: No Qualifiers: Diabetes mellitus senior living insulin use: unspecified 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 use status Diabetes mellitus complication status: with other specified complication Qualified Code(s): E11.69 - Type 2 diabetes mellitus with other specified complication Problem List Initiated/Reviewed/Updated: Yes Plan: I/P: Acute: S/P left total knee arthroplasty - post-operative day 1 -DVT prophylaxis and pain management per primary care team -PT/OT -IS/RT -Monitor oxygen saturation -Titrate oxygen as needed -Home medications reviewed -Vital signs stable -Monitor labs -Pre-operative Hgb was 14.2; Now 10.8 -Pre-operative GFR was 75; Now >60 -Pre-operative A1C was 5.2% -Pre-operative 12-lead EKG showed sinus rhythm at 80 BPM Osteoarthritis of left knee -Pain management per primary care team Mild transaminitis -Normal pre-operatively -AST 53 -ALT 104 -Alk Phos 74 (WNL) -Primary team adjusting pain medications -History of elevation with last surgery - likely 2/2 fatty liver and anesthesia -No abdominal pain -Suggest follow-up with PCP within 7-10 days of discharge for re-check CMP S/P Post-operative nausea -No emesis -Nursing gave Zofran and scopolamine patch -Monitor Chronic: Depression IBS GERD HTN Insomnia Hypothyroid Asthma BPPV Gastric ulcer Leukopenia ADRIANNA treated with CPAP History of colon cancer Type II DM Hemorrhoids Cholelithiasis Chronic back pain Obesity Eczema Plan: CM for discharge planning GI prophylaxis Home medications as indicated Other orders as listed above Routine AM labs She is a full code. Her PCP is Emma Santoro PA-C From a hospitalist standpoint Asha is doing well. She has been up ambulating and working with therapies. She is off of oxygen and has urinated. Pain is controlled. Her labs and vital signs remain stable. She was having some post- operative nausea and vomiting PO Day 0 but this has since resolved. AST and ALT were a bit high at 53 and 104 respectively. These labs were elevated during her last surgery as well. Primary team is adjusting pain medications to avoid tylenol. She should follow-up with her PCP within 7-10 days of discharge for CMP re-check. She will be cleared for discharge pending primary team and PT/OT agreement. Thank you for allowing us to participate in the care of this patient!!
[2019-05-12] MEDS: Famotidine 20 MG Tab PO SCH ×2 (08:55→21:58)
[2019-05-12] MEDS: Metoprolol Succinate 25 MG Tab.ER PO SCH (08:55)
[2019-05-12] MEDS: Docusate Sodium 100 MG Cap PO SCH ×2 (08:55→21:58)
[2019-05-12] MEDS: Cyclobenzaprine 10 MG Tab PO PRN ×2 (08:55→21:59)
[2019-05-12] MEDS: Rivaroxaban 10 MG Tab PO SCH (08:56)
--- NOTE | 2019-05-12 09:26 | PCM48HPAN ---
Post Anesthesia Note - EVALUATION WITHIN 48HRS OF ANESTHETIC Vital Signs in Normal Range: Yes Patient Participated in Evaluation: Yes Respiratory Function Stable: Yes Airway Patent: Yes Cardiovascular Function Stable: Yes Hydration Status Stable: Yes Pain Control Satisfactory: Yes Nausea and Vomiting Control Satisfactory: Yes Mental Status Recovered: Yes Vital Signs: Last Vital Signs Temp 97.0 F 05/12/19 08:17 Pulse 82 05/12/19 08:55 Resp 16 05/12/19 08:17 BP 123/62 05/12/19 08:55 Pulse Ox 94 L 05/12/19 08:17 - COMMENTS/OBSERVATIONS Free Text/Narrative:: Patient on postoperative day 1. States being previously nauseated and dizzy after surgery, but reports these symptoms have resolved completely at this time. Taking PO nutrition and fluids well. Ambulates to the restroom, no urinary retention.
[2019-05-12] MEDS: oxyCODONE 5 MG Tab PO PRN ×3 (09:40→21:59)
--- NOTE | 2019-05-12 09:40 | PCM.SURGPN ---
- General Info Date of Service: 05/12/19 POD#: 1 Functional Status: Reports: Pain Controlled, Tolerating Diet, Ambulating, Urinating, Incentive Spirometry, Other (The pt states she has been doing well.) - Patient Data Vitals - Most Recent: Last Vital Signs Temp 97.0 F 05/12/19 08:17 Pulse 82 05/12/19 08:55 Resp 16 05/12/19 08:17 BP 123/62 05/12/19 08:55 Pulse Ox 94 L 05/12/19 08:17 Weight - Most Recent: 251 lb 3.2 oz I&O - Last 24 Hours: Intake & Output 05/11/19 05/12/19 05/12/19 22:59 06:59 14:59 Intake Total 1020 16 Output Total 200 950 Balance 820 -934 Lab Results Last 24 Hrs: Laboratory Results - last 24 hr 05/11/19 05/12/19 05/12/19 Range/Units 11:55 05:55 05:55 WBC 5.98 (3.98-10.04) K/mm3 RBC 3.80 L (3.98-5.22) M/mm3 Hgb 10.8 L (11.2-15.7) gm/dl Hct 32.9 L (34.1-44.9) % MCV 86.6 D (79.4-94.8) fl MCH 28.4 (25.6-32.2) pg MCHC 32.8 (32.2-35.5) g/dl RDW Std Deviation 42.2 (36.4-46.3) fL Plt Count 180 L (182-369) K/mm3 MPV 10.7 (9.4-12.3) fl Sodium 141 (136-145) mEq/L Potassium 4.2 (3.5-5.1) mEq/L Chloride 105 (98-107) mEq/L Carbon Dioxide 27 (21-32) mEq/L Anion Gap 13.2 (5-15) BUN 17 (7-18) mg/dL Creatinine 0.9 (0.55-1.02) mg/dL Est Cr Clr Drug Dosing 57.74 mL/min Estimated GFR (MDRD) > 60 (>60) mL/min BUN/Creatinine Ratio 18.9 H (14-18) Glucose 102 (74-106) mg/dL POC Glucose 89 (70-105) mg/dL Calcium 8.9 (8.5-10.1) mg/dL Total Bilirubin 0.5 (0.2-1.0) mg/dL AST 53 H (15-37) U/L ALT 104 H (14-59) U/L Alkaline Phosphatase 74 (46-116) U/L Total Protein 6.1 L (6.4-8.2) g/dl Albumin 3.0 L (3.4-5.0) g/dl Globulin 3.1 gm/dL Albumin/Globulin Ratio 1.0 (1-2) Med Orders - Current: Current Medications Bisacodyl (Dulcolax) 5 mg PO DAILY PRN PRN Reason: Constipation Cholecalciferol (Vitamin D3) 5,000 unit PO DAILY@1899 [facility] Last Admin: 05/11/19 18:01 Dose: 5,000 unit Citalopram Hydrobromide (Celexa) 40 mg PO DAILY@1899 [facility] Last Admin: 05/11/19 18:00 Dose: 40 mg Cyclobenzaprine HCl (Flexeril) 10 mg PO TID PRN PRN Reason: Spasms Last Admin: 05/12/19 08:55 Dose: 10 mg Docusate Sodium (Colace) 100 mg PO BID [facility] Last Admin: 05/12/19 08:55 Dose: 100 mg Famotidine (Pepcid) 20 mg PO Q12H [facility] Last Admin: 05/12/19 08:55 Dose: 20 mg Ferrous Sulfate (Ferrous Sulfate) 324 mg PO DAILY@1899 [facility] Last Admin: 05/11/19 18:01 Dose: 324 mg Cefazolin Sodium/Dextrose 2 gm (/ Premix) 50 mls @ 100 mls/hr IV Q8H [facility] Stop: 05/12/19 10:14 Last Admin: 05/12/19 09:08 Dose: Not Given Ketorolac Tromethamine (Toradol) 15 mg IVPUSH Q6H PRN PRN Reason: Pain Last Admin: 05/12/19 03:42 Dose: 15 mg Levothyroxine Sodium (Synthroid) 50 mcg PO ACBREAKFAST [facility] Last Admin: 05/12/19 05:30 Dose: 50 mcg Lisinopril (Prinivil) 10 mg PO DAILY@1899 [facility] Last Admin: 05/11/19 18:01 Dose: Not Given Magnesium Hydroxide (Milk Of Magnesia) 30 ml PO BID PRN PRN Reason: Constipation Metoprolol Succinate (Toprol Xl) 25 mg PO DAILY [facility] Last Admin: 05/12/19 08:55 Dose: 25 mg Morphine Sulfate (Morphine) 2 mg IVPUSH Q2H PRN PRN Reason: Breakthrough Pain Naloxone HCl (Narcan) 0.1 mg IVPUSH Q5M PRN PRN Reason: Oversedation Ondansetron HCl (Zofran) 4 mg IVPUSH Q6H PRN PRN Reason: Nausea/Vomiting Last Admin: 05/11/19 14:18 Dose: 4 mg Oxycodone HCl (Oxycodone) 5 - 10 mg PO Q4H PRN PRN Reason: Pain Rivaroxaban (Xarelto) 10 mg PO DAILY [facility] Last Admin: 05/12/19 08:56 Dose: 10 mg Senna (Senna) 8.6 mg PO BID PRN PRN Reason: Constipation Simvastatin (Zocor) 10 mg PO BEDTIME [facility] Last Admin: 05/11/19 20:31 Dose: 10 mg Discontinued Medications Acetaminophen (Tylenol) 975 mg PO ONETIME [facility] Stop: 05/11/19 16:00 Last Admin: 05/11/19 09:25 Dose: 975 mg Albuterol (Proventil Neb Soln) 2.5 mg NEB ONETIME PRN PRN Reason: asthma Stop: 05/11/19 13:00 Bupivacaine HCl (Sensorcaine-Mpf 0.25%) Confirm Administered Dose 30 ml .ROUTE .STK-MED ONE Stop: 05/11/19 08:42 Last Admin: 05/11/19 11:09 Dose: 30 ml Cefazolin Sodium (Ancef) Confirm Administered Dose 2 gm .ROUTE .STK-MED ONE Stop: 05/11/19 08:41 Last Admin: 05/11/19 11:03 Dose: 2 gm Cefazolin Sodium (Ancef) Confirm Administered Dose 2 gm .ROUTE .STK-MED ONE Stop: 05/11/19 09:47 Morphine Sulfate 8 mg/Epinephrine HCl 0.3 mg/Cefuroxime Sodium 750 mg/Ketorolac Tromethamine 30 mg/Sodium Chloride 7.9 ml 0 mg .XX ASDIRECTED PRN PRN Reason: Pain Stop: 05/11/19 12:00 Last Admin: 05/11/19 11:09 Dose: 788.3 mg Diphenhydramine HCl (Benadryl) 25 mg IVPUSH Q6H PRN PRN Reason: pruritis Stop: 05/11/19 13:00 Ephedrine Sulfate (Ephedrine Sulfate) 5 mg IVPUSH ASDIRECTED PRN PRN Reason: Hypotension Stop: 05/11/19 13:00 Epinephrine HCl (Adrenalin) Confirm Administered Dose 1 mg .ROUTE .STK-MED ONE Stop: 05/11/19 07:34 Fentanyl (Sublimaze) Confirm Administered Dose 100 mcg .ROUTE .STK-MED ONE Stop: 05/11/19 09:47 Fentanyl (Sublimaze) 50 mcg IVPUSH Q5M PRN PRN Reason: Pain Stop: 05/11/19 13:00 Last Admin: 05/11/19 12:17 Dose: 50 mcg Hydromorphone HCl (Dilaudid) 0.5 mg IVPUSH Q15M PRN PRN Reason: Pain (severe 7-10) Stop: 05/11/19 13:00 Lactated Ringer's (Ringers, Lactated) 1,000 mls @ 125 mls/hr IV ASDIRECTED [facility] Stop: 05/08/19 23:00 Lactated Ringer's (Ringers, Lactated) 1,000 mls @ 125 mls/hr IV ASDIRECTED [facility] Stop: 05/11/19 23:00 Last Admin: 05/11/19 09:15 Dose: 125 mls/hr Lidocaine HCl (Xylocaine-Mpf 1%) Confirm Administered Dose 6 mls @ as directed .ROUTE .STK-MED ONE Stop: 05/11/19 09:47 Lactated Ringer's (Ringers, Lactated) Confirm Administered Dose 2,000 mls @ as directed .ROUTE .STK-MED ONE Stop: 05/11/19 09:47 Phenylephrine HCl 1 mg/ Sodium (Chloride) 10.1 mls @ 1 mls/sec IV TITRATE [facility]; Protocol Stop: 05/11/19 13:00 Iodine (Iodine 2% Mild Tincture) Confirm Administered Dose 30 ml .ROUTE .STK- MED ONE Stop: 05/11/19 08:42 Last Admin: 05/11/19 11:00 Dose: 18 ml Ketamine HCl (Ketalar) Confirm Administered Dose 500 mg .ROUTE .STK-MED ONE Stop: 05/11/19 09:48 Ketorolac Tromethamine (Toradol) Confirm Administered Dose 30 mg .ROUTE .STK- MED ONE Stop: 05/11/19 09:47 Lidocaine/Sodium Bicarbonate (Buffered Lidocaine 1% In Ns 8.4%) 0.25 ml IDERM ONETIME PRN PRN Reason: Prior to IV Start Stop: 05/08/19 18:00 Lidocaine/Sodium Bicarbonate (Buffered Lidocaine 1% In Ns 8.4%) 0.25 ml IDERM ONETIME PRN PRN Reason: Prior to IV Start Stop: 05/11/19 18:00 Miscellaneous Medication (Phenylephrine 1 Mg/10 Ml-Ns) Confirm Administered Dose 1 mg IV .STK-MED ONE Stop: 05/11/19 09:47 Ondansetron HCl (Zofran) Confirm Administered Dose 4 mg .ROUTE .STK-MED ONE Stop: 05/11/19 09:47 Ondansetron HCl (Zofran) 4 mg IVPUSH ONETIME PRN PRN Reason: Nausea/Vomiting Stop: 05/11/19 13:00 Oxycodone HCl (Oxycontin) 10 mg PO ONETIME [facility] Stop: 05/11/19 16:00 Last Admin: 05/11/19 09:25 Dose: 10 mg Oxycodone/Acetaminophen (Percocet 325-5 Mg) 1 - 2 tab PO Q4H PRN PRN Reason: Pain Last Admin: 05/12/19 05:29 Dose: 2 tab Pregabalin (Lyrica) 50 mg PO ONETIME [facility] Stop: 05/11/19 16:00 Last Admin: 05/11/19 09:25 Dose: 50 mg Propofol (Diprivan 20 Ml) Confirm Administered Dose 400 mg .ROUTE .STK-MED ONE Stop: 05/11/19 09:47 Propofol (Diprivan 20 Ml) Confirm Administered Dose 200 mg .ROUTE .STK-MED ONE Stop: 05/11/19 11:11 Ropivacaine (Naropin 0.5%) Confirm Administered Dose 30 ml .ROUTE .STK-MED ONE Stop: 05/11/19 07:34 Scopolamine (Transderm-Scop) 1.5 mg TRDERM ONETIME ONE Stop: 05/11/19 09:05 Last Admin: 05/11/19 09:27 Dose: 1.5 mg Sodium Chloride (Saline Flush) 10 ml FLUSH ASDIRECTED PRN PRN Reason: Keep Vein Open Stop: 05/08/19 18:00 Sodium Chloride (Saline Flush) 10 ml FLUSH ASDIRECTED PRN PRN Reason: Keep Vein Open Stop: 05/11/19 18:00 Tranexamic Acid (Cyklokapron) Confirm Administered Dose 1,000 mg .ROUTE .STK- MED ONE Stop: 05/11/19 08:41 Last Admin: 05/11/19 11:18 Dose: 1,000 mg Vancomycin HCl (Vancomycin) Confirm Administered Dose 1 gm .ROUTE .STK-MED ONE Stop: 05/11/19 08:41 Last Admin: 05/11/19 11:12 Dose: 1 gm - Exam Wound/Incisions: Dressing Dry and Intact General: Alert, Cooperative, No Acute Distress Lungs: Normal Respiratory Effort Extremities: Other (NVS intact for BLE. Navid's negative.) Sepsis Event Note - Evaluation Sepsis Screening Result: No Definite Risk - Focused Exam Vital Signs: Vital Signs Temp Pulse Resp BP Pulse Ox 05/12/19 08:55 82 123/62 05/12/19 08:17 97.0 F 82 16 123/62 94 L 05/12/19 03:49 97.9 F 78 16 103/70 100 05/12/19 00:43 97.9 F 73 18 95/64 99 Date Exam was Performed: 05/12/19 Time Exam was Performed: 09:38 - Problem List Review Problem List Initiated/Reviewed/Updated: Yes - My Orders Last 24 Hours: Active Orders 24 hr Category Date Time Status Communication Order [RC] ASDIRECTED Care 05/12/19 09:33 Active Notify Provider [RC] ASDIRECTED Care 05/11/19 10:16 Active Oxygen Therapy [RC] ASDIRECTED Care 05/11/19 10:16 Active RT Aerosol Therapy [RC] ASDIRECTED Care 05/11/19 10:18 Active Ready for Discharge [RC] PER UNIT ROUTINE Care 05/12/19 09:24 Active Regular Diet [DIET] Diet 05/11/19 Lunch Active Cholecalciferol (Vitamin D3) [Vitamin D3] Med 05/11/19 19:00 Active 5,000 unit PO DAILY@190 Citalopram [Celexa] Med 05/11/19 19:00 Active 40 mg PO DAILY@190 Docusate Sodium [Colace] Med 05/11/19 21:00 Active 100 mg PO BID Famotidine [Pepcid] Med 05/11/19 21:00 Active 20 mg PO Q12H Ferrous Sulfate Med 05/11/19 19:00 Active 324 mg PO DAILY@1900 Ketorolac [Toradol] Med 05/11/19 13:00 Active 15 mg IVPUSH Q6H PRN Levothyroxine [Synthroid] Med 05/12/19 06:00 Active 50 mcg PO ACBREAKFAST Metoprolol Succinate [Toprol XL] Med 05/12/19 09:00 Active 25 mg PO DAILY Rivaroxaban [Xarelto] Med 05/12/19 09:00 Active 10 mg PO DAILY Simvastatin [Zocor] Med 05/11/19 21:00 Active 10 mg PO BEDTIME ceFAZolin [Ancef] 2 gm Med 05/11/19 17:45 Active Premix Bag 1 bag IV Q8H lisinopriL [Prinivil] Med 05/11/19 19:00 Active 10 mg PO DAILY@190 oxyCODONE Med 05/12/19 09:20 Active 5 - 10 mg PO Q4H PRN Medication Orders Bisacodyl (Dulcolax) 5 mg PO DAILY PRN PRN Reason: Constipation Cholecalciferol (Vitamin D3) 5,000 unit PO DAILY@1899 [facility] Last Admin: 05/11/19 18:01 Dose: 5,000 unit Citalopram Hydrobromide (Celexa) 40 mg PO DAILY@1899 [facility] Last Admin: 05/11/19 18:00 Dose: 40 mg Cyclobenzaprine HCl (Flexeril) 10 mg PO TID PRN PRN Reason: Spasms Last Admin: 05/12/19 08:55 Dose: 10 mg Docusate Sodium (Colace) 100 mg PO BID [facility] Last Admin: 05/12/19 08:55 Dose: 100 mg Admin: 05/11/19 20:31 Dose: 100 mg Famotidine (Pepcid) 20 mg PO Q12H [facility] Last Admin: 05/12/19 08:55 Dose: 20 mg Admin: 05/11/19 20:31 Dose: 20 mg Ferrous Sulfate (Ferrous Sulfate) 324 mg PO DAILY@1900 [facility] Last Admin: 05/11/19 18:01 Dose: 324 mg Cefazolin Sodium/Dextrose 2 gm (/ Premix) 50 mls @ 100 mls/hr IV Q8H [facility] Stop: 05/12/19 10:14 Last Admin: 05/12/19 09:08 Dose: Infusion: 05/12/19 01:15 Dose: 100 mls/hr Admin: 05/12/19 00:45 Dose: 100 mls/hr Infusion: 05/11/19 17:49 Dose: 100 mls/hr Admin: 05/11/19 17:19 Dose: 100 mls/hr Ketorolac Tromethamine (Toradol) 15 mg IVPUSH Q6H PRN PRN Reason: Pain Last Admin: 05/12/19 03:42 Dose: 15 mg Admin: 05/11/19 14:20 Dose: 15 mg Levothyroxine Sodium (Synthroid) 50 mcg PO ACBREAKFAST [facility] Last Admin: 05/12/19 05:30 Dose: 50 mcg Lisinopril (Prinivil) 10 mg PO DAILY@1900 [facility] Last Admin: 05/11/19 18:01 Dose: Magnesium Hydroxide (Milk Of Magnesia) 30 ml PO BID PRN PRN Reason: Constipation Metoprolol Succinate (Toprol Xl) 25 mg PO DAILY [facility] Last Admin: 05/12/19 08:55 Dose: 25 mg Morphine Sulfate (Morphine) 2 mg IVPUSH Q2H PRN PRN Reason: Breakthrough Pain Naloxone HCl (Narcan) 0.1 mg IVPUSH Q5M PRN PRN Reason: Oversedation Ondansetron HCl (Zofran) 4 mg IVPUSH Q6H PRN PRN Reason: Nausea/Vomiting Last Admin: 05/11/19 14:18 Dose: 4 mg Oxycodone HCl (Oxycodone) 5 - 10 mg PO Q4H PRN PRN Reason: Pain Rivaroxaban (Xarelto) 10 mg PO DAILY [facility] Last Admin: 05/12/19 08:56 Dose: 10 mg Senna (Senna) 8.6 mg PO BID PRN PRN Reason: Constipation Simvastatin (Zocor) 10 mg PO BEDTIME [facility] Last Admin: 05/11/19 20:31 Dose: 10 mg - Assessment Assessment (Free Text/Narrative):: POD#1 - left TKA - Plan Plan (Free Text/Narrative):: 1. Hgb 10.8. 2. AST, ALT elevated. Perc d/c and oxycodone initiated. Pt to f/u with PCP. 3. Xarelto 10mg PO daily due to hx gastric ulcer. 4. Discharge to home today. The pt's case was discussed with Dr. Jeff.
--- NOTE | 2019-05-12 09:42 | PCM.DCSUM1 ---
Discharge Summary - Hospital Course Brief History: Asha is a 54 yo female who underwent left TKA with Dr. Jeff on 05-11-2019. The procedure was completed under spinal anesthesia with sedation. The pt tolerated the procedure well and was admitted to the Medical- Surgical Unit. Medical management was provided by the Hospitalist service. The pt's Hospital course was remarkable for elevated LFTs which will be followed as an outpt by pt's PCP. The pt's Hgb on POD#1 was 10.8. On POD#1, Xarelto 10mg PO daily was initiated for VTE prophylaxis. SCDs and TEDs were also ordered. A Mepilex dressing was placed at the incision site at the time of surgery and remained clean and dry. The pt participated in P.T. and O.T. and progressed well. The pt was allowed to WBAT and used a FWW for mobility. On POD#1, the pt was deemed appropriate to discharge to home. - Discharge Data Discharge Date: 05/12/19 Discharge Disposition: Home, Self-Care 01 Condition: Good - Referral to Home Health Primary Care Physician: JANAY Hall - Patient Summary/Data Consults: Consultations 05/11/19 06:35 PT Evaluation and Treatment [CONS] Routine 05/11/19 06:36 Consult to Physician [CONS] Routine OT Evaluation and Treatment [CONS] Routine - Patient Instructions Diet: Usual Diet as Tolerated Activity: Apply Ice, As Tolerated, Elevate Extremity, Full Weight Bearing Driving: Do Not Drive Showering/Bathing: May Shower Wound/Incision Care: Keep Operative Site/Wound Site Clean and Dry, Do NOT Change Dressing Notify Provider of: Fever, Increased Pain, Swelling and Redness, Drainage, Nausea and/or Vomiting Other/Special Instructions: Please get up and moving around EVERY HOUR while awake. This helps to prevent blood clots. Please use your walker and have help with mobility as needed. Take a short walk in your home every hour while awake. Please take the Xarelto blood thinner medication daily as directed. At home, please complete the exercises that you learned during the Hospital stay. Schedule for physical therapy. Use the pain medication as needed. The medication may cause drowsiness and constipation. Contact your primary care provider for instructions if you are constipated. You may use a stool softener like docusate sodium or Colace 100mg twice daily and/or a laxative like Miralax daily for constipation. Increase your water and fiber intake while you are using the pain medication. Discontinue use of the pain medication as soon as able. Please do not use other medications that may cause drowsiness (other pain medications, anxiety pills, cold medications, sleeping pills, etc) while using the prescription pain medication. Do not use alcohol while using the pain medication. Your liver tests were a bit elevated during your Hospital stay. Please hold off on use of acetaminophen or Tylenol at this time and please have your liver tests re-evaluated with your primary care provider. At this time, please do not use ibuprofen (Motrin, Advil) or naproxen (Aleve) for pain management as you are using the Xarelto. When the Xarelto course is completed in 4 to 6 weeks, you could use ibuprofen or naproxen for pain management (if this is allowed by your primary care provider). Wear the SAW hose during the day and you may remove these at night. Elevate the limb to decrease swelling. Place ice to the area often. Place a towel between your skin and the blue pad. Use the incentive spirometer often. Take deep breaths throughout the day. Please keep the dressing in place until follow-up. Notify the Clinic if the dressing becomes saturated. Increase your protein intake while you are healing. If you have diabetes, please closely monitor your blood sugars and notify your primary care provider with abnormal values. Elevated blood sugars increases the risk of infection. Call the Clinic with questions or concerns - [phone]. - Discharge Plan *PRESCRIPTION DRUG MONITORING PROGRAM REVIEWED*: No *COPY OF PRESCRIPTION DRUG MONITORING REPORT IN PATIENT TOMÁS: No Prescriptions/Med Rec: Cyclobenzaprine [Flexeril] 5 mg PO BID PRN #20 tablet PRN Reason: Spasms oxyCODONE 5 - 10 mg PO Q4H PRN #60 tablet PRN Reason: Pain Rivaroxaban [Xarelto] 10 mg PO DAILY #30 tablet Home Medications: Home Meds Citalopram Hydrobromide [Celexa] 40 mg PO DAILY 07/07/16 [History] Lisinopril 10 mg PO DAILY 07/07/16 [History] atorvaSTATin Calcium [Atorvastatin Calcium] 10 mg PO DAILY 07/07/16 [History] Levothyroxine [Synthroid] 50 mcg PO DAILY 11/04/18 [History] Metoprolol Succinate 25 mg PO DAILY 11/04/18 [History] Ondansetron HCl [Zofran] 4 mg PO DAILY PRN 11/04/18 [History] metFORMIN HCl [Metformin HCl ER] 500 mg PO DAILY 11/04/18 [History] Cholecalciferol (Vitamin D3) [Vitamin D3] 5,000 unit PO DAILY 04/28/19 [History] Ferrous Sulfate [Iron] 325 mg PO DAILY 04/28/19 [History] Cyclobenzaprine [Flexeril] 5 mg PO BID PRN #20 tablet 05/12/19 [Rx] Docusate Sodium [Colace] 100 mg PO BID cap 05/12/19 [Rx] Famotidine [Pepcid] 20 mg PO Q12H tablet 05/12/19 [Rx] Magnesium Hydroxide [Milk of Magnesia] 30 ml PO BID PRN cup 05/12/19 [Rx] Rivaroxaban [Xarelto] 10 mg PO DAILY #30 tablet 05/12/19 [Rx] Sennosides [Senna] 8.6 mg PO BID PRN tablet 05/12/19 [Rx] bisacodyL [Dulcolax] 5 mg PO DAILY PRN tablet 05/12/19 [Rx] oxyCODONE 5 - 10 mg PO Q4H PRN #60 tablet 05/12/19 [Rx] Referrals: Abi Coy, RAUL [Physician Customer Service Associate] - - Discharge Summary/Plan Comment DC Time >30 min.: No - Patient Data Vitals - Most Recent: Last Vital Signs Temp 97.0 F 05/12/19 08:17 Pulse 82 05/12/19 08:55 Resp 16 05/12/19 08:17 BP 123/62 05/12/19 08:55 Pulse Ox 94 L 05/12/19 08:17 Weight - Most Recent: 251 lb 3.2 oz I&O - Last 24 hours: Intake & Output 05/11/19 05/12/19 05/12/19 22:59 06:59 14:59 Intake Total 1020 16 Output Total 200 950 Balance 820 -934 Lab Results - Last 24 hrs: Laboratory Results - last 24 hr 05/11/19 05/12/19 05/12/19 Range/Units 11:55 05:55 05:55 WBC 5.98 (3.98-10.04) K/mm3 RBC 3.80 L (3.98-5.22) M/mm3 Hgb 10.8 L (11.2-15.7) gm/dl Hct 32.9 L (34.1-44.9) % MCV 86.6 D (79.4-94.8) fl MCH 28.4 (25.6-32.2) pg MCHC 32.8 (32.2-35.5) g/dl RDW Std Deviation 42.2 (36.4-46.3) fL Plt Count 180 L (182-369) K/mm3 MPV 10.7 (9.4-12.3) fl Sodium 141 (136-145) mEq/L Potassium 4.2 (3.5-5.1) mEq/L Chloride 105 (98-107) mEq/L Carbon Dioxide 27 (21-32) mEq/L Anion Gap 13.2 (5-15) BUN 17 (7-18) mg/dL Creatinine 0.9 (0.55-1.02) mg/dL Est Cr Clr Drug Dosing 57.74 mL/min Estimated GFR (MDRD) > 60 (>60) mL/min BUN/Creatinine Ratio 18.9 H (14-18) Glucose 102 (74-106) mg/dL POC Glucose 89 (70-105) mg/dL Calcium 8.9 (8.5-10.1) mg/dL Total Bilirubin 0.5 (0.2-1.0) mg/dL AST 53 H (15-37) U/L ALT 104 H (14-59) U/L Alkaline Phosphatase 74 (46-116) U/L Total Protein 6.1 L (6.4-8.2) g/dl Albumin 3.0 L (3.4-5.0) g/dl Globulin 3.1 gm/dL Albumin/Globulin Ratio 1.0 (1-2) Med Orders - Current: Current Medications Bisacodyl (Dulcolax) 5 mg PO DAILY PRN PRN Reason: Constipation Cholecalciferol (Vitamin D3) 5,000 unit PO DAILY@1900 [facility] Last Admin: 05/11/19 18:01 Dose: 5,000 unit Citalopram Hydrobromide (Celexa) 40 mg PO DAILY@1900 [facility] Last Admin: 05/11/19 18:00 Dose: 40 mg Cyclobenzaprine HCl (Flexeril) 10 mg PO TID PRN PRN Reason: Spasms Last Admin: 05/12/19 08:55 Dose: 10 mg Docusate Sodium (Colace) 100 mg PO BID [facility] Last Admin: 05/12/19 08:55 Dose: 100 mg Famotidine (Pepcid) 20 mg PO Q12H [facility] Last Admin: 05/12/19 08:55 Dose: 20 mg Ferrous Sulfate (Ferrous Sulfate) 324 mg PO DAILY@1899 [facility] Last Admin: 05/11/19 18:01 Dose: 324 mg Cefazolin Sodium/Dextrose 2 gm (/ Premix) 50 mls @ 100 mls/hr IV Q8H [facility] Stop: 05/12/19 10:14 Last Admin: 05/12/19 09:08 Dose: Not Given Ketorolac Tromethamine (Toradol) 15 mg IVPUSH Q6H PRN PRN Reason: Pain Last Admin: 05/12/19 03:42 Dose: 15 mg Levothyroxine Sodium (Synthroid) 50 mcg PO ACBREAKFAST [facility] Last Admin: 05/12/19 05:30 Dose: 50 mcg Lisinopril (Prinivil) 10 mg PO DAILY@1899 [facility] Last Admin: 05/11/19 18:01 Dose: Not Given Magnesium Hydroxide (Milk Of Magnesia) 30 ml PO BID PRN PRN Reason: Constipation Metoprolol Succinate (Toprol Xl) 25 mg PO DAILY [facility] Last Admin: 05/12/19 08:55 Dose: 25 mg Morphine Sulfate (Morphine) 2 mg IVPUSH Q2H PRN PRN Reason: Breakthrough Pain Naloxone HCl (Narcan) 0.1 mg IVPUSH Q5M PRN PRN Reason: Oversedation Ondansetron HCl (Zofran) 4 mg IVPUSH Q6H PRN PRN Reason: Nausea/Vomiting Last Admin: 05/11/19 14:18 Dose: 4 mg Oxycodone HCl (Oxycodone) 5 - 10 mg PO Q4H PRN PRN Reason: Pain Rivaroxaban (Xarelto) 10 mg PO DAILY [facility] Last Admin: 05/12/19 08:56 Dose: 10 mg Senna (Senna) 8.6 mg PO BID PRN PRN Reason: Constipation Simvastatin (Zocor) 10 mg PO BEDTIME [facility] Last Admin: 05/11/19 20:31 Dose: 10 mg Discontinued Medications Acetaminophen (Tylenol) 975 mg PO ONETIME [facility] Stop: 05/11/19 16:00 Last Admin: 05/11/19 09:25 Dose: 975 mg Albuterol (Proventil Neb Soln) 2.5 mg NEB ONETIME PRN PRN Reason: asthma Stop: 05/11/19 13:00 Bupivacaine HCl (Sensorcaine-Mpf 0.25%) Confirm Administered Dose 30 ml .ROUTE .STK-MED ONE Stop: 05/11/19 08:42 Last Admin: 05/11/19 11:09 Dose: 30 ml Cefazolin Sodium (Ancef) Confirm Administered Dose 2 gm .ROUTE .STK-MED ONE Stop: 05/11/19 08:41 Last Admin: 05/11/19 11:03 Dose: 2 gm Cefazolin Sodium (Ancef) Confirm Administered Dose 2 gm .ROUTE .STK-MED ONE Stop: 05/11/19 09:47 Morphine Sulfate 8 mg/Epinephrine HCl 0.3 mg/Cefuroxime Sodium 750 mg/Ketorolac Tromethamine 30 mg/Sodium Chloride 7.9 ml 0 mg .XX ASDIRECTED PRN PRN Reason: Pain Stop: 05/11/19 12:00 Last Admin: 05/11/19 11:09 Dose: 788.3 mg Diphenhydramine HCl (Benadryl) 25 mg IVPUSH Q6H PRN PRN Reason: pruritis Stop: 05/11/19 13:00 Ephedrine Sulfate (Ephedrine Sulfate) 5 mg IVPUSH ASDIRECTED PRN PRN Reason: Hypotension Stop: 05/11/19 13:00 Epinephrine HCl (Adrenalin) Confirm Administered Dose 1 mg .ROUTE .STK-MED ONE Stop: 05/11/19 07:34 Fentanyl (Sublimaze) Confirm Administered Dose 100 mcg .ROUTE .STK-MED ONE Stop: 05/11/19 09:47 Fentanyl (Sublimaze) 50 mcg IVPUSH Q5M PRN PRN Reason: Pain Stop: 05/11/19 13:00 Last Admin: 05/11/19 12:17 Dose: 50 mcg Hydromorphone HCl (Dilaudid) 0.5 mg IVPUSH Q15M PRN PRN Reason: Pain (severe 7-10) Stop: 05/11/19 13:00 Lactated Ringer's (Ringers, Lactated) 1,000 mls @ 125 mls/hr IV ASDIRECTED [facility] Stop: 05/08/19 23:00 Lactated Ringer's (Ringers, Lactated) 1,000 mls @ 125 mls/hr IV ASDIRECTED [facility] Stop: 05/11/19 23:00 Last Admin: 05/11/19 09:15 Dose: 125 mls/hr Lidocaine HCl (Xylocaine-Mpf 1%) Confirm Administered Dose 6 mls @ as directed .ROUTE .STK-MED ONE Stop: 05/11/19 09:47 Lactated Ringer's (Ringers, Lactated) Confirm Administered Dose 2,000 mls @ as directed .ROUTE .STK-MED ONE Stop: 05/11/19 09:47 Phenylephrine HCl 1 mg/ Sodium (Chloride) 10.1 mls @ 1 mls/sec IV TITRATE [facility]; Protocol Stop: 05/11/19 13:00 Iodine (Iodine 2% Mild Tincture) Confirm Administered Dose 30 ml .ROUTE .STK- MED ONE Stop: 05/11/19 08:42 Last Admin: 05/11/19 11:00 Dose: 18 ml Ketamine HCl (Ketalar) Confirm Administered Dose 500 mg .ROUTE .STK-MED ONE Stop: 05/11/19 09:48 Ketorolac Tromethamine (Toradol) Confirm Administered Dose 30 mg .ROUTE .STK- MED ONE Stop: 05/11/19 09:47 Lidocaine/Sodium Bicarbonate (Buffered Lidocaine 1% In Ns 8.4%) 0.25 ml IDERM ONETIME PRN PRN Reason: Prior to IV Start Stop: 05/08/19 18:00 Lidocaine/Sodium Bicarbonate (Buffered Lidocaine 1% In Ns 8.4%) 0.25 ml IDERM ONETIME PRN PRN Reason: Prior to IV Start Stop: 05/11/19 18:00 Miscellaneous Medication (Phenylephrine 1 Mg/10 Ml-Ns) Confirm Administered Dose 1 mg IV .STK-MED ONE Stop: 05/11/19 09:47 Ondansetron HCl (Zofran) Confirm Administered Dose 4 mg .ROUTE .STK-MED ONE Stop: 05/11/19 09:47 Ondansetron HCl (Zofran) 4 mg IVPUSH ONETIME PRN PRN Reason: Nausea/Vomiting Stop: 05/11/19 13:00 Oxycodone HCl (Oxycontin) 10 mg PO ONETIME [facility] Stop: 05/11/19 16:00 Last Admin: 05/11/19 09:25 Dose: 10 mg Oxycodone/Acetaminophen (Percocet 325-5 Mg) 1 - 2 tab PO Q4H PRN PRN Reason: Pain Last Admin: 05/12/19 05:29 Dose: 2 tab Pregabalin (Lyrica) 50 mg PO ONETIME [facility] Stop: 05/11/19 16:00 Last Admin: 05/11/19 09:25 Dose: 50 mg Propofol (Diprivan 20 Ml) Confirm Administered Dose 400 mg .ROUTE .STK-MED ONE Stop: 05/11/19 09:47 Propofol (Diprivan 20 Ml) Confirm Administered Dose 200 mg .ROUTE .STK-MED ONE Stop: 05/11/19 11:11 Ropivacaine (Naropin 0.5%) Confirm Administered Dose 30 ml .ROUTE .STK-MED ONE Stop: 05/11/19 07:34 Scopolamine (Transderm-Scop) 1.5 mg TRDERM ONETIME ONE Stop: 05/11/19 09:05 Last Admin: 05/11/19 09:27 Dose: 1.5 mg Sodium Chloride (Saline Flush) 10 ml FLUSH ASDIRECTED PRN PRN Reason: Keep Vein Open Stop: 05/08/19 18:00 Sodium Chloride (Saline Flush) 10 ml FLUSH ASDIRECTED PRN PRN Reason: Keep Vein Open Stop: 05/11/19 18:00 Tranexamic Acid (Cyklokapron) Confirm Administered Dose 1,000 mg .ROUTE .STK- MED ONE Stop: 05/11/19 08:41 Last Admin: 05/11/19 11:18 Dose: 1,000 mg Vancomycin HCl (Vancomycin) Confirm Administered Dose 1 gm .ROUTE .STK-MED ONE Stop: 05/11/19 08:41 Last Admin: 05/11/19 11:12 Dose: 1 gm
[2019-05-12] MEDS ORDERED: oxyCODONE 5 MG Tab PO STA (11:10)
[2019-05-12] MEDS ORDERED: Ketorolac 30 MG/ML SDV IM STA (11:11)
[2019-05-12] MEDS ORDERED: Acetaminophen 325 MG Tab PO ONE (13:03)
[2019-05-12] MEDS: Cholecalciferol (Vitamin D3) 5,000 UNIT Tab PO SCH (18:51)
[2019-05-12] MEDS: Lisinopril 10 MG Tab PO SCH (18:52)
[2019-05-12] MEDS: Ferrous Sulfate 324 MG Tab.EC PO SCH (18:52)
[2019-05-12] MEDS: Citalopram 20 MG Tab PO SCH (18:55)
[2019-05-12] MEDS: Simvastatin 10 MG Tab PO SCH (21:58)
[2019-05-13] MEDS: Levothyroxine 50 MCG Tab PO SCH (06:35)
[2019-05-13] MEDS: oxyCODONE 5 MG Tab PO PRN ×2 (06:36→10:08)
[2019-05-13] MEDS: Cyclobenzaprine 10 MG Tab PO PRN (06:37)
[2019-05-13] MEDS: Docusate Sodium 100 MG Cap PO SCH (10:06)
[2019-05-13] MEDS: Rivaroxaban 10 MG Tab PO SCH (10:06)
[2019-05-13] MEDS: Metoprolol Succinate 25 MG Tab.ER PO SCH (10:06)
[2019-05-13] MEDS: Famotidine 20 MG Tab PO SCH (10:06)
[2019-05-13 10:12] VITALS: BP 133/70
[2019-05-13] MEDS ORDERED: oxyCODONE 5 MG Tab PO STA (12:08)
[2019-05-13] MEDS ORDERED: oxyCODONE 5 MG Tab PO PRN ×2 (12:10→12:11)
[2019-05-13 16:33] VITALS: PULSE 92
--- NOTE | 2019-05-15 07:54 | PCM.SURGPN ---
- General Info Date of Service: 05/13/19 POD#: 2 Functional Status: Reports: Tolerating Diet, Ambulating, Urinating, Incentive Spirometry, Other (The pt had difficulty with pain control and remain in Hospital overnight.) - Patient Data Vitals - Most Recent: Last Vital Signs Temp 98.3 F 05/13/19 09:00 Pulse 93 05/13/19 10:06 Resp 16 05/13/19 09:00 BP 133/70 05/13/19 10:06 Pulse Ox 98 05/13/19 09:00 Weight - Most Recent: 250 lb 8 oz Med Orders - Current: Current Medications Discontinued Medications Acetaminophen (Tylenol) 975 mg PO ONETIME [facility] Stop: 05/11/19 16:00 Last Admin: 05/11/19 09:25 Dose: 975 mg Acetaminophen (Tylenol) 1,000 mg PO NOW ONE Stop: 05/12/19 13:04 Last Admin: 05/12/19 13:17 Dose: 1,000 mg Albuterol (Proventil Neb Soln) 2.5 mg NEB ONETIME PRN PRN Reason: asthma Stop: 05/11/19 13:00 Bisacodyl (Dulcolax) 5 mg PO DAILY PRN PRN Reason: Constipation Bupivacaine HCl (Sensorcaine-Mpf 0.25%) Confirm Administered Dose 30 ml .ROUTE .STK-MED ONE Stop: 05/11/19 08:42 Last Admin: 05/11/19 11:09 Dose: 30 ml Cefazolin Sodium (Ancef) Confirm Administered Dose 2 gm .ROUTE .STK-MED ONE Stop: 05/11/19 08:41 Last Admin: 05/11/19 11:03 Dose: 2 gm Cefazolin Sodium (Ancef) Confirm Administered Dose 2 gm .ROUTE .STK-MED ONE Stop: 05/11/19 09:47 Cholecalciferol (Vitamin D3) 5,000 unit PO DAILY@1900 [facility] Last Admin: 05/12/19 18:51 Dose: 5,000 unit Citalopram Hydrobromide (Celexa) 40 mg PO DAILY@1900 [facility] Last Admin: 05/12/19 18:55 Dose: 40 mg Morphine Sulfate 8 mg/Epinephrine HCl 0.3 mg/Cefuroxime Sodium 750 mg/Ketorolac Tromethamine 30 mg/Sodium Chloride 7.9 ml 0 mg .XX ASDIRECTED PRN PRN Reason: Pain Stop: 05/11/19 12:00 Last Admin: 05/11/19 11:09 Dose: 788.3 mg Cyclobenzaprine HCl (Flexeril) 10 mg PO TID PRN PRN Reason: Spasms Last Admin: 05/13/19 06:37 Dose: 10 mg Diphenhydramine HCl (Benadryl) 25 mg IVPUSH Q6H PRN PRN Reason: pruritis Stop: 05/11/19 13:00 Docusate Sodium (Colace) 100 mg PO BID [facility] Last Admin: 05/13/19 10:06 Dose: 100 mg Ephedrine Sulfate (Ephedrine Sulfate) 5 mg IVPUSH ASDIRECTED PRN PRN Reason: Hypotension Stop: 05/11/19 13:00 Epinephrine HCl (Adrenalin) Confirm Administered Dose 1 mg .ROUTE .STK-MED ONE Stop: 05/11/19 07:34 Famotidine (Pepcid) 20 mg PO Q12H [facility] Last Admin: 05/13/19 10:06 Dose: 20 mg Fentanyl (Sublimaze) Confirm Administered Dose 100 mcg .ROUTE .STK-MED ONE Stop: 05/11/19 09:47 Fentanyl (Sublimaze) 50 mcg IVPUSH Q5M PRN PRN Reason: Pain Stop: 05/11/19 13:00 Last Admin: 05/11/19 12:17 Dose: 50 mcg Ferrous Sulfate (Ferrous Sulfate) 324 mg PO DAILY@1900 [facility] Last Admin: 05/12/19 18:52 Dose: 324 mg Hydromorphone HCl (Dilaudid) 0.5 mg IVPUSH Q15M PRN PRN Reason: Pain (severe 7-10) Stop: 05/11/19 13:00 Lactated Ringer's (Ringers, Lactated) 1,000 mls @ 125 mls/hr IV ASDIRECTED [facility] Stop: 05/08/19 23:00 Lactated Ringer's (Ringers, Lactated) 1,000 mls @ 125 mls/hr IV ASDIRECTED [facility] Stop: 05/11/19 23:00 Last Admin: 05/11/19 09:15 Dose: 125 mls/hr Cefazolin Sodium/Dextrose 2 gm (/ Premix) 50 mls @ 100 mls/hr IV Q8H [facility] Stop: 05/12/19 10:14 Last Admin: 05/12/19 09:08 Dose: Not Given Lidocaine HCl (Xylocaine-Mpf 1%) Confirm Administered Dose 6 mls @ as directed .ROUTE .STK-MED ONE Stop: 05/11/19 09:47 Lactated Ringer's (Ringers, Lactated) Confirm Administered Dose 2,000 mls @ as directed .ROUTE .STK-MED ONE Stop: 05/11/19 09:47 Phenylephrine HCl 1 mg/ Sodium (Chloride) 10.1 mls @ 1 mls/sec IV TITRATE [facility]; Protocol Stop: 05/11/19 13:00 Iodine (Iodine 2% Mild Tincture) Confirm Administered Dose 30 ml .ROUTE .STK- MED ONE Stop: 05/11/19 08:42 Last Admin: 05/11/19 11:00 Dose: 18 ml Ketamine HCl (Ketalar) Confirm Administered Dose 500 mg .ROUTE .STK-MED ONE Stop: 05/11/19 09:48 Ketorolac Tromethamine (Toradol) 15 mg IVPUSH Q6H PRN PRN Reason: Pain Last Admin: 05/12/19 15:11 Dose: 15 mg Ketorolac Tromethamine (Toradol) Confirm Administered Dose 30 mg .ROUTE .STK- MED ONE Stop: 05/11/19 09:47 Ketorolac Tromethamine (Toradol) 30 mg IM STAT STA Stop: 05/12/19 11:12 Last Admin: 05/12/19 11:20 Dose: 30 mg Levothyroxine Sodium (Synthroid) 50 mcg PO ACBREAKFAST [facility] Last Admin: 05/13/19 06:35 Dose: 50 mcg Lidocaine/Sodium Bicarbonate (Buffered Lidocaine 1% In Ns 8.4%) 0.25 ml IDERM ONETIME PRN PRN Reason: Prior to IV Start Stop: 05/08/19 18:00 Lidocaine/Sodium Bicarbonate (Buffered Lidocaine 1% In Ns 8.4%) 0.25 ml IDERM ONETIME PRN PRN Reason: Prior to IV Start Stop: 05/11/19 18:00 Lisinopril (Prinivil) 10 mg PO DAILY@1900 [facility] Last Admin: 05/12/19 18:52 Dose: 10 mg Magnesium Hydroxide (Milk Of Magnesia) 30 ml PO BID PRN PRN Reason: Constipation Metoprolol Succinate (Toprol Xl) 25 mg PO DAILY [facility] Last Admin: 05/13/19 10:06 Dose: 25 mg Miscellaneous Medication (Phenylephrine 1 Mg/10 Ml-Ns) Confirm Administered Dose 1 mg IV .STK-MED ONE Stop: 05/11/19 09:47 Morphine Sulfate (Morphine) 2 mg IVPUSH Q2H PRN PRN Reason: Breakthrough Pain Last Admin: 05/12/19 19:46 Dose: 2 mg Naloxone HCl (Narcan) 0.1 mg IVPUSH Q5M PRN PRN Reason: Oversedation Ondansetron HCl (Zofran) 4 mg IVPUSH Q6H PRN PRN Reason: Nausea/Vomiting Last Admin: 05/11/19 14:18 Dose: 4 mg Ondansetron HCl (Zofran) Confirm Administered Dose 4 mg .ROUTE .STK-MED ONE Stop: 05/11/19 09:47 Ondansetron HCl (Zofran) 4 mg IVPUSH ONETIME PRN PRN Reason: Nausea/Vomiting Stop: 05/11/19 13:00 Oxycodone HCl (Oxycontin) 10 mg PO ONETIME [facility] Stop: 05/11/19 16:00 Last Admin: 05/11/19 09:25 Dose: 10 mg Oxycodone HCl (Oxycodone) 5 - 10 mg PO Q4H PRN PRN Reason: Pain Last Admin: 05/13/19 10:08 Dose: 10 mg Oxycodone HCl (Oxycodone) 5 mg PO STAT STA Stop: 05/12/19 11:11 Last Admin: 05/12/19 11:19 Dose: 5 mg Oxycodone HCl (Oxycodone) 5 mg PO ONETIME [facility] Stop: 05/13/19 12:09 Last Admin: 05/13/19 12:18 Dose: 5 mg Oxycodone HCl (Oxycodone) 10 - 15 mg PO Q4H PRN PRN Reason: Pain Oxycodone HCl (Oxycodone) 5 mg PO Q4H PRN PRN Reason: Pain Oxycodone/Acetaminophen (Percocet 325-5 Mg) 1 - 2 tab PO Q4H PRN PRN Reason: Pain Last Admin: 05/12/19 05:29 Dose: 2 tab Pregabalin (Lyrica) 50 mg PO ONETIME [facility] Stop: 05/11/19 16:00 Last Admin: 05/11/19 09:25 Dose: 50 mg Propofol (Diprivan 20 Ml) Confirm Administered Dose 400 mg .ROUTE .STK-MED ONE Stop: 05/11/19 09:47 Propofol (Diprivan 20 Ml) Confirm Administered Dose 200 mg .ROUTE .STK-MED ONE Stop: 05/11/19 11:11 Rivaroxaban (Xarelto) 10 mg PO DAILY [facility] Last Admin: 05/13/19 10:06 Dose: 10 mg Ropivacaine (Naropin 0.5%) Confirm Administered Dose 30 ml .ROUTE .STK-MED ONE Stop: 05/11/19 07:34 Scopolamine (Transderm-Scop) 1.5 mg TRDERM ONETIME ONE Stop: 05/11/19 09:05 Last Admin: 05/11/19 09:27 Dose: 1.5 mg Senna (Senna) 8.6 mg PO BID PRN PRN Reason: Constipation Simvastatin (Zocor) 10 mg PO BEDTIME [facility] Last Admin: 05/12/19 21:58 Dose: 10 mg Sodium Chloride (Saline Flush) 10 ml FLUSH ASDIRECTED PRN PRN Reason: Keep Vein Open Stop: 05/08/19 18:00 Sodium Chloride (Saline Flush) 10 ml FLUSH ASDIRECTED PRN PRN Reason: Keep Vein Open Stop: 05/11/19 18:00 Tapentadol (Nucynta) 50 mg PO ONETIME ONE Stop: 05/12/19 13:05 Last Admin: 05/12/19 13:17 Dose: 50 mg Tranexamic Acid (Cyklokapron) Confirm Administered Dose 1,000 mg .ROUTE .STK- MED ONE Stop: 05/11/19 08:41 Last Admin: 05/11/19 11:18 Dose: 1,000 mg Vancomycin HCl (Vancomycin) Confirm Administered Dose 1 gm .ROUTE .STK-MED ONE Stop: 05/11/19 08:41 Last Admin: 05/11/19 11:12 Dose: 1 gm - Exam Wound/Incisions: Dressing Dry and Intact General: Alert, Cooperative, No Acute Distress Lungs: Normal Respiratory Effort Extremities: Other (NVS intact for BLE. Navid's negative.) Sepsis Event Note - Evaluation Sepsis Screening Result: No Definite Risk - Problem List Review Problem List Initiated/Reviewed/Updated: Yes - Assessment Assessment (Free Text/Narrative):: POD#2 - left TKA - Plan Plan (Free Text/Narrative):: 1. The pt remained in Hospital overnight due to difficulty with pain control. She is now appropriate for d/c to home. 2. Xarelto 10mg PO daily. Frequent mobility, TEDs. 3. Outpatient therapy. The pt was evaluated by Dr. Jeff today.
--- NOTE | 2019-05-15 13:10 | PCM.OPNOTE ---
- General Post-Op/Procedure Note Date of Surgery/Procedure: 05/11/19 Operative Procedure(s): left total knee arthroplasty Pre Op Diagnosis: left knee osteoarthrosis Post-Op Diagnosis: Same Anesthesia Technique: Local, MAC, Spinal Primary Surgeon: Abdi Jeff Anesthesia Provider: Saba Mace Piece Dyer: Abi Coy Piece Dyer: Bailee Haynes EBL in mLs: 650 Complications: None Condition: Good Free Text/Narrative:: 04/24 10mm 29x9
--- NOTE | 2019-05-15 14:04 | OR ---
DATE OF OPERATION: 05/11/2019 SURGEON: Abdi Jeff MD OPERATION PERFORMED: Left total knee arthroplasty. PREOPERATIVE DIAGNOSIS: Left knee osteoarthrosis. POSTOPERATIVE DIAGNOSIS: Left knee osteoarthrosis. ANESTHESIA: Local MAC with spinal. ANESTHESIA PROVIDER: Saba Mace CRNA VICE PRESIDENT OF CONSULTING SERVICES: Abi Coy PA-C; and Bailee Haynes LPN ESTIMATED BLOOD LOSS: 650 mL. COMPLICATIONS: None. CONDITION: Stable. IMPLANTS: 1. [place] size 3 press-fit CR femur. 2. Saji size 3 press-fit tibial base plate. 3. Saji size 3, 10 mm CS polyethylene insert. 4. [place] size 29 x 9 mm press fit patella. DESCRIPTION OF PROCEDURE: The patient was identified in the preop holding area. Proper site was marked and identified by the surgeon. The patient was taken back to the operating theater. After adequate anesthesia, the patient's left lower extremity had a nonsterile tourniquet applied and it was sterilely prepped and draped in the usual sterile fashion. OR time-out was performed. The patient received 2 g IV Ancef. At this time, the left lower extremity was exsanguinated. Tourniquet was insufflated to 300 mmHg. Standard medial parapatellar incision was made. Medial parapatellar arthrotomy was created. Deep fibers of the MCL were raised and anterior fat pad was resected. At this time, attention was turned to the patella. Patella measured 21, it was resected to a 13 for 29 x 9 mm patella. Drill holes were then drilled and found to be in adequate position. The drill was then drilled in the distal femur and the intramedullary distal femoral cutting guide was then placed. 8 mm was resected off the distal femur and was found to be an adequate resection. Sizing guide was placed. It was found to be a size 3 press-fit CR femur that was shown on the implant record at the beginning of this dictation. The drill holes were drilled for the epicondylar axis using [place] line and epicondyles as reference. At this time, the 4-in - 1 cutting block was placed. An anterior posterior and anterior and posterior chamfer cuts were then completed. Attention was turned to the tibia. The posterior medial lateral retractors were placed. The extramedullary tibial guide was placed. It was placed in the old footprint of the ACL. It was aligned with the center of the ankle and 0 degrees of slope, 9 mm was then resected off the unaffected side. There was found to be an acceptable reduction. At this time, posterior osteophytes were removed along with medial and lateral meniscus. A trial implant was placed with a correct sized tibia that was mentioned at the beginning of the dictation. A Saji size 3, 10 mm CS polyethylene insert was then placed. The patient's knee was brought through range of motion. The patella was tracking centrally and was stable to varus and valgus stress. Alignment was found to be roughly at 0 degrees. The tibia was stamped and drilled in proper rotation. The universal tibial base plate was impacted in place. Next, the Saji size 3 press-fit CR femur impacted into place and the [place] size 3, 10 mm CS polyethylene insert was placed. The patient's knee was brought into full extension. The patella was then press-fit in place at this time. Tourniquet was deflated. One liter dilute Betadine solution was irrigated through the knee along with 3 L of pulse lavage irrigation with Ancef. Periarticular injection was then completed. The patient's knee was brought through a range of motion. Knee was found to be stable to varus valgus stress, the patella was tracking centrally with full range of motion. At this time, a #2 barbed suture was used for closure of the medial parapatellar arthrotomy. Topical tranexamic acid was placed. 2-0 Vicryl was used subcutaneously, Prineo was used for the skin. The patient tolerated the procedure well and was sent to the PACU in stable condition. MMODAL /[id number]
== END 2019-05-13 14:00 | disposition home or self-care (01) | DRG 302 ==
LOC: JD.MS 05-11 08:31
PROVIDERS: ADMIT Orthopaedic Surgery; ATTEND Orthopaedic Surgery
PROC: 0SRD0JA Replacement of Left Knee Joint with Synthetic Substitute, Uncemented, Open Approach (ICD-10-PCS; principal; 2019-05-11)
DX: M17.12 Unilateral primary osteoarthritis, left knee (principal); F32.9 Major depressive disorder, single episode, unspecified; I10 Essential (primary) hypertension; R79.89 Other specified abnormal findings of blood chemistry; G47.00 Insomnia, unspecified; E03.9 Hypothyroidism, unspecified; J45.909 Unspecified asthma, uncomplicated; G47.33 Obstructive sleep apnea (adult) (pediatric); E11.9 Type 2 diabetes mellitus without complications; M54.9 Dorsalgia, unspecified; G89.29 Other chronic pain; H81.10 Benign paroxysmal vertigo, unspecified ear; K21.9 Gastro-esophageal reflux disease without esophagitis; E66.9 Obesity, unspecified; Z88.2 Allergy status to sulfonamides; Z88.4 Allergy status to anesthetic agent; Z79.890 Hormone replacement therapy; Z79.899 Other long term (current) drug therapy; Z68.41 Body mass index [BMI] 40.0-44.9, adult; Z85.038 Personal history of other malignant neoplasm of large intestine
CPT/HCPCS: 01402; 36415; 64450; 73560-26-LT; 73560-LT; 80053; 82962; 85027; 94762; 97110-GP; 97116-GP; 97161-GP; 97165-GO; 97535-GO; A9270-GY; C1776; J0171; J0690; J0697; J1885; J2001; J2270; J2370; J2405; J2704; J2795; J3010; J3370; J3490; J7120

== ENCOUNTER 2022-07-08 09:53 | Day surgery (SDC) | payer BC ==
[~2022-07-08 09:53] MED LIST changes: +Sodium Chloride 0.9% 10 ML Syringe FLUSH SCH
[2022-07-08] MEDS ORDERED: Propofol 200 MG/20 ML SDV ONE ×2 (11:43→13:17)
[2022-07-08] MEDS ORDERED: fentaNYL 100 MCG/2 ML SDV ONE (11:43)
[2022-07-08] MEDS ORDERED: Bupivacaine 0.5% 30 ML SDV ONE (12:36)
[2022-07-08] MEDS ORDERED: Midazolam 1 MG/ML 2 ML SDV ONE (12:40)
[2022-07-08] MEDS ORDERED: Labetalol 100 MG/20 ML MDV ONE (13:00)
[2022-07-08 16:24] VITALS: BP 142/99; PULSE 83
== END 2022-07-08 14:47 | disposition home or self-care (01) ==
LOC: JD.SDS 09:53
PROVIDERS: ATTEND Surgery
DX: K29.70 Gastritis, unspecified, without bleeding (principal); K31.89 Other diseases of stomach and duodenum; K64.8 Other hemorrhoids; K58.0 Irritable bowel syndrome with diarrhea; K25.9 Gastric ulcer, unspecified as acute or chronic, without hemorrhage or perforation; F32.A Depression, unspecified; K64.4 Residual hemorrhoidal skin tags; K21.9 Gastro-esophageal reflux disease without esophagitis; J45.909 Unspecified asthma, uncomplicated; E11.9 Type 2 diabetes mellitus without complications; E03.9 Hypothyroidism, unspecified; E66.9 Obesity, unspecified; Z87.11 Personal history of peptic ulcer disease; Z80.0 Family history of malignant neoplasm of digestive organs; Z90.710 Acquired absence of both cervix and uterus; Z90.49 Acquired absence of other specified parts of digestive tract; Z86.010 Personal history of colon polyps; Z79.899 Other long term (current) drug therapy; Z79.890 Hormone replacement therapy; Z88.2 Allergy status to sulfonamides; Z88.8 Allergy status to other drugs, medicaments and biological substances; Z79.84 Long term (current) use of oral hypoglycemic drugs; Z68.41 Body mass index [BMI] 40.0-44.9, adult
CPT/HCPCS: 43239; 45398; J2250; J2704; J3010; J3490; J7120; 00813